=== PATIENT | male | born 1930 | race Caucasian/White ===

== ENCOUNTER 2017-03-10 11:27 | Inpatient (IN) | payer MEDICARE ==
[2017-03-10] MEDS ORDERED: SODIUM CHLORIDE 0.9% 1,000 ML IV STA (11:58)
--- NOTE | 2017-03-10 12:01 | ED ---
General Adult HPI - General Chief complaint: Extremity Injury, Lower Stated complaint: PVD Time Seen by Provider: 03/10/17 11:34 Source: patient, family, RN notes reviewed Mode of arrival: EMS Limitations: no limitations - History of Present Illness Initial comments: Patient is a pleasant 86-year-old male presenting to the emergency department with concerns for leg wounds. Patient has chronic leg problems and leg wounds. Patient has previously been seen in the wound center for this. Pain has been worse over the past few days. Patient has limited ability take care of self. No fevers. Family states wounds and redness has worsened over the past couple of days. Discomfort is however this time following Glen at home. - Related Data Home Medications Medication Instructions Recorded Confirmed HYDROcodone/APAP 7.5-325MG [Glen 1 tab PO Q6HR PRN 01/05/15 03/10/17 7.5-325] Simvastatin [Zocor] 40 mg PO HS 01/05/15 03/10/17 Aspirin EC [Ecotrin Low Dose] 81 mg PO DAILY 02/07/15 03/10/17 Losartan [Cozaar] 50 mg PO BID 05/21/15 03/10/17 Previous Rx's Medication Instructions Recorded Spironolactone [Aldactone] 25 mg PO DAILY #60 tab 05/28/15 Allergies Allergy/AdvReac Type Severity Reaction Status Date / Time No Known Allergies Allergy Verified 03/10/17 13:15 Review of Systems ROS Statement: Those systems with pertinent positive or pertinent negative responses have been documented in the HPI. ROS Other: All systems not noted in ROS Statement are negative. Constitutional: Denies: fever, chills Eyes: Denies: eye pain ENT: Denies: ear pain Respiratory: Denies: cough Cardiovascular: Denies: chest pain Endocrine: Denies: fatigue Gastrointestinal: Denies: abdominal pain Genitourinary: Denies: dysuria Musculoskeletal: Denies: back pain Skin: Reports: rash Neurological: Denies: headache Past Medical History Past Medical History: Coronary Artery Disease (CAD), Chest Pain / Angina, Heart Failure, Hyperlipidemia, Hypertension, Myocardial Infarction (IA) Additional Past Medical History / Comment(s): CELLULITIS, CHRONIC BACK PAIN, psoriases, 3-15 wound culture(legs came back mssa) Last Myocardial Infarction Date:: 1989 History of Any Multi-Drug Resistant Organisms: None Reported Past Surgical History: Back Surgery, Bowel Resection, Coronary Bypass/CABG, Hernia Repair, Pacemaker, Tonsillectomy Additional Past Surgical History / Comment(s): small bowel resection d/t blockage, yessy inguinal hernia repairCABG in 1989 at [facility]. Past Anesthesia/Blood Transfusion Reactions: No Reported Reaction Type of Cardiac Device: AICD Device Placement Date:: May 19, 2015 Past Psychological History: No Psychological Hx Reported Additional Psychological History / Comment(s): . Lives in the family home with his . He is a lifelong nonsmoker. 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 Smoking Status: Never smoker Past Alcohol Use History: None Reported Past Drug Use History: None Reported - Past Family History Father Family Medical History: Coronary Artery Disease (CAD) Additional Family Medical History / Comment(s): of heart attack age 86 Mother Additional Family Medical History / Comment(s): age 77 of stroke or heart attack General Exam Limitations: no limitations General appearance: alert, in no apparent distress Head exam: Present: atraumatic Eye exam: Present: normal appearance, PERRL ENT exam: Present: normal oropharynx Neck exam: Present: normal inspection Respiratory exam: Present: normal lung sounds bilaterally Cardiovascular Exam: Present: regular rate, normal rhythm, other (Difficult to obtain pedal pulses by palpation. Cap refill less than 2 seconds. No pallor or coolness.) GI/Abdominal exam: Present: soft. Absent: tenderness Extremities exam: Present: other (Bilateral lower leg erythema and multiple skin ulcers stage II to 3.) Neurological exam: Present: alert Psychiatric exam: Present: normal affect, normal mood Skin exam: Present: erythema (Bilateral lower leg with multiple skin ulcers) Medical Decision Making - Medical Decision Making Patient was updated. Case was discussed in detail with Dr. Lopez who patient does have an appointment with today. He will admit. Consult for Dr. ware. IV antibiotics will be started. - Lab Data Result diagrams: 03/10/17 12:48 Lab Results 03/10/17 03/10/17 Range/Units 12:48 12:48 WBC 12.4 H (3.8-10.6) k/uL RBC 5.19 (4.30-5.90) m/uL Hgb 14.1 (13.0-17.5) gm/dL Hct 46.1 (39.0-53.0) % MCV 88.9 (80.0-100.0) fL MCH 27.1 (25.0-35.0) pg MCHC 30.5 L (31.0-37.0) g/dL RDW 14.6 (11.5-15.5) % Plt Count 199 (150-450) k/uL Neutrophils % 76 % Lymphocytes % 14 % Monocytes % 7 % Eosinophils % 1 % Basophils % 1 % Neutrophils # 9.4 H (1.3-7.7) k/uL Lymphocytes # 1.8 (1.0-4.8) k/uL Monocytes # 0.8 (0-1.0) k/uL Eosinophils # 0.1 (0-0.7) k/uL Basophils # 0.1 (0-0.2) k/uL Hypochromasia Marked PT 12.3 H (9.0-12.0) sec INR 1.2 (<1.1) APTT 26.4 (22.0-30.0) sec Disposition Clinical Impression: Bilateral lower leg cellulitis Disposition: ADMITTED IP TO THIS [facility] Time of Disposition: 13:27
[2017-03-10 13:13] LABS: Basophils # (A) 0.1 k/uL (0-0.2); Basophils % (A) 1 %; CH 27.1; CHCM 30.5; Eosinophils # (A) 0.1 k/uL (0-0.7); Eosinophils % (A) 1 %; HCT 46.1 % (39.0-53.0); HDW 2.81; HGB 14.1 gm/dL (13.0-17.5); Hypochromasia Marked; Luc # (Auto) 0.26; Luc % (Auto) 2; Lymphocytes # (A) 1.8 k/uL (1.0-4.8); Lymphocytes % (A) 14 %; MCH 27.1 pg (25.0-35.0); MCHC 30.5 g/dL (31.0-37.0); MCV 88.9 fL (80.0-100.0); Mean Platelet Volume 7.1; Monocytes # (A) 0.8 k/uL (0-1.0); Monocytes % (A) 7 %; Neutrophils # (A) 9.4 k/uL (1.3-7.7); Neutrophils % (A) 76 %; RBC 5.19 m/uL (4.30-5.90); RDW 14.6 % (11.5-15.5); WBC 12.4 k/uL (3.8-10.6); WBC (Perox) 12.19
[2017-03-10 13:22] LABS: INR 1.2 (<1.1); Partial Thromboplastin Time 26.4 sec (22.0-30.0); Prothrombin Time 12.3 sec (9.0-12.0)
[2017-03-10 13:24] LABS: ALT 30 U/L (21-72); AST 38 U/L (17-59); Alkaline Phosphatase 113 U/L (38-126); Anion Gap 8 mmol/L; Blood Urea Nitrogen 32 mg/dL (9-20); Calcium 9.6 mg/dL (8.4-10.2); Carbon Dioxide 25 mmol/L (22-30); Chloride 105 mmol/L (98-107); Glucose 98 mg/dL (74-99); Non-African American GFR(MDRD) >60 (>60 ml/min/1.73 sqM); Sodium 138 mmol/L (137-145); Total Bilirubin 1.4 mg/dL (0.2-1.3); Total Protein 7.2 g/dL (6.3-8.2)
[2017-03-10] MEDS ORDERED: ACETAMINOPHEN TAB 325 MG TAB PO PRN (13:27)
[2017-03-10] MEDS ORDERED: HYDROcodone/APAP 5-325MG 1 EACH TAB PO PRN (13:27)
[2017-03-10] MEDS ORDERED: NALOXONE 0.4 MG/ML 1 ML VIAL IV PRN (13:27)
[2017-03-10] MEDS ORDERED: AMPICILLIN-SULBACTAM 3 GM in SODIUM CHLORIDE 0.9% 100 ML IVPB STA (13:31)
[2017-03-10 13:38] LABS: Potassium 5.2 mmol/L (3.5-5.1)
[2017-03-10] MEDS: MORPHINE SULFATE 4 MG/ML SYRINGE IV PRN ×2 (13:50→20:31)
--- NOTE | 2017-03-10 14:10 | XR ---
EXAMINATION TYPE: XR tibia fibula bilateral DATE OF EXAM: 03/10/2017 1:51 PM COMPARISON: NONE HISTORY: Swelling TECHNIQUE: Two views are submitted bilaterally. FINDINGS: The osseous structures are intact. The joint spaces are preserved. Diffuse osteopenia noted. There are vascular calcifications. Arthropathy of the ankle and knee joints. Calcification the anterior sof t tissues of anterior to the right femur may be vascular related to synovial calcifications. IMPRESSION: 1. No acute osseous abnormality. Diffuse osteopenia and post arthritic changes. No diagnostic evidenc e of osteomyelitis.
[2017-03-10] MEDS ORDERED: AMPICILLIN-SULBACTAM 1.5 GM in SODIUM CHLORIDE 0.9% 50 ML IVPB SCH (18:00)
[2017-03-10] MEDS: COLLAGENASE 250 UNIT/GM OINTMENT 30 GM TUBE TOPICAL SCH (20:24)
[2017-03-10] MEDS: LOSARTAN 50 MG TAB PO SCH (20:30)
[2017-03-10] MEDS: ceFAZolin 2 GM in SODIUM CHLORIDE 0.9% 100 ML IVPB SCH (20:30)
[2017-03-10] MEDS: ATORVASTATIN 40 MG TAB PO SCH (20:30)
[2017-03-10] MEDS: SODIUM CHLORIDE 0.9% 1,000 ML IV SCH (20:32)
[2017-03-10] MEDS: NYSTATIN 100,000 UNIT/GM POWD 15 GM TOPICAL SCH (20:39)
[2017-03-10] MEDS: HYDROcodone/APAP 5-325MG 1 EACH TAB PO PRN (23:43)
[2017-03-10] MEDS ORDERED: IPRATROPIUM 0.5 MG/2.5 ML NEBU INHALATION PRN (23:48)
[2017-03-10] MEDS ORDERED: ALBUTEROL NEBULIZED 2.5 MG/3 ML INHALATION PRN (23:49)
[2017-03-10] MEDS ORDERED: FUROSEMIDE 10 MG/ML 4 ML VIAL IV STA (23:50)
[2017-03-10] MEDS ORDERED: ALBUTEROL NEB (CONC) 2.5 MG/0.5 ML INHALATION PRN (23:56)
[2017-03-11] MEDS ORDERED: IPRATROPIUM-ALBUTEROL 3 ML NEB INHALATION PRN (00:16)
--- NOTE | 2017-03-11 00:47 | XR ---
EXAM: XR Chest, 1 View CLINICAL HISTORY: Reason: shortness of breathe TECHNIQUE: Frontal view of the chest. COMPARISON: Chest radiographs 07/29/2016 FINDINGS: Lungs: [id number] cardiac enlargement. Thoracic aorta is tortuous and elongated. There is mild pulmonary vascular congestion. Increased interstitial opacities throughout both lungs with more confluence infiltrative opacities in both lung bases. Pleural space: Evidence of small bilateral pleural effusions. Right diaphragmatic calcified pleural plaques. No evidence of pneumothorax. Heart: The moderate cardiac enlargement. Mediastinum: Unremarkable. Bones/joints: Post surgical changes of previous median sternotomy. Cardiac pacer/defibrillator device has leads extending to region of right ventricle. Degenerative changes involve the right shoulder. IMPRESSION: Previous median sternotomy and cardiac surgery. Cardiac pacer/defibrillator device. Mild to moderate cardiomegaly with findings suggesting congestive failure and mild pulmonary edema with small bilateral pleural effusions. Underlying basilar pneumonia cannot be excluded and clinical correlation is recommended.
[2017-03-11] MEDS: ceFAZolin 2 GM in SODIUM CHLORIDE 0.9% 100 ML IVPB SCH ×2 (02:04→08:22)
[2017-03-11 02:50] LABS: Amorphous Sediment,Urine Rare /hpf; Appearance,Urine Clear (Clear); Bilirubin,Urine Negative (Negative); Glucose,Urine (UA) Negative (Negative); Ketones,Urine Negative (Negative); Leukocyte Esterase,Urine Negative (Negative); Mucus,Urine Rare /hpf; Nitrite,Urine Negative (Negative); Particle Count 1392; Protein,Urine Negative (Negative); RBC,Urine >182 /hpf (0-5); Squamous Epithelial Cell,Urine <1 /hpf (0-4); UA Billing (MACRO vs. MICRO) MICRO; Urobilinogen,Urine <2.0 mg/dL (<2.0); WBC,Urine 1 /hpf (0-5)
[2017-03-11] MEDS: IPRATROPIUM-ALBUTEROL 3 ML NEB INHALATION SCH ×4 (07:47→20:50)
--- NOTE | 2017-03-11 07:49 | CONS ---
DATE OF CONSULTATION: 03/10/2017 Reason for consultation is lower extremity wound and cellulitis. HISTORY OF PRESENT ILLNESS: The patient is an 86-year-old male with a past medical history significant for coronary artery disease and cellulitis. Patient presenting to the ER now with occurrence of swelling redness and warmth to his lower extremities. Patient did mention that over the last 2 weeks, his legs were more swollen, he had have some blister that has opened up leading to some superficial ulceration. The legs are getting more red and painful. Pain described to be throbbing, 5 to 6/10 in radiation and no significant drainage from the wound. The patient denies any high-grade fever; however, did have some chills. With these symptoms, the patient has been evaluated by the ER physician, has been diagnosed with cellulitis and admitted to the hospital. I was asked to see the patient for further recommendation regarding antibiotic therapy. REVIEW OF SYSTEMS: CONSTITUTIONAL: Positive for weakness and chills. EYES: No complaint. ENT: No complaint. RESPIRATORY: No complaint. CARDIOVASCULAR: No complaint. GENITOURINARY: No complaint. GASTROINTESTINAL: No complaint. MUSCULOSKELETAL: No complaint. INTEGUMENT: As per HPI. PSYCHOLOGICAL: No complaint. ENDOCRINE: No complaint. NEUROLOGIC: No complaint. PAST MEDICAL HISTORY: Coronary artery disease and heart failure, hypertension, hyperlipidemia, and lower extremity venostasis ulcer and cellulitis, chronic back pain. PAST SURGICAL HISTORY: Back surgery, bowel resection, coronary artery bypass grafting, hernia repair, pacemaker placement, tonsillectomy, AICD placement. SOCIAL HISTORY: No history of smoking, drinking, or drug use. FAMILY HISTORY: Father has coronary artery disease, of heart disease at the age of 86, mother from stroke at the age of 77. ALLERGIES: No known drug allergies. Medications currently include the patient is on Tylenol, Vina, aspirin, Lipitor, Cozaar, morphine sulfate, Narcan, nystatin, did receive dose of Unasyn in the ER. On examination, blood pressure is 129/67 with a pulse of 87, temperature 96.9, he is 94% on room air. General description is an elderly male, lying in bed in no distress. No tachypnea or accessory muscle for respiration use. HEENT examination shows no pallor or scleral icterus. Oral mucous membrane dry. NECK: Trachea central, no thyromegaly. LUNGS: Unlabored breathing. Clear to auscultation anteriorly. HEART: S1, S2. Regular rate and rhythm. ABDOMEN: Soft, no tenderness. Lower extremity with some superficial laceration and chronic venostasis with erythema surrounding it and evidence of athlete's foot. No foul-smelling drainage. NEUROLOGICAL: The patient is awake, alert, oriented x3. LABS: Hemoglobin is 14.1, white count is 12.4. BUN of 32 with a creatinine of 0.79. Electrolytes have been normal. DIAGNOSTIC IMPRESSION AND PLAN: Patient with bilateral lower extremity superficial ulceration likely venostasis ulcer with secondary cellulitis in a patient with evidence of athlete's foot likely a streptococcal cellulitis. PLAN: 1. Discontinue the Unasyn. 2. Start the patient on cefazolin 2 gm q.8. 3. Will apply Santyl to the wound after following with a moist dressing and then an Hai wrap from just above the toes to below the knee. 4. Nystatin cream in between the toes. 5. Will follow up on the clinical condition and cultures to further adjust the medication if needed. Thank you for this consultation. Will follow this patient along with you. POLO
[2017-03-11] MEDS ORDERED: ALBUTEROL NEBULIZED 2.5 MG/3 ML INHALATION SCH (08:00)
[2017-03-11] MEDS ORDERED: IPRATROPIUM 0.5 MG/2.5 ML NEBU INHALATION SCH (08:00)
[2017-03-11] MEDS ORDERED: ALBUTEROL NEB (CONC) 2.5 MG/0.5 ML INHALATION SCH (08:00)
[2017-03-11] MEDS: SPIRONOLACTONE 25 MG TAB PO SCH (08:21)
[2017-03-11] MEDS: ASPIRIN 81 MG CHEW PO SCH (08:21)
[2017-03-11] MEDS: LOSARTAN 50 MG TAB PO SCH ×2 (08:21→20:39)
[2017-03-11] MEDS: NYSTATIN 100,000 UNIT/GM POWD 15 GM TOPICAL SCH ×2 (08:23→20:40)
[2017-03-11] MEDS: HYDROcodone/APAP 5-325MG 1 EACH TAB PO PRN ×3 (08:23→16:30)
--- NOTE | 2017-03-11 08:32 | HP ---
DATE OF ADMISSION: CHIEF COMPLAINT: Pain in legs. HISTORY OF PRESENT ILLNESS: This is another admission for this 86-year-old gentleman who has chronic infected ulcerations of the lower legs and feet. This appears to be due to arterial insufficiency. He and his family states that he sees a physician for the ulcers, but that he has never undergone an arterial vascular evaluation. Pain has gotten severe that he cannot walk. He does have superficial ulcers of the lower legs, ankles and feet. REVIEW OF SYSTEMS: He has had no CVAs, neurologic problems, shortness of breath, cough, hemoptysis, etc. but does have a history of heart disease. He had a cardiac arrest in the past and underwent a 5-vessel coronary artery bypass in 1984. REVIEW OF SYSTEMS: He has had no other complaints. He had no history of pulmonary disease. He has never smoked. He has not recently had any angina, orthopnea, PND, palpitations, etc. He has had no significant abdominal pain, food intolerance, nausea, vomiting, hematemesis, melena, hematochezia, jaundice, etc. His renal function is normal according to the family history. He is not diabetic. Family history and personal and social histories reveal that he is on aspirin, ( ), Zocor, Cozaar and Vicodin 7.5. Other surgeries include 3 procedures on his back, release of the small bowel obstruction, 2 hernia, and placement of a pacemaker/defibrillator. He has been told that he has rheumatoid arthritis. PHYSICAL EXAMINATION: Blood pressure 151/78 with a pulse of 80, respirations of 25, and he is afebrile. GENERAL: He appeared to be well developed, well nourished and in no acute distress. Skin color is normal. Skin is warm and dry. He might have been slightly pale. Neck veins not distended. The carotids are normal. Chest is clear. Cardiac exam demonstrated what sounded like sinus rhythm, but no murmurs or extra sounds. ABDOMEN: Soft, nontender without visceromegaly or masses. Extremities demonstrated erythema from the knees down with multiple infected ulcers of varying sizes on the shins, sides of the lower legs, over the malleoli and on the top. Feet were cool and pulses cannot be palpated. There is moderate edema. Neurologically, he is intact. IMPRESSION: 1. Peripheral vascular occlusive disease. 2. Ischemic ulcers of the lower extremities. 3. History of coronary artery disease with coronary artery bypass graft. 4. History of cardiac arrhythmia. PLAN: 1. Bed rest. 2. IV fluids. 3. IV antibiotics. 4. Vascular Surgery consult.
--- NOTE | 2017-03-11 09:44 | P.PN ---
Subjective 86-year-old male being seen and examined. Patient continues to report having pain in the bilateral lower extremities. Hai wrap son to the bilateral lower extremities there is an increase improvement with decrease edema to the lower extremities. Patients being followed by Dr.saeed Dr. Martinez recommendations noted appreciated and reviewed Objective - Vital Signs Vital signs: Vital Signs Temp 98.3 F 03/11/17 07:00 Pulse 70 03/11/17 08:00 Resp 20 03/11/17 08:00 BP 145/70 03/11/17 07:00 Pulse Ox 94 L 03/11/17 07:00 Intake & Output 03/10/17 03/11/17 03/11/17 18:59 06:59 18:59 Intake Total 180 Output Total 2405 1000 Balance -2225 -1000 Weight 60.5 kg 60.5 kg Intake: IV 180 Sodium Chloride 0.9% 1, 80 000 ml @ 20 mls/hr IV . Q24H SANDIE Rx#:[id number] ceFAZolin 2 gm In Sodium 100 Chloride 0.9% 100 ml @ 100 mls/hr IVPB Q8HR SANDIE Rx#:[id number] Output: Urine 2125 1000 Uretheral (Adler) 1000 Post Void Residual 280 Other: Voiding Method Bedside Commode Urinal Urinal # Voids 75 75 - Exam GENERAL APPEARANCE: The patient is alert, oriented, in no acute distress. VITAL SIGNS: Reviewed HEENT: Head is normocephalic and atraumatic. Pupils are equal and reactive. The nares are patent. Oropharynx is clear without lesions. NECK: Supple without lymphadenopathy. Traches midline. HEART: S1, S2. Regular rate and rhythm. Denying pain LUNGS: No crackles or wheezes are heard. ABDOMEN: Soft, nontender, nondistended with good bowel sounds. No peritoneal signs. No palpable organomegaly or masses. EXTREMITIES: Normal skin color and turgor. Radial pedal pulses are 2/4 bilaterally. Hai wrap son to the bilateral lower extremities decreasing edema to the lower extremities NEUROLOGICAL: No focal deficits. Strength and sensation are grossly intact. - Labs CBC & Chem 7: 03/10/17 12:48 03/10/17 12:48 Labs: Abnormal Lab Results - Last 24 Hours (Table) 03/11/17 Range/Units 02:09 Urine Blood Moderate H (Negative) Urine RBC >182 H (0-5) /hpf Amorphous Sediment Rare H (None) /hpf Urine Mucus Rare H (None) /hpf Microbiology - Last 24 Hours (Table) 03/10/17 13:46 Gram Stain - Preliminary Leg - Right Wound Culture - Preliminary Assessment and Plan Plan: Impression Present on admission bilateral lower extremity cellulitis below the knee Known coronary artery disease with prior coronary artery bypass grafting Present on admission superficial ulceration with a blister formation to the bilateral lower extremities Present on admission chronic venous stasis with erythema area with evidence of athletic foot disease Present on admission peripheral vascular occlusive disease Plan Pain control Resume home meds as appropriate Continue recommendations by Dr. Tai infectious disease antibiotics as directed Continue recommendations by Dr. Martinez vascular Further recommendations pending DVT and GI prophylaxis The above dictated assessment and findings were discussed with dr tess Dan and the plan of care have been dictated as directed. Cassandra Moon nurse practitioner acting as a scribe for dr pulido
[2017-03-11 09:54] LABS: Basophils # (A) 0.1 k/uL (0-0.2); Basophils % (A) 0 %; CHCM 30.7; Eosinophils # (A) 0.1 k/uL (0-0.7); Eosinophils % (A) 1 %; HCT 42.4 % (39.0-53.0); HDW 2.89; HGB 13.1 gm/dL (13.0-17.5); Hypochromasia Moderate; Luc # (Auto) 0.18; Luc % (Auto) 1; Lymphocytes # (A) 1.1 k/uL (1.0-4.8); Lymphocytes % (A) 8 %; MCH 27.2 pg (25.0-35.0); MCHC 30.8 g/dL (31.0-37.0); MCV 88.3 fL (80.0-100.0); Mean Platelet Volume 6.9; Monocytes # (A) 0.7 k/uL (0-1.0); Monocytes % (A) 5 %; Neutrophils # (A) 11.8 k/uL (1.3-7.7); Neutrophils % (A) 85 %; RDW 14.4 % (11.5-15.5); WBC (Perox) 14.13
[2017-03-11] MEDS: COLLAGENASE 250 UNIT/GM OINTMENT 30 GM TUBE TOPICAL SCH (10:00)
[2017-03-11 10:04] LABS: Chloride 104 mmol/L (98-107); Glucose 176 mg/dL (74-99); Potassium 4.4 mmol/L (3.5-5.1); Total Protein 6.5 g/dL (6.3-8.2)
[2017-03-11 10:05] LABS: ALT 27 U/L (21-72); AST 28 U/L (17-59); Alkaline Phosphatase 95 U/L (38-126); Anion Gap 10 mmol/L; Blood Urea Nitrogen 25 mg/dL (9-20); Calcium 8.9 mg/dL (8.4-10.2); Carbon Dioxide 26 mmol/L (22-30); Magnesium 1.7 mg/dL (1.6-2.3); Non-African American GFR(MDRD) >60 (>60 ml/min/1.73 sqM); Sodium 140 mmol/L (137-145); Total Bilirubin 1.4 mg/dL (0.2-1.3)
[2017-03-11] MEDS: MORPHINE SULFATE 4 MG/ML SYRINGE IV PRN (10:52)
[2017-03-11] MEDS ORDERED: IV VANCOMYCIN PER PHARMACY 1 EACH MISC MISCELLANE PRN (13:00)
--- NOTE | 2017-03-11 13:14 | P.CON ---
Consult Note - . Consult date: 03/11/17 Assessment/Plan:: DR. WILSON [facility]; LISA GARCIA IS COVERING UNTIL 03/14/2017 AT 0800 impression 1. 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 pulmonary fibrosis 3. CHF/ ischemic cardiomyopathy 4. atrial fibrillation plan; 1. mild compression dressings with aquacell silver and adaptik on open wounds 2. offload both heels and elevate both legs 3. continue current medical regimen/antibiotics 4. Dr. Wilson will be available on 03/14/2017 for further questions/orders HPI; 86 y/o man, poor historian, long-standing patient of Dr. Wilson with known mixed arterial and venous ulcers of both legs. Patient underwent saphenectomy left leg years ago for CABG procedure. Now with erythema and bullae formation both legs that in places are clean and granulating ulcers. Patient has been treated in the wound care center in the past for these ulcers with aquacell silver dressings PMHx, PSHx, Habits, Meds; reviewed PE: HEENT; no bruits, mild JVD, trachea midline, no thyromegaly or lymphadenopathy Lungs; clear bilaterally Heart; RRR, normal S1 and S2; well-healed median sternotomy incision ABD; soft, non-tender, well-healed lower midline incision EXTR; femoral pulses are palpable bilaterally; popliteal and pedal pulses are not, capillary refill of 3 seconds bilaterally; evidence of venous insufficiency CEAP class 5 bilaterally; well-healed left saphenectomy Ulcers both legs as follows; all are granulating, no necrotic tissue right dorsum foot 3x2cm right lower leg anteriorly; 5.5x4 cm and 3.5x2cm left leg anteriorly; 4.5x1cm and 2.5x2cm erythema bilaterally with ascending lymphangitis left leg impression/plan as noted above
[2017-03-11] MEDS: CIPROFLOXACIN HCL 500 MG TAB PO SCH ×2 (13:30→20:39)
[2017-03-11] MEDS ORDERED: VANCOMYCIN 1,750 MG in SODIUM CHLORIDE 0.9% 250 ML IVPB ONE (14:00)
--- NOTE | 2017-03-11 14:11 | PN ---
CHIEF COMPLAINT: Cellulitis in the legs. HISTORY OF PRESENT ILLNESS: This gentleman is complaining of a lot of discomfort in the legs. They have been wrapped with Hai wraps. His pain is actually a little bit worse. PHYSICAL EXAM: He remains slightly pale. Chest is clear. Cardiac exam is normal. ABDOMEN: Soft and nontender. Extremities are wrapped with Hai wraps. There is swelling and little bit of cyanosis in the toes. IMPRESSION: 1. Ischemic ulcers of the lower extremities. 2. Cellulitis of the lower extremities. PLAN: Continue with bed rest, IV antibiotics and await for further recommendations from vascular surgery and infectious disease.
[2017-03-11] MEDS: ATORVASTATIN 40 MG TAB PO SCH (20:39)
[2017-03-12] MEDS: HYDROcodone/APAP 5-325MG 1 EACH TAB PO PRN ×4 (00:04→23:13)
[2017-03-12] MEDS: VANCOMYCIN 1,000 MG in SODIUM CHLORIDE 0.9% 250 ML IVPB SCH ×3 (00:05→23:16)
[2017-03-12] MEDS: SODIUM CHLORIDE 0.9% 1,000 ML IV SCH ×2 (00:09→13:35)
--- NOTE | 2017-03-12 07:25 | PN ---
DATE OF SERVICE: 03/11/2017 Reason for follow-up is bilateral lower extremity venostasis ulcers and cellulitis. INTERVAL HISTORY: The patient is afebrile. Has been breathing comfortably. Complaining of pain in her leg area. Denies any chest pain or shortness of breath. No cough. No abdominal pain or any diarrhea. On examination, blood pressure 125/56 with pulse of 68, temperature 97.4. He is 94% in room air. Major description is middle aged male up in the bed in no distress. RESPIRATORY SYSTEM: Unlabored breathing. Clear to auscultation anteriorly. HEART: S1, S2. Regular rate and rhythm. ABDOMEN: Soft. No tenderness. LEGS: Currently wrapped up. No obvious drainage on the dressing. LABS: Hemoglobin is 13.1, white count 14 with a BUN of 25, creatinine 0.81. Wound culture showing gram-negative and possible MRSA. DIAGNOSTIC IMPRESSION AND PLAN: Patient with bilateral lower extremity venostasis ulcer with secondary cellulitis. Culture now showing gram-negative and possible methicillin-resistant Staphylococcus aureus. Antibiotic will be adjusted to Vancomycin and p.o. Cipro. Continue local wound care to the legs. Continue supportive care. POLO
[2017-03-12] MEDS: IPRATROPIUM-ALBUTEROL 3 ML NEB INHALATION SCH ×4 (07:42→20:57)
[2017-03-12] MEDS: ASPIRIN 81 MG CHEW PO SCH (08:36)
[2017-03-12] MEDS: SPIRONOLACTONE 25 MG TAB PO SCH (08:36)
[2017-03-12] MEDS: LOSARTAN 50 MG TAB PO SCH ×2 (08:36→21:35)
[2017-03-12] MEDS: CIPROFLOXACIN HCL 500 MG TAB PO SCH ×2 (08:36→21:35)
--- NOTE | 2017-03-12 13:10 | PN ---
CHIEF COMPLAINT: Cellulitis and multiple ulcers of the lower extremities. HISTORY OF PRESENT ILLNESS: The gentleman is doing okay, but he is still complaining of a lot of pain in the lower legs. They are currently wrapped with Hai wraps and being followed by Vascular Surgery. PHYSICAL EXAM: Toes are a little bit cyanotic, but there is capillary fill. Chest is clear. Cardiac exam is normal. ABDOMEN: Soft, nontender. IMPRESSION: 1. Cellulitis of the lower extremities with multiple ulcers. 2. Peripheral vascular occlusive disease. PLAN: Continue current treatment and follow with Vascular Surgery regarding any further possible interventions.
[2017-03-12] MEDS: NYSTATIN 100,000 UNIT/GM POWD 15 GM TOPICAL SCH ×2 (13:14→21:35)
[2017-03-12] MEDS: COLLAGENASE 250 UNIT/GM OINTMENT 30 GM TUBE TOPICAL SCH (13:14)
[2017-03-12] MEDS: MORPHINE SULFATE 4 MG/ML SYRINGE IV PRN (15:49)
[2017-03-12] MEDS: ATORVASTATIN 40 MG TAB PO SCH (21:35)
[2017-03-13] MEDS: HYDROcodone/APAP 5-325MG 1 EACH TAB PO PRN ×3 (03:21→21:49)
[2017-03-13] MEDS: MORPHINE SULFATE 4 MG/ML SYRINGE IV PRN ×2 (07:43→12:37)
[2017-03-13] MEDS: COLLAGENASE 250 UNIT/GM OINTMENT 30 GM TUBE TOPICAL SCH (07:43)
[2017-03-13] MEDS: NYSTATIN 100,000 UNIT/GM POWD 15 GM TOPICAL SCH ×2 (07:45→21:50)
--- NOTE | 2017-03-13 07:58 | PN ---
DATE OF SERVICE: 03/12/2017 Reason for follow-up: Bilateral lower extremity venous stasis ulcer and cellulitis. INTERVAL HISTORY: The patient did have a low grade fever this evening. The patient other denies significant chest pain or shortness of breath, no cough, abdominal pain or any worsening pain in the leg area. On examination, blood pressure 128/72 with a pulse of 64, temperature 97.5. He is 95% on 2 liters nasal cannula. GENERAL DESCRIPTION: Elderly male lying in bed in no distress. RESPIRATORY SYSTEM: Unlabored breathing. Clear to auscultation anteriorly. HEART: S1, S2. Regular rate and rhythm. Abdomen: Soft, no tenderness. Bilateral leg wound cellulitis. No obvious drainage on the dressing. LABS: Hemoglobin is 13.1, white count of 14 as of yesterday. the wound culture finalized with an E. coli with Enterobacter and MRSA. Blood culture negative. DIAGNOSTIC IMPRESSION AND PLAN: Patient with bilateral lower extremity venostasis ulcer with secondary cellulitis. Wound culture with MRSA Enterobacter specie currently covered on vancomycin, pharmacy to dose along with Cipro. Will continue local wound care with Santyl and martin wrap to the wound to evaluate the wounds tomorrow. Continue supportive care. POLO
[2017-03-13] MEDS: IPRATROPIUM-ALBUTEROL 3 ML NEB INHALATION SCH ×4 (08:11→20:44)
[2017-03-13] MEDS: ASPIRIN 81 MG CHEW PO SCH (08:23)
[2017-03-13] MEDS: LOSARTAN 50 MG TAB PO SCH ×2 (08:23→21:49)
[2017-03-13] MEDS: SPIRONOLACTONE 25 MG TAB PO SCH (08:23)
[2017-03-13] MEDS: CIPROFLOXACIN HCL 500 MG TAB PO SCH ×2 (08:25→21:49)
[2017-03-13] MEDS ORDERED: VANCOMYCIN TROUGH DUE 1 EACH MISC MISCELLANE ONE (11:00)
[2017-03-13 11:55] LABS: Anion Gap 8 mmol/L; Blood Urea Nitrogen 24 mg/dL (9-20); Calcium 8.7 mg/dL (8.4-10.2); Carbon Dioxide 23 mmol/L (22-30); Chloride 107 mmol/L (98-107); Glucose 137 mg/dL (74-99); Non-African American GFR(MDRD) >60 (>60 ml/min/1.73 sqM); Potassium 4.8 mmol/L (3.5-5.1); Sodium 138 mmol/L (137-145)
[2017-03-13] MEDS: VANCOMYCIN 1,000 MG in SODIUM CHLORIDE 0.9% 250 ML IVPB SCH (13:04)
[2017-03-13] MEDS: SODIUM CHLORIDE 0.9% 1,000 ML IV SCH (13:17)
--- NOTE | 2017-03-13 20:06 | PN ---
DATE OF SERVICE: 03/13/2017 CHIEF COMPLAINT: Cellulitis and stasis ulcers of the lower extremities. HISTORY OF PRESENT ILLNESS: This gentleman is doing fairly well, but he still in quite a bit of pain. He has had no other problems. PHYSICAL EXAMINATION: CHEST: Clear. The cardiac exam is normal. The abdomen soft and nontender and the legs are wrapped. IMPRESSION: Bilateral cellulitis of the lower extremities with stasis ulcers. PLAN: Continue with ( ) and intravenous antibiotics.
[2017-03-13] MEDS: ATORVASTATIN 40 MG TAB PO SCH (21:49)
[2017-03-14] MEDS: MORPHINE SULFATE 4 MG/ML SYRINGE IV PRN (01:13)
[2017-03-14] MEDS: IPRATROPIUM-ALBUTEROL 3 ML NEB INHALATION SCH ×4 (07:30→20:02)
--- NOTE | 2017-03-14 07:44 | PN ---
DATE OF SERVICE: 03/13/2017 Reason for followup is bilateral lower extremity wound and cellulitis. INTERVAL HISTORY: The patient is afebrile. Has been breathing comfortably. Denies any significant chest pain or cough. No abdominal pain. Denies diarrhea or pain in legs. On examination, blood pressure is 119/58 with a pulse of 80, temperature 98. He is 98% on 2 L nasal cannula. General description is an elderly male, up in the chair in no distress. RESPIRATORY SYSTEM: Unlabored breathing. Clear to auscultation anteriorly. HEART: S1, S2. Regular rate and rhythm. ABDOMEN: Soft. No tenderness. Bilateral foot wounds are currently dressed, no obvious drainage. LABS: Wound culture with MRSA and Enterobacter. DIAGNOSTIC IMPRESSION AND PLAN: Patient with bilateral lower extremity venostasis ulcer with secondary cellulitis. Continue local wound care with the Santyl. Followed by moist dressing and Hai wrap to decrease the swelling. continue antibiotic in the form of vancomycin and Cipro with the plan to finish therapy with oral antibiotics. Continue supportive care. MTDD
[2017-03-14] MEDS: ASPIRIN 81 MG CHEW PO SCH (08:14)
[2017-03-14] MEDS: SPIRONOLACTONE 25 MG TAB PO SCH (08:14)
[2017-03-14] MEDS: CIPROFLOXACIN HCL 500 MG TAB PO SCH ×2 (08:14→21:09)
[2017-03-14] MEDS: LOSARTAN 50 MG TAB PO SCH ×2 (08:14→21:09)
[2017-03-14] MEDS: NYSTATIN 100,000 UNIT/GM POWD 15 GM TOPICAL SCH ×2 (08:16→21:14)
[2017-03-14] MEDS: COLLAGENASE 250 UNIT/GM OINTMENT 30 GM TUBE TOPICAL SCH (08:16)
[2017-03-14] MEDS: VANCOMYCIN 1,000 MG in SODIUM CHLORIDE 0.9% 250 ML IVPB SCH ×4 (11:48→23:36)
[2017-03-14] MEDS: SODIUM CHLORIDE 0.9% 1,000 ML IV SCH (13:56)
[2017-03-14] MEDS: HYDROcodone/APAP 5-325MG 1 EACH TAB PO PRN ×3 (14:04→21:12)
[2017-03-14] MEDS: ATORVASTATIN 40 MG TAB PO SCH (21:09)
--- NOTE | 2017-03-14 21:25 | PN ---
DATE OF SERVICE: 03/14/2017 REASON FOR FOLLOWUP: Bilateral lower extremity venostasis ulcers and cellulitis. INTERVAL HISTORY: The patient is afebrile. He has been breathing comfortably. Denies significant pain to the leg wound area. No nausea, no vomiting. Denies any chest pain. No shortness of breath or cough. On examination, blood pressure is 159/75 with a pulse of 80, temperature 96.2. He is 92% on 3 L nasal cannula. General description is an elderly male up in the bed in no distress. RESPIRATORY SYSTEM: Unlabored breathing. Clear to auscultation anteriorly. HEART: S1, S2. Regular rate and rhythm. ABDOMEN: Soft. No tenderness. LEG WOUNDS: Overall slough has decreased. Redness has improved. LABS: No new labs have been obtained today. Creatinine was 0.70 as of yesterday. Wound cultures with enterobacter and MRSA. DIAGNOSTIC IMPRESSION AND PLAN: Patient with bilateral lower extremity venostasis ulcers with secondary cellulitis. Patient did show overall improvement. Plan to switch antibiotic therapy to Bactrim DS one twice a day for about 10 days. Local wound care with Vitoryl. Followup in the office next week. Continue supportive care.
[2017-03-15] MEDS: HYDROcodone/APAP 5-325MG 1 EACH TAB PO PRN ×3 (09:06→21:09)
[2017-03-15] MEDS: NYSTATIN 100,000 UNIT/GM POWD 15 GM TOPICAL SCH ×2 (09:08→21:11)
[2017-03-15] MEDS: LOSARTAN 50 MG TAB PO SCH ×2 (09:08→21:07)
[2017-03-15] MEDS: ASPIRIN 81 MG CHEW PO SCH (09:08)
[2017-03-15] MEDS: CIPROFLOXACIN HCL 500 MG TAB PO SCH ×2 (09:08→21:07)
[2017-03-15] MEDS: SPIRONOLACTONE 25 MG TAB PO SCH (09:08)
[2017-03-15] MEDS: IPRATROPIUM-ALBUTEROL 3 ML NEB INHALATION SCH ×4 (09:17→20:06)
[2017-03-15 09:48] LABS: Anion Gap 9 mmol/L; Blood Urea Nitrogen 24 mg/dL (9-20); Calcium 8.9 mg/dL (8.4-10.2); Carbon Dioxide 25 mmol/L (22-30); Chloride 105 mmol/L (98-107); Glucose 123 mg/dL (74-99); Non-African American GFR(MDRD) >60 (>60 ml/min/1.73 sqM); Potassium 4.6 mmol/L (3.5-5.1); Sodium 139 mmol/L (137-145)
[2017-03-15] MEDS: COLLAGENASE 250 UNIT/GM OINTMENT 30 GM TUBE TOPICAL SCH (11:23)
--- NOTE | 2017-03-15 12:17 | PN ---
DATE OF SERVICE: 03/15/2017 Reason for followup is bilateral lower extremity venostasis ulcer and cellulitis. INTERVAL HISTORY: The patient is afebrile. He is currently breathing comfortably. Denies significant chest pain or shortness of breath or cough. No abdominal pain or any diarrhea. On examination, blood pressure 152/72 with a pulse of 68, temperature 98.1. He is 94% on room air. General description is an elderly male up in the bed in no distress. RESPIRATORY SYSTEM: Unlabored breathing. Clear to auscultation anteriorly. HEART: S1, S2. Regular rate and rhythm. ABDOMEN: Soft, no tenderness. Legs are currently dressed, no obvious drainage on the dressing. LABS: BUN of 24, creatinine 0.74. DIAGNOSTIC IMPRESSION AND PLAN: Patient with bilateral lower extremity venostasis ulcer with secondary cellulitis. Culture positive for Enterobacter and methicillin-resistant Staphylococcus aureus. Plan to finish therapy with oral Bactrim DS one twice a day for about a week. Local wound care with Santyl to the wound with outpatient followup. POLO
[2017-03-15] MEDS: VANCOMYCIN 1,000 MG in SODIUM CHLORIDE 0.9% 250 ML IVPB SCH (13:25)
[2017-03-15] MEDS: SODIUM CHLORIDE 0.9% 1,000 ML IV SCH (13:26)
[2017-03-15 14:41] VITALS: BMI 21.5
--- NOTE | 2017-03-15 17:59 | PN ---
CHIEF COMPLAINT: Infected ulcers of the lower extremities. HISTORY OF PRESENT ILLNESS: This gentleman is doing a little bit better and pain is improving. Apparently Vascular Surgery has no further plans except for local wound care with Hai wraps and elevation. Apparently he does not have a good living situation at home, and he may be going to an extended-care facility. PHYSICAL EXAMINATION: He is alert and oriented. CHEST: Clear. CARDIAC: Normal. Legs are elevated with Hai wraps in place. IMPRESSION: 1. Infected ulcers of the lower extremities. 2. Urinary retention. PLAN: 1. Remove Adler catheter. 2. Discharge to extended-care facility when one is available.
[2017-03-15] MEDS: ATORVASTATIN 40 MG TAB PO SCH (21:07)
[2017-03-15] MEDS: SULFAMETHOX-TMP 800-160MG 1 EACH TAB PO SCH (21:07)
--- NOTE | 2017-03-15 22:46 | PN ---
DATE OF SERVICE: 03/15/2017 CHIEF COMPLAINT: Ischemic ulcers and cellulitis of the lower extremities. HISTORY OF PRESENT ILLNESS: This gentleman is doing fairly well. Pain is under good control. Apparently he does not have a good living situation to go back to, and we are looking for skilled nursing placement. PHYSICAL EXAMINATION: Chest is clear. Cardiac exam is normal. ABDOMEN: Soft and nontender. Extremities are unchanged. IMPRESSION: Ischemic ulcers of the lower extremities with cellulitis. PLAN: Work on skilled nursing placement.
[2017-03-16 07:55] VITALS: BP 139/69; PULSE 66; RESP 20; TEMP 97
[2017-03-16] MEDS: IPRATROPIUM-ALBUTEROL 3 ML NEB INHALATION SCH (08:04)
[2017-03-16] MEDS: SPIRONOLACTONE 25 MG TAB PO SCH (08:12)
[2017-03-16] MEDS: LOSARTAN 50 MG TAB PO SCH (08:12)
[2017-03-16] MEDS: SULFAMETHOX-TMP 800-160MG 1 EACH TAB PO SCH (08:12)
[2017-03-16] MEDS: CIPROFLOXACIN HCL 500 MG TAB PO SCH (08:13)
[2017-03-16] MEDS: ASPIRIN 81 MG CHEW PO SCH (08:13)
[2017-03-16] MEDS: COLLAGENASE 250 UNIT/GM OINTMENT 30 GM TUBE TOPICAL SCH (08:13)
[2017-03-16] MEDS: NYSTATIN 100,000 UNIT/GM POWD 15 GM TOPICAL SCH (08:14)
[2017-03-16] MEDS: HYDROcodone/APAP 5-325MG 1 EACH TAB PO PRN (08:18)
[2017-03-16 08:41] LABS: Anion Gap 6 mmol/L; Blood Urea Nitrogen 28 mg/dL (9-20); Calcium 8.9 mg/dL (8.4-10.2); Carbon Dioxide 24 mmol/L (22-30); Chloride 107 mmol/L (98-107); Glucose 121 mg/dL (74-99); Non-African American GFR(MDRD) >60 (>60 ml/min/1.73 sqM); Potassium 4.6 mmol/L (3.5-5.1); Sodium 137 mmol/L (137-145)
--- NOTE | 2017-03-16 08:48 | P.DS ---
Providers Date of admission: 03/10/17 13:27 Expected date of discharge: 03/16/17 Attending physician: Get Lopez Consults: 03/10/17 17:40 Consult Physician Routine Consulting Provider: Isaac Martinez Consult Reason/Comments: Wounds B/L lower extremities. Do you want consulting provider notified?: Yes Primary care physician: Get Lopez Hospital Course: An 86-year-old male presented on the day of admission to the emergency room with family after patient reportedly was experiencing increase edema to the bilateral lower extremities inability to participate in ADLs. Intravascular consultation was requested. Patient was seen by Dr. Martinez. 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 Patient has a history of having coronary artery by pass grafting procedures and underwent saphenectomy left leg years ago for the coronary artery bypass procedure. Now the patient's legs on admission were very edematous with erythema area and bullae remission involving both legs. There was also granulating ulcers. Patient had been treated in the past with the wound care center for these ulcers with Aquacel silver dressing. Vascular indicated continue with the wound care and that there were no further recommendations continue with Hai wraps and IV Lasix was initiated. Continue with offloading both heels and keep legs elevated at all times. Mild compression dressing with Aquacel silver to the open wounds. Over the course of the hospitalization patient was followed by physical and occupational therapy. Patient was felt to be appropriate candidate to be transferred to subacute rehab. Patient was stabilized on the and transferred to [facility] Ulcers on both legs were showing all granulating no necrotic tissue. The left leg anterior 4.5 x 2.5 ulcer with the right lower extremity measuring 5 x 5 Impression discharge diagnoses Present on admission bilateral lower extremity edema suspect due to mixed arterial and venous ulcers involving lower extremities with cellulitis Known coronary artery disease prior coronary artery bypass grafting Physical debility limited mobility Present on admission class V healing ulcers no necrotic tissue right dorsum foot 3 x 2 cm likely due peripheral vascular disease Class V healing likely due to peripheral vascular disease ulcer right lower extremity anterior 5.5 x 3.5 Present on admission class V left leg anterior 4 0.5 x 2.5 likely due to peripheral vascular disease Peripheral vascular occlusive disease Hyperlipidemia Hypertension Chronic pain narcotic dependency The above dictated assessment and findings were discussed with dr lopez Impression and the plan of care have been dictated as directed. Cassandra Moon nurse practitioner acting as a scribe for dr lopez Plan - Discharge Summary New Discharge Prescriptions: HYDROcodone/APAP 5-325MG [[place] 5-325] 1 each PO Q4H PRN #30 tab PRN Reason: Moderate Pain Sulfamethox-Tmp 800-160Mg [Bactrim DS 800-160 mg] 1 tab PO Q12HR #14 tab Discharge Medication List HYDROcodone/APAP 7.5-325MG [[place] 7.5-325] 1 tab PO Q6HR PRN 01/05/15 [History] Aspirin EC [Ecotrin Low Dose] 81 mg PO DAILY 02/07/15 [History] Losartan [Cozaar] 50 mg PO BID 05/21/15 [History] Spironolactone [Aldactone] 25 mg PO DAILY #60 tab 05/28/15 [Rx] Sulfamethox-Tmp 800-160Mg [Bactrim DS 800-160 mg] 1 tab PO Q12HR #14 tab [Rx] Acetaminophen Tab [Tylenol] 650 mg PO Q6HR PRN #0 tab 03/16/17 [Rx] Aspirin 81 mg PO DAILY chew 03/16/17 [Rx] Atorvastatin [Lipitor] 40 mg PO HS tab 03/16/17 [Rx] Collagenase [Santyl] 1 applic TOPICAL DAILY applic 03/16/17 [Rx] HYDROcodone/APAP 5-325MG [[place] 5-325] 1 each PO Q4H PRN #30 tab 03/16/17 [Rx] Ipratropium-Albuterol Nebulize [Duoneb 0.5 mg-3 mg/3 ml Soln] 3 ml INHALATION RT -QID ampul.neb 03/16/17 [Rx] Nystatin 100,000 Unit/gm Powd [Mycostatin Powder] 1 applic TOPICAL BID applic 03/16/17 [Rx] Spironolactone [Aldactone] 25 mg PO DAILY tab 03/16/17 [Rx] Sulfamethox-Tmp 800-160Mg [Bactrim DS 800-160 mg] 1 each PO BID tab 03/16/17 [ Rx] Follow up Appointment(s)/Referral(s): Get Lopez MD [Primary Care Provider] - 1-2 days Salo Tai MD [STAFF PHYSICIAN] - 03/22/17 12:00 pm Activity/Diet/Wound Care/Special Instructions: Increase activity as tolerated MRSA (contact) isolation Full Code Wound care orders: Aquacell Ag to open areas on bilateral legs, followed by nonstick adaptic, Kerlix, hai wrap to secure. Patient is to be set up to go to the wound care center at the [facility] weekly for wound care Discharge Disposition: TRANSFER TO SNF/ECF
--- NOTE | 2017-03-17 15:08 | PN ---
DATE OF SERVICE: 03/16/2017 CHIEF COMPLAINT: Ischemic ulcers and cellulitis of the lower extremities. HISTORY OF PRESENT ILLNESS: This gentleman has probably benefitted about as much as he will and arrangements are being made for him to go to a [place] [facility] facility and that may be today. This will be arranged by the nurse practitioner.
== END 2017-03-16 11:15 | DRG 603 ==
LOC: EC 11:27 → 5MS5E 13:27
PROVIDERS: ADMIT Family Medicine; ATTEND Family Medicine
DX: L03.116 Cellulitis of left lower limb (principal); I82.503 Chronic embolism and thrombosis of unspecified deep veins of lower extremity, bilateral; F11.20 Opioid dependence, uncomplicated; I83.208 Varicose veins of unspecified lower extremity with both ulcer of other part of lower extremity and inflammation; L97.919 Non-pressure chronic ulcer of unspecified part of right lower leg with unspecified severity; L97.929 Non-pressure chronic ulcer of unspecified part of left lower leg with unspecified severity; L97.819 Non-pressure chronic ulcer of other part of right lower leg with unspecified severity; L97.829 Non-pressure chronic ulcer of other part of left lower leg with unspecified severity; L03.115 Cellulitis of right lower limb; I11.0 Hypertensive heart disease with heart failure; I48.91 Unspecified atrial fibrillation; J84.10 Pulmonary fibrosis, unspecified; I50.9 Heart failure, unspecified; I77.89 Other specified disorders of arteries and arterioles; I25.5 Ischemic cardiomyopathy; B35.3 Tinea pedis; I25.2 Old myocardial infarction; I25.10 Atherosclerotic heart disease of native coronary artery without angina pectoris; E78.5 Hyperlipidemia, unspecified; G89.29 Other chronic pain; R33.9 Retention of urine, unspecified; Z95.1 Presence of aortocoronary bypass graft; Z90.49 Acquired absence of other specified parts of digestive tract; Z95.810 Presence of automatic (implantable) cardiac defibrillator; Z79.82 Long term (current) use of aspirin; Z82.49 Family history of ischemic heart disease and other diseases of the circulatory system; Z79.899 Other long term (current) drug therapy
CPT/HCPCS: 36415; 71010; 80048; 80053; 80202; 81001; 83605; 83735; 85025; 85610; 85730; 87040; 87070; 87077; 87086; 87186; 87205; 94640; 94760; 96361; 96374; 99285

== ENCOUNTER 2017-04-15 00:11 | Inpatient (IN) | payer MEDICARE ==
[2017-04-15] MEDS ORDERED: IBUPROFEN IV 600 MG in SODIUM CHLORIDE 0.9% 250 ML IV STA (00:13)
[2017-04-15] MEDS ORDERED: ACETAMINOPHEN TAB 500 MG TAB PO STA (00:13)
--- NOTE | 2017-04-15 00:16 | ED ---
General Adult HPI - General Stated complaint: Leg Pain Time Seen by Provider: 04/15/17 00:11 Source: RN notes reviewed - History of Present Illness Initial comments: This is an 86-year-old male who has some chronic wounds on his legs. Patient is complaining of bilateral leg pain in the family at this point called EMS. When EMS arrived patient was complaining of bilateral leg pain. Patient states he occasionally does have a cough and coughs up some sputum. Patient denies any difficulty breathing or shortness of breath. Patient denies any chest pain. Patient denies any abdominal pain. Patient denies any headache patient denies lightheadedness patient denies numbness weakness. Patient denies any nausea or vomiting. Patient denies any diarrhea. Patient states his main complaint is his chronic leg pain. There is no new lesions patient does not know of any redness or swelling to the legs. - Related Data Home Medications Medication Instructions Recorded Confirmed Losartan [Cozaar] 50 mg PO BID 05/21/15 04/11/17 Previous Rx's Medication Instructions Recorded Spironolactone [Aldactone] 25 mg PO DAILY #60 tab 05/28/15 Acetaminophen Tab [Tylenol] 650 mg PO Q6HR PRN #0 tab 03/16/17 Aspirin 81 mg PO DAILY chew 03/16/17 Atorvastatin [Lipitor] 40 mg PO HS tab 03/16/17 Collagenase [Santyl] 1 applic TOPICAL DAILY applic 03/16/17 HYDROcodone/APAP 5-325MG [[place] 1 each PO Q4H PRN #30 tab 03/16/17 5-325] Ipratropium-Albuterol Nebulize 3 ml INHALATION RT-QID ampul.neb 03/16/17 [Duoneb 0.5 mg-3 mg/3 ml Soln] Nystatin 100,000 Unit/gm Powd 1 applic TOPICAL BID applic 03/16/17 [Mycostatin Powder] Allergies Allergy/AdvReac Type Severity Reaction Status Date / Time No Known Allergies Allergy Verified 04/11/17 14:59 Review of Systems ROS Statement: Those systems with pertinent positive or pertinent negative responses have been documented in the HPI. ROS Other: All systems not noted in ROS Statement are negative. Past Medical History Past Medical History: Atrial Fibrillation, Coronary Artery Disease (CAD), Chest Pain / Angina, Heart Failure, Hyperlipidemia, Hypertension, Myocardial Infarction (LA), Osteoarthritis (OA), Pneumonia, Rheumatoid Arthritis (RA), Skin Disorder, Vascular Disorder Additional Past Medical History / Comment(s): Chronic leg wounds-pt states they were healed up for about a year but began giving him trouble again about 7-10 days ago- has been seen in wound center by Dr. Martinez, chronic back pain, numbness down both buttocks into thighs, ischemic cardiomyopathy. Last Myocardial Infarction Date:: 1989 History of Any Multi-Drug Resistant Organisms: MRSA Date of last positivie culture/infection: 03/10/17 MDRO Source:: right leg Past Surgical History: AICD, Back Surgery, Bowel Resection, Coronary Bypass/CABG , Heart Catheterization, Hernia Repair, Pacemaker, Tonsillectomy Additional Past Surgical History / Comment(s): small bowel resection d/t blockage, yessy inguinal hernia repair, 5 vessel CABG in 1989 at [facility], back surgery x3. Past Anesthesia/Blood Transfusion Reactions: No Reported Reaction Type of Cardiac Device: AICD Device Placement Date:: May 19, 2015 Past Psychological History: No Psychological Hx Reported Additional Psychological History / Comment(s): . Normally, lives in the family home with his . His is currently at [facility] for rehab after hip surgery. He has been using a wheeled walker. He has not been driving lately. His family takes his to [employer]. He is a lifelong nonsmoker. 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 He has no experience. He has no international travel. There are no pet exposures in the home. He has a total of 12 children, and they apparently have good health. Smoking Status: Never smoker Past Alcohol Use History: None Reported Past Drug Use History: None Reported - Past Family History Father Family Medical History: Coronary Artery Disease (CAD) Additional Family Medical History / Comment(s): of heart attack age 86 Mother Additional Family Medical History / Comment(s): age 77 of stroke or heart attack General Exam - General Exam Comments Initial Comments: GENERAL: Patient is well-developed and well-nourished. Patient is nontoxic and well- hydrated and is in mild distress. ENT: Neck is soft and supple. No significant lymphadenopathy is noted. Oropharynx is clear. Moist mucous membranes. Neck has full range of motion without eliciting any pain. EYES: The sclera were anicteric and conjunctiva were pink and moist. Extraocular movements were intact and pupils were equal round and reactive to light. Eyelids were unremarkable. PULMONARY: Patient has crackles in the left base. CARDIOVASCULAR: There is a regular rate and rhythm without any murmurs gallops or rubs. ABDOMEN: Soft and nontender with normal bowel sounds. No palpable organomegaly was noted. There is no palpable pulsatile mass. SKIN: Skin is clear with no lesions or rashes and otherwise unremarkable. NEUROLOGIC: Patient is alert and oriented 2. Cranial nerves II through XII are grossly intact. Motor and sensory are also intact. Normal speech, volume and content. Symmetrical smile. MUSCULOSKELETAL: There is a small one half centimeter in diameter lesion on the left bishop there is no signs of infection on either leg. Legs are very sensitive to touch. LYMPHATICS: No significant lymphadenopathy is noted PSYCHIATRIC: Normal psychiatric evaluation. Course Vital Signs 04/15/17 04/15/17 00:12 02:28 Temperature 99.0 F Pulse Rate 74 61 Respiratory 20 20 Rate Blood Pressure 137/69 146/87 O2 Sat by Pulse 93 L 93 L Oximetry Medical Decision Making - Medical Decision Making EKG shows a ventricular paced rhythm at a rate of 73 bpm with occasional PVCs QRS is under 94 QT interval is 536 QTC is 590. Patient's chest x-ray shows mild pulmonary edema with infiltrates in the left lung base - Lab Data Result diagrams: 04/15/17 00:40 04/15/17 00:40 Lab Results 04/15/17 04/15/17 04/15/17 Range/Units 00:40 00:40 00:40 WBC 16.3 H (3.8-10.6) k/uL RBC 4.85 (4.30-5.90) m/uL Hgb 13.1 (13.0-17.5) gm/dL Hct 41.0 (39.0-53.0) % MCV 84.4 (80.0-100.0) fL MCH 27.0 (25.0-35.0) pg MCHC 32.0 (31.0-37.0) g/dL RDW 16.4 H (11.5-15.5) % Plt Count 163 (150-450) k/uL Neutrophils % 87 % Lymphocytes % 8 % Monocytes % 3 % Eosinophils % 0 % Basophils % 0 % Neutrophils # 14.3 H (1.3-7.7) k/uL Lymphocytes # 1.3 (1.0-4.8) k/uL Monocytes # 0.5 (0-1.0) k/uL Eosinophils # 0.0 (0-0.7) k/uL Basophils # 0.0 (0-0.2) k/uL Hypochromasia Slight Anisocytosis Slight PT (9.0-12.0) sec INR (<1.1) APTT (22.0-30.0) sec Sodium 140 (137-145) mmol/L Potassium 4.6 (3.5-5.1) mmol/L Chloride 106 (98-107) mmol/L Carbon Dioxide 24 (22-30) mmol/L Anion Gap 10 mmol/L BUN 31 H (9-20) mg/dL Creatinine 0.80 (0.66-1.25) mg/dL Est GFR (MDRD) Af Amer >60 (>60 ml/min/1.73 sqM) Est GFR (MDRD) Non-Af >60 (>60 ml/min/1.73 sqM) Glucose 133 H (74-99) mg/dL Plasma Lactic Acid Daniel 1.3 (0.7-2.0) mmol/L Calcium 9.5 (8.4-10.2) mg/dL Total Bilirubin 1.5 H (0.2-1.3) mg/dL AST 37 (17-59) U/L ALT 46 (21-72) U/L Alkaline Phosphatase 137 H (38-126) U/L NT-Pro-B Natriuret Pep pg/mL Total Protein 6.5 (6.3-8.2) g/dL Albumin 3.6 (3.5-5.0) g/dL Urine Color Urine Appearance (Clear) Urine pH (5.0-8.0) Ur Specific [place] (1.001-1.035) Urine Protein (Negative) Urine Glucose (UA) (Negative) Urine Ketones (Negative) Urine Blood (Negative) Urine Nitrite (Negative) Urine Bilirubin (Negative) Urine Urobilinogen (<2.0) mg/dL Ur Leukocyte Esterase (Negative) Amorphous Sediment (None) /hpf 04/15/17 04/15/17 04/15/17 Range/Units 00:40 00:57 03:38 WBC (3.8-10.6) k/uL RBC (4.30-5.90) m/uL Hgb (13.0-17.5) gm/dL Hct (39.0-53.0) % MCV (80.0-100.0) fL MCH (25.0-35.0) pg MCHC (31.0-37.0) g/dL RDW (11.5-15.5) % Plt Count (150-450) k/uL Neutrophils % % Lymphocytes % % Monocytes % % Eosinophils % % Basophils % % Neutrophils # (1.3-7.7) k/uL Lymphocytes # (1.0-4.8) k/uL Monocytes # (0-1.0) k/uL Eosinophils # (0-0.7) k/uL Basophils # (0-0.2) k/uL Hypochromasia Anisocytosis PT 11.9 (9.0-12.0) sec INR 1.2 (<1.1) APTT 25.0 (22.0-30.0) sec Sodium (137-145) mmol/L Potassium (3.5-5.1) mmol/L Chloride (98-107) mmol/L Carbon Dioxide (22-30) mmol/L Anion Gap mmol/L BUN (9-20) mg/dL Creatinine (0.66-1.25) mg/dL Est GFR (MDRD) Af Amer (>60 ml/min/1.73 sqM) Est GFR (MDRD) Non-Af (>60 ml/min/1.73 sqM) Glucose (74-99) mg/dL Plasma Lactic Acid Daniel (0.7-2.0) mmol/L Calcium (8.4-10.2) mg/dL Total Bilirubin (0.2-1.3) mg/dL AST (17-59) U/L ALT (21-72) U/L Alkaline Phosphatase (38-126) U/L NT-Pro-B Natriuret Pep 6000 pg/mL Total Protein (6.3-8.2) g/dL Albumin (3.5-5.0) g/dL Urine Color Yellow Urine Appearance Clear (Clear) Urine pH 5.5 (5.0-8.0) Ur Specific [place] 1.017 (1.001-1.035) Urine Protein 1+ H (Negative) Urine Glucose (UA) Negative (Negative) Urine Ketones Negative (Negative) Urine Blood Negative (Negative) Urine Nitrite Negative (Negative) Urine Bilirubin Negative (Negative) Urine Urobilinogen 3.0 (<2.0) mg/dL Ur Leukocyte Esterase Negative (Negative) Amorphous Sediment Rare H (None) /hpf Disposition Clinical Impression: Pulmonary edema, Pneumonia Disposition: ADMITTED IP TO THIS HOSP Referrals: Hunter Aquino MD [Primary Care Provider] - 1-2 days Time of Disposition: 04:26
[2017-04-15] MEDS: SODIUM CHLORIDE 0.9% 500 ML IV SCH ×2 (00:51→01:41)
[2017-04-15 01:06] LABS: Anisocytosis Slight; Basophils % (A) 0 %; CH 26.6; CHCM 31.6; Eosinophils % (A) 0 %; HDW 2.64; HGB 13.1 gm/dL (13.0-17.5); Hypochromasia Slight; Luc # (Auto) 0.27; Luc % (Auto) 2; Lymphocytes # (A) 1.3 k/uL (1.0-4.8); Lymphocytes % (A) 8 %; MCV 84.4 fL (80.0-100.0); Mean Platelet Volume 7.2; Monocytes # (A) 0.5 k/uL (0-1.0); Monocytes % (A) 3 %; Neutrophils # (A) 14.3 k/uL (1.3-7.7); Neutrophils % (A) 87 %; RBC 4.85 m/uL (4.30-5.90); RDW 16.4 % (11.5-15.5); WBC 16.3 k/uL (3.8-10.6); WBC (Perox) 16.81
[2017-04-15 01:16] LABS: INR 1.2 (<1.1); Prothrombin Time 11.9 sec (9.0-12.0)
[2017-04-15 01:17] LABS: ALT 46 U/L (21-72); AST 37 U/L (17-59); Alkaline Phosphatase 137 U/L (38-126); Anion Gap 10 mmol/L; Blood Urea Nitrogen 31 mg/dL (9-20); Calcium 9.5 mg/dL (8.4-10.2); Carbon Dioxide 24 mmol/L (22-30); Chloride 106 mmol/L (98-107); Glucose 133 mg/dL (74-99); Non-African American GFR(MDRD) >60 (>60 ml/min/1.73 sqM); Potassium 4.6 mmol/L (3.5-5.1); Sodium 140 mmol/L (137-145); Total Bilirubin 1.5 mg/dL (0.2-1.3); Total Protein 6.5 g/dL (6.3-8.2)
--- NOTE | 2017-04-15 02:44 | XR ---
EXAM: XR Chest, 2 Views CLINICAL HISTORY: Hx. of afib. Heart failure, CAD. Htn. Pt. has weakness and fever. Pacemaker TECHNIQUE: Frontal and lateral views of the chest. COMPARISON: Chest x-ray 03/11/17 FINDINGS: Lungs: Bibasilar lung atelectasis/airspace disease. Mild vascular interstitial prominence. Pleural space: Trace bilateral pleural effusions. No pneumothorax. Calcified pleural plaque. Heart: Cardiomegaly. Mediastinum: Unremarkable. Bones/joints: Median sternotomy. Tubes, lines and devices: Pacemaker. IMPRESSION: 1. Stable cardiomegaly. Median sternotomy. 2. Mild vascular and interstitial prominence with tiny pleural effusions. Findings likely CHF, cannot exclude superimposed infection.
[2017-04-15 04:12] LABS: Amorphous Sediment,Urine Rare /hpf; Appearance,Urine Clear (Clear); Bilirubin,Urine Negative (Negative); Glucose,Urine (UA) Negative (Negative); Ketones,Urine Negative (Negative); Leukocyte Esterase,Urine Negative (Negative); Nitrite,Urine Negative (Negative); PH, Urine 5.5 (5.0-8.0); Particle Count 2322; Protein,Urine 1+ (Negative); Specific Gravity,Urine 1.017 (1.001-1.035); UA Billing (MACRO vs. MICRO) MICRO
[2017-04-15] MEDS ORDERED: FUROSEMIDE 10 MG/ML 4 ML VIAL IV STA (04:25)
[2017-04-15] MEDS ORDERED: LEVOFLOXACIN 750MG-D5W PMX 750 MG in DEXTROSE/WATER 1 150ML.BAG IVPB STA (04:25)
[2017-04-15] MEDS ORDERED: PNEUMONIA PROTOCOL UTILIZED 1 EACH MISC PO PRN (04:26)
[2017-04-15] MEDS ORDERED: HYDROcodone/APAP 5-325MG 1 EACH TAB PO STA (05:51)
[2017-04-15] MEDS: IPRATROPIUM-ALBUTEROL 3 ML NEB INHALATION SCH ×4 (07:47→18:46)
[2017-04-15] MEDS ORDERED: FUROSEMIDE 10 MG/ML 2 ML VIAL IV SCH (09:00)
[2017-04-15 10:06] VITALS: BMI 20.7
[2017-04-15] MEDS ORDERED: ACETAMINOPHEN TAB 325 MG TAB PO PRN (13:38)
--- NOTE | 2017-04-15 14:51 | P.HPIM ---
History of Present Illness H&P Date: 04/15/17 Chief Complaint: Shortness of breath bilateral lower leg pain 86-year-old male who was admitted on the day of admission to the emergency room via the EMS system in which the family activated when patient was reportedly experiencing intractable severe bilateral lower extremity pain. Patient has poor past medical recall is a poor historian. Very hard of hearing Apparently the patient was just discharged from an ECF facility [facility] on March 16. At that time the patient was experiencing bilateral lower extremity edema which was suspected due to arteriovenous insufficiency involving the lower extremities with cellulitis. No family at the bedside. Patient states that the pain after being discharged from the ECF facility was unbearable could not tolerate having the legs touched. Patient has a class V healing ulcer no necrotic tissue noted on the right dorsum foot and a class V healing ulcer due to peripheral vascular disease involving the right lower extremity anterior. These were present on the last admission March 16. Patient states her legs are so tender and painful he cannot tolerate them. Additionally patient states that he has been feeling short of breath. But the legs have not been swollen. Patient does have a history of peripheral vascular disease peripheral vascular occlusive disease reviewing the computerized medical record patient has been seen in the past by Dr. Martinez has been diagnosed with venous insufficiency with venous ulcers. Patient had been coming to the wound clinic for ulcer in the left lower extremity in the right lower extremity. Patient was last seen in the wound center on April [address] Martinez Nursing reports patient did have an episode of questionable hemoptysis cough. A small amount of bloody secretions did note the BNP is elevated to 6000 patient states he's been feeling short of breath Review of Systems Unable to adequately obtain patient has no real recall Past Medical History Past Medical History: Atrial Fibrillation, Coronary Artery Disease (CAD), Chest Pain / Angina, Heart Failure, Hyperlipidemia, Hypertension, Myocardial Infarction ([place]), Osteoarthritis (OA), Pneumonia, Rheumatoid Arthritis (RA), Skin Disorder, Vascular Disorder Additional Past Medical History / Comment(s): Chronic leg wounds-pt states they were healed up for about a year but began giving him trouble again about 7-10 days ago- has been seen in wound center by Dr. Martinez, chronic back pain, numbness down both buttocks into thighs, ischemic cardiomyopathy. Last Myocardial Infarction Date:: 1989 History of Any Multi-Drug Resistant Organisms: MRSA Date of last positivie culture/infection: 03/10/17 MDRO Source:: right leg Past Surgical History: AICD, Back Surgery, Bowel Resection, Coronary Bypass/CABG , Heart Catheterization, Hernia Repair, Pacemaker, Tonsillectomy Additional Past Surgical History / Comment(s): small bowel resection d/t blockage, yessy inguinal hernia repair, 5 vessel CABG in 1989 at [facility], back surgery x3. Past Anesthesia/Blood Transfusion Reactions: No Reported Reaction Type of Cardiac Device: AICD Device Placement Date:: May 19, 2015 Past Psychological History: No Psychological Hx Reported Additional Psychological History / Comment(s): . Normally, lives in the family home with his . His is currently at [facility] for rehab after hip surgery. He has been using a wheeled walker. He has not been driving lately. His family takes his to [employer]. He is a lifelong nonsmoker. 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 He has no experience. He has no international travel. There are no pet exposures in the home. He has a total of 12 children, and they apparently have good health. Smoking Status: Never smoker Past Alcohol Use History: None Reported Past Drug Use History: None Reported - Past Family History Father Family Medical History: Coronary Artery Disease (CAD) Additional Family Medical History / Comment(s): of heart attack age 86 Mother Additional Family Medical History / Comment(s): age 77 of stroke or heart attack Medications and Allergies Home Medications Medication Instructions Recorded Confirmed Type Losartan [Cozaar] 50 mg PO BID 05/21/15 04/15/17 History Allergies Allergy/AdvReac Type Severity Reaction Status Date / Time No Known Allergies Allergy Verified 04/11/17 14:59 Physical Exam Vitals: Vital Signs Temp Pulse Pulse Resp BP BP Pulse Ox 04/15/17 07:55 53 L 04/15/17 07:48 53 L 98 04/15/17 07:42 97.4 F L 53 L 17 139/75 98 04/15/17 06:27 97 F L 47 L 16 124/77 99 04/15/17 04:44 97.0 F L 61 20 137/65 98 04/15/17 02:28 61 20 146/87 93 L 04/15/17 00:12 99.0 F 74 20 137/69 93 L Intake and Output 04/14/17 04/15/17 04/15/17 22:59 06:59 14:59 Intake Total 1100 Balance 1100 Intake: Amount of Fluid Infused ( 1100 ml) Other: Weight 67.132 kg 65.5 kg Patient Weight 04/16/17 06:59 Weight 65.5 kg GENERAL APPEARANCE: 86-year-old male very hard of hearing patient is alert, oriented to self and place, in no acute distress. States cannot stand the pain in the bilateral lower legs VITAL SIGNS: Reviewed HEENT: Head is normocephalic and atraumatic. Pupils are equal and reactive. The nares are patent. Oropharynx is clear without lesions. NECK: Supple without lymphadenopathy. Traches midline. HEART: S1, S2. Irregular LUNGS: Dry crackles at the bases no wheezes are heard. ABDOMEN: Soft, nontender, nondistended with good bowel sounds. No peritoneal signs. No palpable organomegaly or masses. EXTREMITIES: Ulcer left lower extremity and the right lower extremity present. The left lower extremity ulcer is 6.5 the right lower extremity ulcer. Healed Radial pedal pulses are 2/4 bilaterally. Bilateral lower extremities cool to the touch patient states it's painful no edema noted not able to palpate a pulse NEUROLOGICAL: No focal deficits. Strength and sensation are grossly intact. Results CBC & Chem 7: 04/15/17 00:40 04/15/17 00:40 Labs: Abnormal Lab Results - Last 24 Hours (Table) 04/15/17 04/15/17 04/15/17 Range/Units 00:40 00:40 03:38 WBC 16.3 H (3.8-10.6) k/uL RDW 16.4 H (11.5-15.5) % Neutrophils # 14.3 H (1.3-7.7) k/uL BUN 31 H (9-20) mg/dL Glucose 133 H (74-99) mg/dL Total Bilirubin 1.5 H (0.2-1.3) mg/dL Alkaline Phosphatase 137 H (38-126) U/L Urine Protein 1+ H (Negative) Amorphous Sediment Rare H (None) /hpf Microbiology - Last 24 Hours (Table) 04/15/17 03:38 Urine Culture - Preliminary Urine,Catheterized Thrombosis Risk Factor Assmnt - Choose All That Apply Any of the Below Risk Factors Present?: No Other Risk Factors: Yes Each Risk Factor Represents 3 Points: Age 75 years or older Other congenital or acquired thrombophilia - If yes, enter type in comment: No Thrombosis Risk Factor Assessment Total Risk Factor Score: 3 Thrombosis Risk Factor Assessment Level: Moderate Risk Assessment and Plan Plan: Impression Present on admission bilateral venous ulcers lower extremity being followed by the wound care center Intractable bilateral lower extremity pain Present on admission shortness of breath suspect due to an acute exacerbation of systolic congestive heart failure elevated BNP decompensated Chronic debility due to comorbidities A recent admission to an F facility for rehab Paroxysmal atrial fibrillation Known coronary artery disease with a history of coronary artery bypass grafting 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 Present on admission left pretibial area ulcer 8 x 2 open no drainage Present on admission right lower pretibial area ulcer 3 x 1 open drainage Hypertension Hyperlipidemia Severe peripheral vascular occlusive disease present on admission leukocytosis suspect reactive Chest x-ray suggest tiny pleural effusions cannot exclude superimposed infection pneumonia not ruled out History of a permanent pacemaker Plan Resume home meds as appropriate Resume diet DVT and GI prophylaxis Consult cardiology Follow up on the echocardiogram pending Pulmonary consultation nursing reports patient had an episode of questionable hemoptysis Consult Dr. Martinez for wound care followed at the wound care center Pain control Further recommendations pending will follow The above dictated assessment and findings were discussed with dr tess Dan and the plan of care have been dictated as directed. Cassandra Moon nurse practitioner acting as a scribe for dr pulido
[2017-04-15] MEDS ORDERED: IPRATROPIUM-ALBUTEROL 3 ML NEB INHALATION SCH (16:00)
--- NOTE | 2017-04-15 16:21 | US ---
EXAMINATION TYPE: US venous doppler duplex LE BI DATE OF EXAM: 04/15/2017 4:05 PM COMPARISON: 02/07/2015 bilateral lower extremity venous ultrasound February 07, 2015 CLINICAL HISTORY: Painful bilateral lower extremities rule out DVT. SIDE PERFORMED: Bilateral TECHNIQUE: The lower extremity deep venous system is examined utilizing real time linear array sonog yoana with graded compression, doppler sonography and color-flow sonography. VESSELS IMAGED: External Iliac Vein (EIV) Common Femoral Vein Deep Femoral Vein Greater Saphenous Vein * Femoral Vein Popliteal Vein Small Saphenous Vein * Proximal Calf Veins (* superficial vessels) Right Leg: Negative for DVT Left Leg: Negative for DVT Grayscale, color doppler, spectral doppler imaging performed of the deep veins of the lower extremiti es. There is normal flow, compressibility, vascular waveforms bilaterally. IMPRESSION: No ultrasound evidence for acute DVT in either lower extremity.
--- NOTE | 2017-04-15 17:01 | HP ---
DATE OF ADMISSION: 04/15/2017 CHIEF COMPLAINT: Shortness of breath, congestive heart failure, pulmonary edema, pneumonitis and hemoptysis. HISTORY OF PRESENT ILLNESS: This is another recent admission for this gentleman who was in the hospital recently and treated for secondarily infected venous stasis ulcers lower extremities. The ulcers were chronic. He was sent home to a assisted ([facility]) and was recently sent home. Clearly he and his could not manage things at home. In addition to that, they are not congenial. Apparently, started having more and more difficulty with breathing and was brought to the hospital and admitted to another physician. REVIEW OF SYSTEMS: The patient is complaining of shortness of breath, but no chest pain, abdominal pain, chills, fever, etc. Past medical history, family history and personal histories and social history otherwise unobtainable and considered unchanged. He does have congestive heart failure. It is not known if he has been taking his medications. PHYSICAL EXAMINATION: VITAL SIGNS: Blood pressure is 142/68 with a pulse of 95, respirations of 45 and he is afebrile. GENERAL: Appeared to be short of breath. He was chronically ill in appearance. HEENT: Head, ears, eyes, nose, mouth, and throat were normal. NECK: Neck veins were slightly distended. CHEST: Chest demonstrated decreased breath sounds with rales throughout. Cardiac exam demonstrated what sounded like sinus tachycardia. ABDOMEN: Soft, nontender, without any masses. EXTREMITIES: Demonstrated stasis ulcers. There was no necrosis. Neurologically he is intact. IMPRESSION: 1. Acute congestive heart failure. 2. Pneumonitis. 3. Venous stasis disease lower extremities with ulcers. PLAN: 1. Bed rest. 2. IV fluids. 3. Treat congestive heart failure. 4. Discharge planning.
[2017-04-15] MEDS: HYDROcodone/APAP 5-325MG 1 EACH TAB PO PRN ×2 (17:04→20:10)
[2017-04-15] MEDS: HEPARIN SODIUM,PORCINE 5,000 UNIT/ML 1 ML VIAL SQ SCH (17:07)
[2017-04-15] MEDS: PANTOPRAZOLE 40 MG/10 ML VIAL IVP SCH (17:08)
--- NOTE | 2017-04-15 17:13 | CONS ---
DATE OF CONSULTATION: This is an 86-year-old gentleman who is known from the wound clinic who has been admitted to the hospital with history of pneumonia, congestive heart failure. Patient has been coming to the wound clinic. He has a wound on the left lower extremity which has been treated with local wound care. PAST MEDICAL HISTORY: The patient had a CABG done in the past. On examination, his neck is supple. No bruit appreciated. CHEST: A few crackles at lung bases. ABDOMEN: Soft, nontender. VASCULAR EXAMINATION: Brachial and femoral pulses are palpable. Posterior tibial and dorsalis not palpable. Patient has wound on the left lower extremity. The base of the wound is clean. No discharge or redness noted. Patient has some brown induration of both lower extremities. PLAN: We will use [facility] for the wound on a daily basis and patient will be followed up in the wound clinic.
[2017-04-15] MEDS: FAMOTIDINE 20 MG TAB PO SCH (22:11)
[2017-04-15] MEDS: FUROSEMIDE 10 MG/ML 2 ML VIAL IV SCH (22:12)
[2017-04-15] MEDS: NYSTATIN 100,000 UNIT/GM POWD 15 GM TOPICAL SCH (22:12)
[2017-04-15] MEDS: ATORVASTATIN 40 MG TAB PO SCH (22:56)
[2017-04-15] MEDS: LOSARTAN 50 MG TAB PO SCH (22:56)
[2017-04-16] MEDS: HEPARIN SODIUM,PORCINE 5,000 UNIT/ML 1 ML VIAL SQ SCH ×3 (01:22→15:39)
[2017-04-16] MEDS: HYDROcodone/APAP 5-325MG 1 EACH TAB PO PRN ×4 (02:23→20:38)
--- NOTE | 2017-04-16 07:27 | XR ---
EXAMINATION TYPE: XR chest 2V DATE OF EXAM: 04/16/2017 COMPARISON: Chest x-ray from yesterday and older x-rays. CT chest March 03, 2016. HISTORY: Pneumonia progress study. TECHNIQUE: Frontal and lateral views of the chest are obtained. FINDINGS: Sternal wires and mediastinal clips are redemonstrated. There is persistent cardiomegaly wi th single lead pacemaker/AICD and atherosclerotic thoracic aorta. Calcified pleural plaques bilateral ly are suspected. There is chronic parenchymal change with persistent patchy right basilar opacity. N o large pleural effusion or pneumothorax is seen bilaterally. High riding right humeral head suggests chronic rotator cuff tear. IMPRESSION: Cardiomegaly and chronic interstitial fibrosis with acute bibasilar infiltrate and/or a telectasis felt present. Calcified pleural plaques noted.
--- NOTE | 2017-04-16 07:31 | ECHOF ---
Referral Reason:Edema bilateral lower extremities MEASUREMENTS -------- HEIGHT: 177.8 cm WEIGHT: 65.3 kg BP: 139/75 IVSd: 0.9 cm (0.6 - 1.1) LVIDd: 4.8 cm (3.9 - 5.3) LVPWd: 1.0 cm (0.6 - 1.1) IVSs: 1.3 cm LVIDs: 4.4 cm LVPWs: 1.1 cm Ao Diam: 3.0 cm (2.0 - 3.7) AV Cusp: 1.6 cm (1.5 - 2.6) LA Diam: 3.5 cm (2.7 - 3.8) MV EXCURSION: 19.436 mm (> 18.000) MV EF SLOPE: 170 mm/s (70 - 150) EPSS: 2.9 cm MV E Javan: 0.80 m/s MV DecT: 342 ms MV A Javan: 0.26 m/s MV E/A Ratio: 3.08 AR PHT: 195 ms RAP: 5.00 mmHg RVSP: 31.22 mmHg FINDINGS -------- Pacerwire seen in RV and RA. AICD This was a technically good study. Left ventricular wall thickness is normal. There is moderate global hypokinesis of LV . Overall left ventricular systolic function is severely impaired with, an EF < 20%. MECHANICAL DYSSYNERGY NOTED The right ventricle is normal in size and function. The left atrium is normal in size. The right atrium is normal in size. Aortic valve is trileaflet and is mildly thickened. The mitral valve leaflets are mildly thickened. Mild mitral regurgitation is present. Mild tricuspid regurgitation present. The right ventricular systolic pressure, as measured by Doppler, is 31.22mmHg. Pulmonic valve appears structurally normal. The aortic root size is normal. The pericardium is normal. CONCLUSIONS -------- 1. Pacerwire seen in RV and RA. 2. The mitral valve leaflets are mildly thickened. 3. Mild mitral regurgitation is present. 4. Mild tricuspid regurgitation present. 5. The right ventricular systolic pressure, as measured by Doppler, is 31.22mmHg. 6. Pulmonic valve appears structurally normal. 7. The aortic root size is normal. 8. The pericardium is normal. 9. AICD 10. This was a technically good study. 11. Left ventricular wall thickness is normal. 12. There is moderate global hypokinesis of LV . 13. The right ventricle is normal in size and function. 14. The left atrium is normal in size. 15. The right atrium is normal in size. 16. Aortic valve is trileaflet and is mildly thickened. [employer] TECHNICIAN: Daysi Savage RDCS
[2017-04-16] MEDS: LEVOFLOXACIN 750MG-D5W PMX 750 MG in DEXTROSE/WATER 1 150ML.BAG IVPB SCH ×2 (07:46→07:58)
[2017-04-16] MEDS: LOSARTAN 50 MG TAB PO SCH (07:54)
[2017-04-16] MEDS: SPIRONOLACTONE 25 MG TAB PO SCH (07:54)
[2017-04-16] MEDS: FAMOTIDINE 20 MG TAB PO SCH ×2 (07:54→21:52)
[2017-04-16] MEDS: ASPIRIN 81 MG CHEW PO SCH (07:54)
[2017-04-16] MEDS: PANTOPRAZOLE 40 MG/10 ML VIAL IVP SCH (07:55)
[2017-04-16] MEDS: FUROSEMIDE 10 MG/ML 2 ML VIAL IV SCH (07:55)
[2017-04-16] MEDS: COLLAGENASE 250 UNIT/GM OINTMENT 30 GM TUBE TOPICAL SCH (08:19)
[2017-04-16 09:25] LABS: Anisocytosis Slight; Basophils # (A) 0.1 k/uL (0-0.2); Basophils % (A) 1 %; CH 26.2; CHCM 30.6; Eosinophils # (A) 0.1 k/uL (0-0.7); Eosinophils % (A) 1 %; HDW 2.62; HGB 13.6 gm/dL (13.0-17.5); Hypochromasia Moderate; Luc # (Auto) 0.34; Luc % (Auto) 3; Lymphocytes # (A) 1.6 k/uL (1.0-4.8); Lymphocytes % (A) 14 %; MCH 27.1 pg (25.0-35.0); MCHC 31.6 g/dL (31.0-37.0); MCV 85.8 fL (80.0-100.0); Mean Platelet Volume 7.2; Monocytes # (A) 0.6 k/uL (0-1.0); Monocytes % (A) 5 %; Neutrophils # (A) 9.1 k/uL (1.3-7.7); Neutrophils % (A) 77 %; RBC 5.01 m/uL (4.30-5.90); RDW 16.4 % (11.5-15.5); WBC 11.8 k/uL (3.8-10.6); WBC (Perox) 11.21
[2017-04-16] MEDS: IPRATROPIUM-ALBUTEROL 3 ML NEB INHALATION SCH ×4 (09:27→19:16)
[2017-04-16 09:28] LABS: ALT 31 U/L (21-72); AST 32 U/L (17-59); Alkaline Phosphatase 120 U/L (38-126); Anion Gap 9 mmol/L; Blood Urea Nitrogen 32 mg/dL (9-20); Calcium 9.4 mg/dL (8.4-10.2); Carbon Dioxide 25 mmol/L (22-30); Chloride 106 mmol/L (98-107); Glucose 97 mg/dL (74-99); Non-African American GFR(MDRD) >60 (>60 ml/min/1.73 sqM); Potassium 4.2 mmol/L (3.5-5.1); Sodium 140 mmol/L (137-145); Total Bilirubin 1.6 mg/dL (0.2-1.3)
[2017-04-16] MEDS: NYSTATIN 100,000 UNIT/GM POWD 15 GM TOPICAL SCH ×2 (10:34→21:52)
--- NOTE | 2017-04-16 14:05 | P.CNPUL ---
History of Present Illness Consult date: 04/16/17 Reason for consult: dyspnea History of present illness: 86-year-old male patientWho was hospitalized because of pain in lower extremities. The patient has had chronic pain secondary to chronic vascular insufficiency. The patient has an arterial vascular venous insufficiency with open wounds and the patient is being followed up at the wound center. The patient typically sees Dr. Padilla. I was asked even with the patient's pulmonary status. A CAT scan of the chest was obtained which upon my review showed evidence of pleural calcification bilaterally suggestive of previous asbestos exposure. There is also evidence of interstitial lung disease with fibrotic changes lung bases bilaterally. The patient had some increased cough and chest congestion. Is known to have cardiomyopathy and ejection fraction of less than 20%. No significant cough or sputum production. No orthopnea. No fever chills or night sweats. He coughed some minimal mucus with blood tinged material. There was no cough and no blood clots or any other larger chunks to suggest any massive hemoptysis. No history of any DVT in lower extremities bilaterally. The patient himself denies any previous history of asbestos exposure. 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 Review of Systems All systems: negative Constitutional: Denies chills, Denies fever Eyes: denies blurred vision, denies pain Ears, nose, mouth and throat: Denies headache, Denies sore throat Cardiovascular: Denies chest pain, Denies shortness of breath Respiratory: Denies cough Gastrointestinal: Denies abdominal pain, Denies diarrhea, Denies nausea, Denies vomiting Musculoskeletal: Denies myalgias Integumentary: Denies pruritus, Denies rash Neurological: Denies numbness, Denies weakness Psychiatric: Denies anxiety, Denies depression Endocrine: Denies fatigue, Denies weight change Past Medical History Past Medical History: Atrial Fibrillation, Coronary Artery Disease (CAD), Chest Pain / Angina, Heart Failure, Hyperlipidemia, Hypertension, Myocardial Infarction ([place]), Osteoarthritis (OA), Pneumonia, Rheumatoid Arthritis (RA), Skin Disorder, Vascular Disorder Additional Past Medical History / Comment(s): Chronic leg wounds-pt states they were healed up for about a year but began giving him trouble again about 7-10 days ago- has been seen in wound center by Dr. Martinez, chronic back pain, numbness down both buttocks into thighs, ischemic cardiomyopathy with an ejection fraction of less than 20%, chronic atrial fibrillation, coronary artery disease, hypertension, hyperlipidemia, osteoarthritis, rheumatoid arthritis, peripheral vascular disease, chronic venous insufficiency involving lower extremities Last Myocardial Infarction Date:: 1989 History of Any Multi-Drug Resistant Organisms: MRSA Date of last positivie culture/infection: 03/10/17 MDRO Source:: right leg Past Surgical History: AICD, Back Surgery, Bowel Resection, Coronary Bypass/CABG , Heart Catheterization, Hernia Repair, Pacemaker, Tonsillectomy Additional Past Surgical History / Comment(s): small bowel resection for history of small bowel obstruction, yessy inguinal hernia repair, 5 vessel CABG in 1989 at [facility], back surgery x3, AICD placement, back surgery, previous history of bowel resection, tonsillectomy, hernia repair Past Anesthesia/Blood Transfusion Reactions: No Reported Reaction Type of Cardiac Device: AICD Device Placement Date:: May 19, 2015 Past Psychological History: No Psychological Hx Reported Additional Psychological History / Comment(s): . Normally, lives in the family home with his . His is currently at [facility] for rehab after hip surgery. He has been using a wheeled walker. He has not been driving lately. His family takes his to [employer]. He is a lifelong nonsmoker. 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 He has no experience. He has no international travel. There are no pet exposures in the home. He has a total of 12 children, and they apparently have good health. Smoking Status: Never smoker Past Alcohol Use History: None Reported Past Drug Use History: None Reported - Past Family History Father Family Medical History: Coronary Artery Disease (CAD) Additional Family Medical History / Comment(s): of heart attack age 86 Mother Additional Family Medical History / Comment(s): age 77 of stroke or heart attack Medications and Allergies Home Medications Medication Instructions Recorded Confirmed Type Losartan [Cozaar] 50 mg PO BID 05/21/15 04/15/17 History Allergies Allergy/AdvReac Type Severity Reaction Status Date / Time No Known Allergies Allergy Verified 04/11/17 14:59 Physical Exam Vitals: Vital Signs Temp Pulse Pulse Resp BP Pulse Ox 04/16/17 12:47 67 04/16/17 12:37 64 04/16/17 09:40 62 04/16/17 09:28 64 04/16/17 07:00 96.9 F L 66 16 150/81 94 L 04/15/17 23:00 97.1 F L 61 18 140/70 96 04/15/17 18:55 66 04/15/17 18:50 96.8 F L 86 20 116/58 04/15/17 18:49 60 04/15/17 15:27 96.8 F L 53 L 16 138/59 94 L Intake and Output 04/15/17 04/16/17 04/16/17 22:59 06:59 14:59 Intake Total 480 Output Total 400 Balance 480 -400 Intake: Oral 480 Output: Urine 400 Other: Voiding Method Toilet Urinal # Voids 2 5 Weight 64.5 kg 66 kg Head exam was generally normal. There was no scleral icterus or corneal arcus. Mucous membranes were moist.Neck was supple and without jugular venous distension, thyromegaly, or carotid bruits. Carotids were easily palpable bilaterally. There was no adenopathy. The patient has bilateral JVDs no goiter or neck masses. Lungs sounds are diminished in lung bases along with some coarse crackles. Heart sounds are irregular, possible sinus stool, no significant murmurs appreciated. Sternum stable clean and intact.Abdominal exam revealed normal bowel sounds. The abdomen was soft, non-tender, and without masses, organomegaly, or appreciable enlargement of the abdominal aorta.Examination of the extremities was not performed as the patient has appropriate dressing applied by the vascular surgeon. Results - Laboratory Findings CBC and BMP: 04/16/17 08:31 04/16/17 08:31 PT/INR, D-dimer PT 11.9 sec (9.0-12.0) 04/15/17 00:40 INR 1.2 (<1.1) 04/15/17 00:40 Abnormal lab findings: Abnormal Labs 04/15/17 04/15/17 04/15/17 00:40 00:40 03:38 WBC 16.3 H RDW 16.4 H Neutrophils # 14.3 H BUN 31 H Glucose 133 H Total Bilirubin 1.5 H Alkaline Phosphatase 137 H Urine Protein 1+ H Amorphous Sediment Rare H 04/16/17 04/16/17 08:31 08:31 WBC 11.8 H RDW 16.4 H Neutrophils # 9.1 H BUN 32 H Glucose Total Bilirubin 1.6 H Alkaline Phosphatase Urine Protein Amorphous Sediment - Diagnostic Findings Chest x-ray: image reviewed Assessment and Plan Plan: Assessment 1 Chronic dyspnea, multifactorial. The patient has an underlying pleural calcification and fibrosis and lung bases bilaterally which raises suspicion for previous asbestos exposure/asbestosis. Clinically however the patient denies any exposure to asbestos or any other occupation that would put him at a pneumoconiosis hazards. The findings however I suggested. In addition, shortness of breath attributed to his underlying cardiomyopathy and CHF 2 arterial vascular insufficiency with chronic ulceration lower oximetry is bilaterally 3 coronary artery disease with decreased bypass surgery 4 limited hemoptysis/blood-tinged mucus production which warranted no further investigation. Could be related to CHF with a component of mild bronchitis. Doubt pneumonia at this point 5 chronic atrial fibrillation 6 rheumatoid arthritis 7 hypertension 8 hyperlipidemia 9 osteoarthritis Plan CAT scan of the chest was reviewed and discussed with the patient. Optimize CHF with diuretics. Completed the course of antibiotics. No need for bronchoscopy. Suspect asbestosis. Vascular surgery to address lower extremity wounds. We'll follow.
[2017-04-16] MEDS: FUROSEMIDE 20 MG TAB PO SCH (15:39)
[2017-04-16] MEDS: CARVEDILOL 3.125 MG TAB PO SCH (17:23)
--- NOTE | 2017-04-16 18:44 | CONS ---
DATE OF CONSULTATION: 04/16/2017 This is an 86-year-old gentleman with ischemic cardiomyopathy, ejection fraction of less than 25%, who has an ICD and sees Dr. Titus in the outpatient setting. He also has a history of atrial fibrillation, which is his background rhythm. He has been having poorly healing wound on his leg and he came into the hospital with complaints of generalized weakness, lack of energy, discomfort in his legs. He denied any syncope, near syncope, palpitations or chest discomfort; however, he did have some shortness of breath. After arrival, he was found to have mild congestive heart failure on the chest x-ray and I was asked to see him with regard to his CAD and congestive heart failure. He is comfortable at the time of my evaluation. His ulcers on the leg are stable. He does not have any significant pain at this time. He had some shortness of breath earlier but he seems comfortable now. PAST MEDICAL HISTORY: 1. CAD with previous bypass surgery in the . 2. Chronic atrial fibrillation. 3. Ischemic cardiomyopathy with ICD. 4. Hypertension. 5. Hyperlipidemia. 6. Peripheral arterial disease, under the care of Dr. Martinez. ALLERGIES: No known drug allergies. MEDICATIONS AT HOME: 1. [place]. 2. Losartan 50 mg b.i.d. 3. Atorvastatin 10 mg daily. 4. Aspirin 81 mg daily. 5. Aldactone 25 mg daily. On examination, blood pressure is 140/80, pulse rate is about 60 per minute and regular. HEENT: Unremarkable. Fundus was not examined by me. NECK: Supple. There is JVD of 1 cm. No carotid bruit. HEART: S1, S2 with irregular rhythm. Short systolic murmur. LUNGS: Diminished air entry. ABDOMEN: Soft. LOWER EXTREMITIES: Wrapped in bandages. Pulses are diminished. CENTRAL NERVOUS SYSTEM: Grossly no focal deficits, but there is generalized weakness. EKG revealed underlying atrial fibrillation with some ventricular paced beats. LABORATORY DATA: Suggests a BNP of about 6000, which is elevated, but for this patient may be a chronic finding. Troponin levels are normal. Renal function is fairly well preserved. IMPRESSION: 1. Stable chronic systolic heart failure with some exacerbation. 2. Bilateral lower extremity ischemia with poorly healing wounds, under the care of vascular surgery. 3. Ischemic cardiomyopathy with prior NM. 4. Status post intraventricular cardioverter defibrillator. 5. History of prior aortocoronary bypass surgery. RECOMMENDATIONS: I am recommending that we switch him from IV to oral Lasix and switch the losartan to 100 mg in the morning, add Coreg 3.125 mg b.i.d. The patient appears to be stable from a cardiac standpoint. We will continue to see him as needed. Prognosis remains poor. Patient apparently is a significant fall risk and therefore is not on Coumadin. I was able to get this information after much discussion. Thank you very much for the consult.
[2017-04-16] MEDS: ATORVASTATIN 40 MG TAB PO SCH (21:52)
[2017-04-17] MEDS: HEPARIN SODIUM,PORCINE 5,000 UNIT/ML 1 ML VIAL SQ SCH ×4 (00:55→23:11)
[2017-04-17] MEDS: HYDROcodone/APAP 5-325MG 1 EACH TAB PO PRN ×4 (02:24→20:07)
[2017-04-17] MEDS: IPRATROPIUM-ALBUTEROL 3 ML NEB INHALATION SCH ×4 (07:43→20:11)
[2017-04-17] MEDS: ASPIRIN 81 MG CHEW PO SCH (08:38)
[2017-04-17] MEDS: LOSARTAN 50 MG TAB PO SCH (08:38)
[2017-04-17] MEDS: SPIRONOLACTONE 25 MG TAB PO SCH (08:38)
[2017-04-17] MEDS: PANTOPRAZOLE 40 MG/10 ML VIAL IVP SCH (08:39)
[2017-04-17] MEDS: FAMOTIDINE 20 MG TAB PO SCH ×2 (08:39→20:08)
[2017-04-17] MEDS: FUROSEMIDE 40 MG TAB PO SCH (08:39)
[2017-04-17] MEDS: CARVEDILOL 3.125 MG TAB PO SCH ×2 (08:42→16:48)
[2017-04-17 09:08] LABS: Anisocytosis Slight; Basophils # (A) 0.1 k/uL (0-0.2); Basophils % (A) 1 %; CH 26.3; CHCM 30.8; Eosinophils # (A) 0.1 k/uL (0-0.7); Eosinophils % (A) 1 %; HCT 42.4 % (39.0-53.0); HDW 2.61; HGB 13.3 gm/dL (13.0-17.5); Hypochromasia Moderate; Luc # (Auto) 0.28; Luc % (Auto) 3; Lymphocytes # (A) 1.5 k/uL (1.0-4.8); Lymphocytes % (A) 16 %; MCH 26.8 pg (25.0-35.0); MCHC 31.3 g/dL (31.0-37.0); MCV 85.7 fL (80.0-100.0); Mean Platelet Volume 7.3; Monocytes # (A) 0.5 k/uL (0-1.0); Monocytes % (A) 6 %; Neutrophils # (A) 6.7 k/uL (1.3-7.7); Neutrophils % (A) 73 %; RBC 4.95 m/uL (4.30-5.90); RDW 16.4 % (11.5-15.5); WBC 9.1 k/uL (3.8-10.6); WBC (Perox) 9.64
[2017-04-17 09:17] LABS: ALT 35 U/L (21-72); AST 28 U/L (17-59); Alkaline Phosphatase 102 U/L (38-126); Anion Gap 11 mmol/L; Blood Urea Nitrogen 27 mg/dL (9-20); Calcium 9.3 mg/dL (8.4-10.2); Carbon Dioxide 23 mmol/L (22-30); Chloride 106 mmol/L (98-107); Glucose 91 mg/dL (74-99); Non-African American GFR(MDRD) >60 (>60 ml/min/1.73 sqM); Potassium 4.4 mmol/L (3.5-5.1); Sodium 140 mmol/L (137-145); Total Bilirubin 1.4 mg/dL (0.2-1.3); Total Protein 6.6 g/dL (6.3-8.2)
[2017-04-17] MEDS: COLLAGENASE 250 UNIT/GM OINTMENT 30 GM TUBE TOPICAL SCH (09:57)
[2017-04-17] MEDS: NYSTATIN 100,000 UNIT/GM POWD 15 GM TOPICAL SCH ×2 (09:57→20:44)
--- NOTE | 2017-04-17 13:11 | P.PN ---
Subjective 86-year-old male patientWho was hospitalized because of pain in lower extremities. The patient has had chronic pain secondary to chronic vascular insufficiency. The patient has an arterial vascular venous insufficiency with open wounds and the patient is being followed up at the wound center. The patient typically sees Dr. Padilla. I was asked even with the patient's pulmonary status. A CAT scan of the chest was obtained which upon my review showed evidence of pleural calcification bilaterally suggestive of previous asbestos exposure. There is also evidence of interstitial lung disease with fibrotic changes lung bases bilaterally. The patient had some increased cough and chest congestion. Is known to have cardiomyopathy and ejection fraction of less than 20%. No significant cough or sputum production. No orthopnea. No fever chills or night sweats. He coughed some minimal mucus with blood tinged material. There was no cough and no blood clots or any other larger chunks to suggest any massive hemoptysis. No history of any DVT in lower extremities bilaterally. The patient himself denies any previous history of asbestos exposure. 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 On 04/17/2017 the patient doing well. Still coughing some yellowish sputum. No respiratory distress. Lower extremities remains sore. No change in mental status. Resting comfortably in bed. Objective - Vital Signs Vital signs: Vital Signs Temp 96.3 F L 04/17/17 07:00 Pulse 66 04/17/17 07:52 Resp 16 04/17/17 07:00 BP 142/83 04/17/17 07:00 Pulse Ox 92 L 04/17/17 07:00 Intake & Output 04/16/17 04/17/17 04/17/17 18:59 06:59 18:59 Intake Total 60 Output Total 800 150 Balance -800 -90 Weight 80.5 kg Intake: Oral 60 Output: Urine 800 150 Other: Voiding Method Toilet Toilet Urinal Urinal # Voids 2 # Bowel Movements 2 - Exam Head exam was generally normal. There was no scleral icterus or corneal arcus. Mucous membranes were moist.Neck was supple and without jugular venous distension, thyromegaly, or carotid bruits. Carotids were easily palpable bilaterally. There was no adenopathy. The patient has bilateral JVDs no goiter or neck masses. Lungs sounds are diminished in lung bases along with some coarse crackles. Heart sounds are irregular, possible sinus stool, no significant murmurs appreciated. Sternum stable clean and intact.Abdominal exam revealed normal bowel sounds. The abdomen was soft, non-tender, and without masses, organomegaly, or appreciable enlargement of the abdominal aorta.Examination of the extremities was not performed as the patient has appropriate dressing applied by the vascular surgeon. - Labs CBC & Chem 7: 04/17/17 07:58 04/17/17 07:58 Labs: Abnormal Lab Results - Last 24 Hours (Table) 04/17/17 04/17/17 Range/Units 07:58 07:58 RDW 16.4 H (11.5-15.5) % Plt Count 138 L (150-450) k/uL BUN 27 H (9-20) mg/dL Total Bilirubin 1.4 H (0.2-1.3) mg/dL Albumin 3.4 L (3.5-5.0) g/dL Microbiology - Last 24 Hours (Table) 04/15/17 00:40 Blood Culture - Preliminary Blood No Growth after 48 hours 04/15/17 03:38 Urine Culture - Final Urine,Catheterized Assessment and Plan Plan: Assessment 1 Chronic dyspnea, multifactorial. The patient has an underlying pleural calcification and fibrosis and lung bases bilaterally which raises suspicion for previous asbestos exposure/asbestosis. Clinically however the patient denies any exposure to asbestos or any other occupation that would put him at a pneumoconiosis hazards. The findings however I suggested. In addition, shortness of breath attributed to his underlying cardiomyopathy and CHF 2 arterial vascular insufficiency with chronic ulceration lower extremities bilaterally 3 coronary artery disease with decreased bypass surgery 4 limited hemoptysis/blood-tinged mucus production which warranted no further investigation. Could be related to CHF with a component of mild bronchitis. Doubt pneumonia at this point 5 chronic atrial fibrillation 6 rheumatoid arthritis 7 hypertension 8 hyperlipidemia 9 osteoarthritis Plan The patient is on oral Lasix. The patient on Levaquin. Obtain a sputum Gram stain and culture. Modify antibiotics accordingly. No need for bronchoscopy. CAT scan of the chest reviewed.
--- NOTE | 2017-04-17 13:29 | PN ---
DATE OF SERVICE: CHIEF COMPLAINT: Shortness of breath, cough, congestive heart failure. HISTORY OF PRESENT ILLNESS: This gentleman is doing well. He is awake, alert, and oriented. He is not particularly short of breath. He denies chest pain or fever. PHYSICAL EXAMINATION: Vital signs are normal. Chest is clear. There are very few rales. No rhonchi. CARDIAC: Demonstrates tachycardia. ABDOMEN: Soft, nontender. EXTREMITIES: Wrapped. IMPRESSION: 1. Congestive heart failure. 2. Pneumonitis. 3. Stasis dermatitis and cellulitis of the legs. PLAN: Continue current program. [place] initiate to set up reasonable discharge plan. He cannot be managed at home.
[2017-04-17] MEDS: FUROSEMIDE 20 MG TAB PO SCH (16:49)
--- NOTE | 2017-04-17 17:54 | PN ---
DATE OF SERVICE: 04/17/2017 CHIEF COMPLAINT: Shortness of breath, heart failure and pneumonia. HISTORY OF PRESENT ILLNESS: This gentleman is doing well. He is wake alert. He has no complaints. His legs are uncomfortable and painful. He was asked about whether he will be willing to go back to the senior care, but he says that he will not. PHYSICAL EXAMINATION: Chest is completely clear. CARDIAC: Normal. Abdomen soft and nontender. Dressings are wrapped. IMPRESSION: 1. Congestive heart failure. 2. Pneumonitis. 3. Chronic obstructive pulmonary disease. 4. Venostasis disease and ulcers of the legs. PLAN: If he will not go into an extended care facility, then probably he will be able to be discharged tomorrow.
[2017-04-17] MEDS: ATORVASTATIN 40 MG TAB PO SCH (20:08)
[2017-04-18 02:23] VITALS: RESP 18
[2017-04-18] MEDS: HYDROcodone/APAP 5-325MG 1 EACH TAB PO PRN ×2 (03:06→08:40)
[2017-04-18] MEDS: LEVOFLOXACIN 750MG-D5W PMX 750 MG in DEXTROSE/WATER 1 150ML.BAG IVPB SCH (05:43)
[2017-04-18 08:03] VITALS: BP 139/68; TEMP 97.2
[2017-04-18] MEDS: LOSARTAN 50 MG TAB PO SCH (08:41)
[2017-04-18] MEDS: FUROSEMIDE 40 MG TAB PO SCH (08:41)
[2017-04-18] MEDS: HEPARIN SODIUM,PORCINE 5,000 UNIT/ML 1 ML VIAL SQ SCH (08:41)
[2017-04-18] MEDS: NYSTATIN 100,000 UNIT/GM POWD 15 GM TOPICAL SCH (08:41)
[2017-04-18] MEDS: FAMOTIDINE 20 MG TAB PO SCH (08:41)
[2017-04-18] MEDS: PANTOPRAZOLE 40 MG/10 ML VIAL IVP SCH (08:41)
[2017-04-18] MEDS: SPIRONOLACTONE 25 MG TAB PO SCH (08:41)
[2017-04-18] MEDS: CARVEDILOL 3.125 MG TAB PO SCH (08:41)
[2017-04-18] MEDS: ASPIRIN 81 MG CHEW PO SCH (08:41)
[2017-04-18] MEDS: IPRATROPIUM-ALBUTEROL 3 ML NEB INHALATION SCH ×2 (08:58→11:53)
[2017-04-18 09:09] LABS: Anion Gap 9 mmol/L; Blood Urea Nitrogen 25 mg/dL (9-20); Carbon Dioxide 26 mmol/L (22-30); Chloride 102 mmol/L (98-107); Glucose 94 mg/dL (74-99); Potassium 4.2 mmol/L (3.5-5.1); Sodium 137 mmol/L (137-145)
[2017-04-18 09:10] LABS: ALT 32 U/L (21-72); AST 26 U/L (17-59); Alkaline Phosphatase 114 U/L (38-126); Calcium 9.3 mg/dL (8.4-10.2); Non-African American GFR(MDRD) >60 (>60 ml/min/1.73 sqM); Total Bilirubin 1.4 mg/dL (0.2-1.3); Total Protein 6.8 g/dL (6.3-8.2)
--- NOTE | 2017-04-18 11:11 | P.DS ---
Providers Date of admission: 04/15/17 04:27 Expected date of discharge: 04/18/17 Attending physician: Get Lopez Consults: 04/15/17 13:42 Consult Physician Urgent Consulting Provider: Isaac Martinez Consult Reason/Comments: Bilateral nonhealing wounds increase edema known to service Do you want consulting provider notified?: Yes 04/15/17 14:11 Consult Physician Urgent Consulting Provider: Wilton Abdalla Consult Reason/Comments: Questionable hemoptysis per nursing report Do you want consulting provider notified?: Yes 04/15/17 14:36 Consult Physician Urgent Consulting Provider: Paul Milligan Consult Reason/Comments: Elevated BNP shortness of breath Do you want consulting provider notified?: Yes Primary care physician: Get Lopez Hospital Course: 86-year-old male who was admitted on the day of admission to the emergency room via the EMS system in which the family activated when patient was reportedly experiencing intractable severe bilateral lower extremity pain. Patient has poor past medical recall is a poor historian. Very hard of hearing Apparently the patient was just discharged from an ECF facility [facility] on March 16. At that time the patient was experiencing bilateral lower extremity edema which was suspected due to arteriovenous insufficiency involving the lower extremities with cellulitis. No family at the bedside. Patient states that the pain after being discharged from the ECF facility was unbearable could not tolerate having the legs touched. Patient has a class V healing ulcer no necrotic tissue noted on the right dorsum foot and a class V healing ulcer due to peripheral vascular disease involving the right lower extremity anterior. These were present on the last admission March 16. Patient states her legs are so tender and painful he cannot tolerate them. Additionally patient states that he has been feeling short of breath. But the legs have not been swollen. Patient does have a history of peripheral vascular disease peripheral vascular occlusive disease reviewing the computerized medical record patient has been seen in the past by Dr. Martinez has been diagnosed with venous insufficiency with venous ulcers. Patient had been coming to the wound clinic for ulcer in the left lower extremity in the right lower extremity. Patient was last seen in the wound center on April [address] Martinez Nursing reports patient did have an episode of questionable hemoptysis cough. A small amount of bloody secretions did note the BNP is elevated to 6000 patient states he's been feeling short of breath Patient was seen by Dr. Chappell and pulmonary service. Patient had a CAT scan of the chest it did show evidence of pleural calcification bilaterally suggestive of previous asbestos exposure. There was also evidence of interstitial lung disease with fibrotic changes lung bases bilaterally. No significant cough noted no sputum production. Patient had no clots to suggest any hemoptysis. There was no history of DVT in the lower extremities. Patient denied any previous history of asbestos exposure. 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 Martinez who follows the patient in the outpatient setting. He recommended medihoney for the wound on a daily basis and the patient can follow-up in the wound care center in regards to patient's wound on the left lower extremity. A cardiology consultation was requested. Patient does have a history of ischemic cardiomyopathy with an ejection fraction less than 25% who has an ICD in. In the outpatient setting the patient is seen by vivek Diego. Cardiology did start IV Lasix diuresed effectively with a noted improvement in patient's symptoms. Patient was felt to be medically stable from all consulting physicians and that the patient could be discharged. travel agency manager did see patient pursue the discharge plan patient was adamant about not returning to an ECF facility plan home with home care \ Impression Present on admission bilateral venous ulcers lower extremity being followed by the wound care center with dr martinez Intractable bilateral lower extremity pain Present on admission shortness of breath suspect due to an acute exacerbation of systolic congestive heart failure elevated BNP decompensated Chronic debility due to comorbidities A recent admission to an ECF facility for rehab Paroxysmal atrial fibrillation not a candidate for anticoagulation increased risks outweigh benefit in a patient with a history of frequent falls Known coronary artery disease with a history of coronary artery bypass grafting 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 Patient denies any exposure to asbestos Limited hemoptysis blood-tinged mucus production warrants no further investigation likely related to a component of mild bronchitis doubt pneumonia The above dictated assessment and findings were discussed with dr lopez . Impression and the plan of care have been dictated as directed. Cassandra Moon nurse practitioner acting as a scribe for dr lopez Plan - Discharge Summary New Discharge Prescriptions: New Carvedilol [Coreg] 3.125 mg PO BID-W/MEALS #60 tab Losartan Potassium [Cozaar] 100 mg PO DAILY #30 tab Furosemide [Lasix] 20 mg PO 1600 #30 tab Furosemide [Lasix] 40 mg PO DAILY #30 tab Levofloxacin [Levaquin] 500 mg PO DAILY #5 tab Continue Spironolactone [Aldactone] 25 mg PO DAILY #60 tab Acetaminophen Tab [Tylenol] 650 mg PO Q6HR PRN #0 tab PRN Reason: Mild Pain Or Fever > 100.5 Aspirin 81 mg PO DAILY chew Atorvastatin [Lipitor] 40 mg PO HS tab Ipratropium-Albuterol Nebulize [Duoneb 0.5 mg-3 mg/3 ml Soln] 3 ml INHALATION RT-QID ampul.neb Nystatin 100,000 Unit/gm Powd [Mycostatin Powder] 1 applic TOPICAL BID applic Collagenase [Santyl] 1 applic TOPICAL DAILY applic HYDROcodone/APAP 5-325MG [[place] 5-325] 1 each PO Q4H PRN #30 tab PRN Reason: Moderate Pain Discontinued Losartan [Cozaar] 50 mg PO BID Discharge Medication List Spironolactone [Aldactone] 25 mg PO DAILY #60 tab 05/28/15 [Rx] Acetaminophen Tab [Tylenol] 650 mg PO Q6HR PRN #0 tab 03/16/17 [Rx] Aspirin 81 mg PO DAILY chew 03/16/17 [Rx] Atorvastatin [Lipitor] 40 mg PO HS tab 03/16/17 [Rx] Collagenase [Santyl] 1 applic TOPICAL DAILY applic 03/16/17 [Rx] HYDROcodone/APAP 5-325MG [[place] 5-325] 1 each PO Q4H PRN #30 tab 03/16/17 [Rx] Ipratropium-Albuterol Nebulize [Duoneb 0.5 mg-3 mg/3 ml Soln] 3 ml INHALATION RT -QID ampul.neb 03/16/17 [Rx] Nystatin 100,000 Unit/gm Powd [Mycostatin Powder] 1 applic TOPICAL BID applic 05/10/17 [Rx] Carvedilol [Coreg] 3.125 mg PO BID-W/MEALS #60 tab 04/18/17 [Rx] Furosemide [Lasix] 20 mg PO 1600 #30 tab 04/18/17 [Rx] Furosemide [Lasix] 40 mg PO DAILY #30 tab 04/18/17 [Rx] Levofloxacin [Levaquin] 500 mg PO DAILY #5 tab 04/18/17 [Rx] Losartan Potassium [Cozaar] 100 mg PO DAILY #30 tab 04/18/17 [Rx] Follow up Appointment(s)/Referral(s): Get Lopez MD [Primary Care Provider] - 04/26/17 11:40 am [facility], [NON-STAFF] - 1 Week Shad Titus MD [STAFF PHYSICIAN] - 05/03/17 1:30 pm Isaac Martinez MD [STAFF PHYSICIAN] - 04/27/17 2:00 pm Patient Instructions/Handouts: Heart Failure (DC) Activity/Diet/Wound Care/Special Instructions: Follow up at [facility] wound care center April 25 at 1:30pm Discharge Disposition: HOME WITH HOME HEALTH SERVICES
[2017-04-18 12:15] VITALS: PULSE 84
--- NOTE | 2017-04-18 13:26 | P.PN ---
Subjective Principal diagnosis: Chronic shortness of breath secondary to pulmonary fibrosis , chronic atrial fibrillation, and chronic congestive heart failure. 86-year-old male patientWho was hospitalized because of pain in lower extremities. The patient has had chronic pain secondary to chronic vascular insufficiency. The patient has an arterial vascular venous insufficiency with open wounds and the patient is being followed up at the wound center. The patient typically sees Dr. Padilla. I was asked even with the patient's pulmonary status. A CAT scan of the chest was obtained which upon my review showed evidence of pleural calcification bilaterally suggestive of previous asbestos exposure. There is also evidence of interstitial lung disease with fibrotic changes lung bases bilaterally. The patient had some increased cough and chest congestion. Is known to have cardiomyopathy and ejection fraction of less than 20%. No significant cough or sputum production. No orthopnea. No fever chills or night sweats. He coughed some minimal mucus with blood tinged material. There was no cough and no blood clots or any other larger chunks to suggest any massive hemoptysis. No history of any DVT in lower extremities bilaterally. The patient himself denies any previous history of asbestos exposure. 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 On 04/17/2017 the patient doing well. Still coughing some yellowish sputum. No respiratory distress. Lower extremities remains sore. No change in mental status. Resting comfortably in bed. On 04/18/2017, patient is doing well, less shortness of breath noted, continues to have intermittent productive cough with slightly yellow sputum. Patient is being considered for discharge planning today. Objective - Vital Signs Vital signs: Vital Signs Temp 97.2 F L 04/18/17 07:00 Pulse 84 04/18/17 12:14 Resp 18 04/18/17 08:00 BP 139/68 04/18/17 07:00 Pulse Ox 95 04/18/17 09:05 Intake & Output 04/17/17 04/18/17 04/18/17 18:59 06:59 18:59 Intake Total 300 Output Total 525 Balance -225 Weight 64.1 kg 59 kg Intake: Oral 300 Output: Urine 525 Other: Voiding Method Toilet Urinal # Voids 3 - Exam Physical Exam: Revealed an 86-year-old in no distress. HEENT:[Neck is supple.] [No neck masses.] [No thyromegaly.] [No JVD.] Chest: Diminished breath sounds and some coarse crackles at the bases] Cardiac Exam: [Irregular irregular rhythm Normal S1 and S2, no S3 gallop, no murmur.] Abdomen: [Soft, nontender, no megaly, no rebound, no guarding, normal bowel sounds.] Extremities: [No clubbing, no edema, no cyanosis.] Neurological Exam: [No focal neurologic deficit.] - Labs CBC & Chem 7: 04/17/17 07:58 04/18/17 08:20 Labs: Abnormal Lab Results - Last 24 Hours (Table) 04/18/17 Range/Units 08:20 BUN 25 H (9-20) mg/dL Total Bilirubin 1.4 H (0.2-1.3) mg/dL Microbiology - Last 24 Hours (Table) 04/15/17 00:40 Blood Culture - Preliminary Blood No Growth after 72 hours Assessment and Plan Plan: 1 Chronic dyspnea, multifactorial. The patient has an underlying pleural calcification and fibrosis and lung bases bilaterally which raises suspicion for previous asbestos exposure/asbestosis. Clinically however the patient denies any exposure to asbestos or any other occupation that would put him at a pneumoconiosis hazards. The findings however I suggested. In addition, shortness of breath attributed to his underlying cardiomyopathy and CHF 2 arterial vascular insufficiency with chronic ulceration lower extremities bilaterally 3 coronary artery disease with decreased bypass surgery 4 limited hemoptysis/blood-tinged mucus production which warranted no further investigation. Could be related to CHF with a component of mild bronchitis. Doubt pneumonia at this point 5 chronic atrial fibrillation 6 rheumatoid arthritis 7 hypertension 8 hyperlipidemia 9 osteoarthritis Recommendation: Agree with discharge planning today, follow-up with Dr. Abdalla on outpatient basis. Time with Patient: Less than 30
--- NOTE | 2017-04-19 14:09 | PN ---
DATE OF SERVICE: 04/18/2017 CHIEF COMPLAINT: Congestive heart failure, shortness of breath, pneumonia. HISTORY OF PRESENT ILLNESS: This gentleman is doing well. He is awake and alert. He refused to go to a shelter. His temperature has been down. Chest is clear and it is felt that he can go. He will be returning home with visiting nurses and this will be arranged by the nurse practitioner. PHYSICAL EXAM: His chest is clear and cardiac exam is normal. The abdomen is soft, nontender. There is no edema in the lower extremities and ulcers are nearly completely healed. IMPRESSION: 1. Congestive heart failure. 2. Pneumonitis. 3. Venostasis disease and stasis ulcers with cellulitis. PLAN: Home today and this will be arranged by the nurse practitioner.
== END 2017-04-18 14:03 | disposition home health service (06) | DRG 299 ==
LOC: EC 00:11 → 3SUR 04:27 → 4MS4W 18:21
PROVIDERS: ADMIT Family Medicine; ATTEND Family Medicine
DX: I70.248 Atherosclerosis of native arteries of left leg with ulceration of other part of lower leg (principal); I50.23 Acute on chronic systolic (congestive) heart failure; L03.115 Cellulitis of right lower limb; I48.0 Paroxysmal atrial fibrillation; J44.9 Chronic obstructive pulmonary disease, unspecified; L03.116 Cellulitis of left lower limb; I11.0 Hypertensive heart disease with heart failure; L97.829 Non-pressure chronic ulcer of other part of left lower leg with unspecified severity; L97.819 Non-pressure chronic ulcer of other part of right lower leg with unspecified severity; I25.5 Ischemic cardiomyopathy; I25.10 Atherosclerotic heart disease of native coronary artery without angina pectoris; E78.5 Hyperlipidemia, unspecified; H91.90 Unspecified hearing loss, unspecified ear; I25.2 Old myocardial infarction; I48.2 Chronic atrial fibrillation; I70.238 Atherosclerosis of native arteries of right leg with ulceration of other part of lower leg; I87.2 Venous insufficiency (chronic) (peripheral); J61 Pneumoconiosis due to asbestos and other mineral fibers; M06.9 Rheumatoid arthritis, unspecified; M19.90 Unspecified osteoarthritis, unspecified site; Z77.090 Contact with and (suspected) exposure to asbestos; Z79.82 Long term (current) use of aspirin; Z79.899 Other long term (current) drug therapy; Z82.3 Family history of stroke; Z82.49 Family history of ischemic heart disease and other diseases of the circulatory system; Z87.01 Personal history of pneumonia (recurrent); Z95.1 Presence of aortocoronary bypass graft; Z95.810 Presence of automatic (implantable) cardiac defibrillator
CPT/HCPCS: 36415; 71020; 80053; 81001; 83605; 83880; 84484; 85025; 85610; 85730; 87040; 87070; 87086; 87205; 93005; 93306; 93970; 94640; 94760; 96361; 96365; 96375; 99285

== ENCOUNTER 2018-02-28 14:26 | Inpatient (IN) | payer MEDICARE ==
[2018-02-28] MEDS ORDERED: SODIUM CHLORIDE 0.9% 500 ML IV SCH (14:45)
--- NOTE | 2018-02-28 14:45 | ED ---
General Adult HPI - General Chief complaint: Skin/Abscess/Foreign Body Stated complaint: Weakness, Poss Infection Time Seen by Provider: 02/28/18 14:32 Source: patient, EMS, RN notes reviewed Mode of arrival: EMS Limitations: no limitations - History of Present Illness Initial comments: Patient is a pleasant 87-year-old male presenting to the emergency department with bilateral lower leg pain. Symptoms are chronic however worse over the past few days. Patient has known peripheral vascular disease. There was question of patient was offered amputation previously. Patient states his sores are getting worse. Patient does go to the wound center however his last appointment 3 weeks ago was canceled on him. No fevers. Patient has a difficult time getting out of bed and controlling his pain. - Related Data Home Medications Medication Instructions Recorded Confirmed Furosemide [Lasix] 20 mg PO HS@1600 02/28/18 02/28/18 HYDROcodone/APAP 5-325MG [[place] 1 tab PO Q4H PRN 02/28/18 02/28/18 5-325] Simvastatin [Zocor] 40 mg PO HS 02/28/18 02/28/18 Previous Rx's Medication Instructions Recorded Aspirin 81 mg PO DAILY chew 03/16/17 Carvedilol [Coreg] 3.125 mg PO BID-W/MEALS #60 tab 04/18/17 Furosemide [Lasix] 40 mg PO DAILY #30 tab 04/18/17 Losartan Potassium [Cozaar] 100 mg PO DAILY #30 tab 04/18/17 Allergies Allergy/AdvReac Type Severity Reaction Status Date / Time No Known Allergies Allergy Verified 02/28/18 15:15 Review of Systems ROS Statement: Those systems with pertinent positive or pertinent negative responses have been documented in the HPI. ROS Other: All systems not noted in ROS Statement are negative. Constitutional: Denies: fever Eyes: Denies: eye pain ENT: Denies: ear pain Respiratory: Denies: cough Cardiovascular: Denies: chest pain Endocrine: Reports: fatigue Gastrointestinal: Denies: abdominal pain Genitourinary: Denies: dysuria Musculoskeletal: Denies: back pain Skin: Reports: rash, lesions Neurological: Reports: weakness Past Medical History Past Medical History: Atrial Fibrillation, Coronary Artery Disease (CAD), Chest Pain / Angina, Heart Failure, Hyperlipidemia, Hypertension, Myocardial Infarction (DE), Osteoarthritis (OA), Pneumonia, Rheumatoid Arthritis (RA), Skin Disorder, Vascular Disorder Additional Past Medical History / Comment(s): Chronic leg wounds-pt states they were healed up for about a year but began giving him trouble again about 7-10 days ago- has been seen in wound center by Dr. Martinez, chronic back pain, numbness down both buttocks into thighs, ischemic cardiomyopathy. Pulmonary edema -2016 Last Myocardial Infarction Date:: 1989 History of Any Multi-Drug Resistant Organisms: MRSA Date of last positivie culture/infection: 03/10/17 MDRO Source:: right leg Past Surgical History: AICD, Back Surgery, Bowel Resection, Coronary Bypass/CABG , Heart Catheterization, Hernia Repair, Pacemaker, Tonsillectomy Additional Past Surgical History / Comment(s): small bowel resection for history of small bowel obstruction, yessy inguinal hernia repair, 5 vessel CABG in 1989 at [facility], back surgery x3, AICD placement, back surgery, previous history of bowel resection, tonsillectomy, hernia repair Past Anesthesia/Blood Transfusion Reactions: No Reported Reaction Type of Cardiac Device: AICD Device Placement Date:: May 19, 2015 Past Psychological History: No Psychological Hx Reported Smoking Status: Never smoker Past Alcohol Use History: None Reported Past Drug Use History: None Reported - Past Family History Father Family Medical History: Coronary Artery Disease (CAD) Additional Family Medical History / Comment(s): of heart attack age 86 Mother Additional Family Medical History / Comment(s): age 77 of stroke or heart attack General Exam Limitations: no limitations General appearance: alert, in no apparent distress Head exam: Present: atraumatic Eye exam: Present: normal appearance ENT exam: Present: normal oropharynx Neck exam: Present: normal inspection Respiratory exam: Present: normal lung sounds bilaterally Cardiovascular Exam: Present: bradycardia Expanded Peripheral pulses: 2+: Femoral (R), Femoral (L) GI/Abdominal exam: Present: soft. Absent: tenderness Extremities exam: Present: tenderness, other (Bilateral lower legs with multiple sores with purulent drainage, up to 4 cm. Cap refill 2-3 seconds. Unable to palpate pedal pulses. Bilateral erythema. Bilateral tenderness. Area extends from the feet to just below the knee.) Neurological exam: Present: alert Expanded Motor strength exam: RUE: 5, LUE: 5, RLE: 5, LLE: 5 Psychiatric exam: Present: normal affect, normal mood Skin exam: Present: normal color Course Vital Signs 02/28/18 02/28/18 02/28/18 14:27 15:10 16:16 Temperature 98.3 F Pulse Rate 52 L 58 L 51 L Respiratory 18 18 18 Rate Blood Pressure 150/77 120/58 150/76 O2 Sat by Pulse 94 L 98 100 Oximetry - Reevaluation(s) Reevaluation #1: 02/28/18 16:52 Patient does not meet sepsis criteria EKG Findings - EKG Comments: EKG Findings:: Paced rhythm at 51. QRS 194. QT 534. QTC 492. Left axis. Wide-complex QRS. Nonspecific ST-T. Medical Decision Making - Medical Decision Making Patient is having difficulty with ADLs at home. Case was discussed in detail with Dr. Wilson, who will admit for Dr. Hallman. - Lab Data Result diagrams: 02/28/18 14:50 02/28/18 14:50 Lab Results 02/28/18 02/28/18 02/28/18 Range/Units 14:50 14:50 14:50 WBC 8.2 (3.8-10.6) k/uL RBC 5.43 (4.30-5.90) m/uL Hgb 14.5 (13.0-17.5) gm/dL Hct 45.6 (39.0-53.0) % MCV 84.1 (80.0-100.0) fL MCH 26.7 (25.0-35.0) pg MCHC 31.7 (31.0-37.0) g/dL RDW 15.3 (11.5-15.5) % Plt Count 116 L (150-450) k/uL Neutrophils % 72 % Lymphocytes % 17 % Monocytes % 8 % Eosinophils % 1 % Basophils % 0 % Neutrophils # 5.9 (1.3-7.7) k/uL Lymphocytes # 1.4 (1.0-4.8) k/uL Monocytes # 0.6 (0-1.0) k/uL Eosinophils # 0.0 (0-0.7) k/uL Basophils # 0.0 (0-0.2) k/uL PT (9.0-12.0) sec INR (<1.2) APTT (22.0-30.0) sec Sodium 141 (137-145) mmol/L Potassium 4.6 (3.5-5.1) mmol/L Chloride 104 (98-107) mmol/L Carbon Dioxide 23 (22-30) mmol/L Anion Gap 14 mmol/L BUN 25 H (9-20) mg/dL Creatinine 0.60 L (0.66-1.25) mg/dL Est GFR (CKD-EPI)AfAm >90 (>60 ml/min/1.73 sqM) Est GFR (CKD-EPI)NonAf >90 (>60 ml/min/1.73 sqM) Glucose 94 (74-99) mg/dL Plasma Lactic Acid Daniel 1.3 (0.7-2.0) mmol/L Calcium 9.5 (8.4-10.2) mg/dL Total Bilirubin 1.0 (0.2-1.3) mg/dL AST 41 (17-59) U/L ALT 36 (21-72) U/L Alkaline Phosphatase 276 H (38-126) U/L Total Protein 6.8 (6.3-8.2) g/dL Albumin 3.6 (3.5-5.0) g/dL 02/28/18 Range/Units 14:50 WBC (3.8-10.6) k/uL RBC (4.30-5.90) m/uL Hgb (13.0-17.5) gm/dL Hct (39.0-53.0) % MCV (80.0-100.0) fL MCH (25.0-35.0) pg MCHC (31.0-37.0) g/dL RDW (11.5-15.5) % Plt Count (150-450) k/uL Neutrophils % % Lymphocytes % % Monocytes % % Eosinophils % % Basophils % % Neutrophils # (1.3-7.7) k/uL Lymphocytes # (1.0-4.8) k/uL Monocytes # (0-1.0) k/uL Eosinophils # (0-0.7) k/uL Basophils # (0-0.2) k/uL PT 11.2 (9.0-12.0) sec INR 1.2 H (<1.2) APTT 28.1 (22.0-30.0) sec Sodium (137-145) mmol/L Potassium (3.5-5.1) mmol/L Chloride (98-107) mmol/L Carbon Dioxide (22-30) mmol/L Anion Gap mmol/L BUN (9-20) mg/dL Creatinine (0.66-1.25) mg/dL Est GFR (CKD-EPI)AfAm (>60 ml/min/1.73 sqM) Est GFR (CKD-EPI)NonAf (>60 ml/min/1.73 sqM) Glucose (74-99) mg/dL Plasma Lactic Acid Daniel (0.7-2.0) mmol/L Calcium (8.4-10.2) mg/dL Total Bilirubin (0.2-1.3) mg/dL AST (17-59) U/L ALT (21-72) U/L Alkaline Phosphatase (38-126) U/L Total Protein (6.3-8.2) g/dL Albumin (3.5-5.0) g/dL - Radiology Data Radiology results: image reviewed (Bilateral leg x-ray reveals no acute process) Disposition Clinical Impression: Bilateral lower leg cellulitis Disposition: ADMITTED IP TO THIS HOSP Is patient prescribed a controlled substance at d/c from ED?: No Referrals: Clarence Hallman MD [Primary Care Provider] - 1-2 days Decision Time: 16:52
[2018-02-28 15:07] LABS: Basophils % (A) 0 %; Eosinophils % (A) 1 %; HCT 45.6 % (39.0-53.0); HGB 14.5 gm/dL (13.0-17.5); Lymphocytes # (A) 1.4 k/uL (1.0-4.8); Lymphocytes % (A) 17 %; MCH 26.7 pg (25.0-35.0); MCHC 31.7 g/dL (31.0-37.0); MCV 84.1 fL (80.0-100.0); Mean Platelet Volume 7.7; Monocytes # (A) 0.6 k/uL (0-1.0); Monocytes % (A) 8 %; Neutrophils # (A) 5.9 k/uL (1.3-7.7); Neutrophils % (A) 72 %; Platelet Count 116 k/uL (150-450); RBC 5.43 m/uL (4.30-5.90); RDW 15.3 % (11.5-15.5); WBC 8.2 k/uL (3.8-10.6)
[2018-02-28 15:13] LABS: INR 1.2 (<1.2); Partial Thromboplastin Time 28.1 sec (22.0-30.0); Prothrombin Time 11.2 sec (9.0-12.0)
[2018-02-28 15:21] LABS: ALT 36 U/L (21-72); AST 41 U/L (17-59); Albumin 3.6 g/dL (3.5-5.0); Alkaline Phosphatase 276 U/L (38-126); Anion Gap 14 mmol/L; Blood Urea Nitrogen 25 mg/dL (9-20); Calcium 9.5 mg/dL (8.4-10.2); Carbon Dioxide 23 mmol/L (22-30); Chloride 104 mmol/L (98-107); Glucose 94 mg/dL (74-99); Potassium 4.6 mmol/L (3.5-5.1); Sodium 141 mmol/L (137-145); Total Protein 6.8 g/dL (6.3-8.2)
[2018-02-28] MEDS ORDERED: MORPHINE SULFATE 4 MG/0.8 ML SYRINGE (INJ) IVP STA (16:09)
--- NOTE | 2018-02-28 16:09 | XR ---
EXAMINATION TYPE: XR tibia fibula bilateral DATE OF EXAM: 02/28/2018 CLINICAL HISTORY: Open wounds bilateral lower extremity, infection per order TECHNIQUE: Two views of the bilateral legs are obtained. COMPARISON: Prior bilateral leg x-rays March 10, 2017.. FINDINGS: Osseous structures are demineralized. There is no acute fracture or dislocation seen in ei ther tibia or fibula. Chondrocalcinosis and spurring in both knee joints is redemonstrated. There is vascular calcification appreciated bilaterally. Surgical clips in the left leg are now present likely from interval venous harvesting procedure. There is no suspicious new cortical destruction or perios teal reaction in either leg. Visualized portion of ankle joints is grossly unremarkable. IMPRESSION: There is no radiographic evidence for acute osteomyelitis.
[2018-02-28] MEDS ORDERED: NALOXONE 0.4 MG/ML 1 ML VIAL IV PRN (16:53)
[2018-02-28] MEDS ORDERED: AMPICILLIN-SULBACTAM 1.5 GM in SODIUM CHLORIDE 0.9% 50 ML IVPB SCH (17:00)
[2018-02-28] MEDS: SODIUM CHLORIDE 0.9% 1,000 ML IV SCH (18:14)
[2018-02-28] MEDS ORDERED: SILVER sulfADIAZINE Cream 400 GM 1 APPLIC APPLIC TOPICAL SCH (21:11)
--- NOTE | 2018-02-28 21:47 | HP ---
HISTORY AND PHYSICAL CHIEF COMPLAINT: Pain and swelling of the both legs. HISTORY OF PRESENT ILLNESS: 87-year-old gentleman with a past medical history of multiple medical problems, including atrial fibrillation, CAD, CHF, hyperlipidemia, hypertension, history of DJD, rheumatoid arthritis being followed by Dr. Clarence Hallman in the outpatient setting, also seeing Dr. Martinez in the Vascular Clinic for bilateral venous ulcers. The venous ulcers are waxing and waning according to him, healed but right now the patient has flare up of both legs and patient admitted to the hospital for further evaluation and treatment. Patient complains of severe leg pain also. There is no history of any fever, rigors, or chills. No history of headache, loss of consciousness or seizures. PAST MEDICAL HISTORY: Atrial fibrillation, history of CHF, COPD, hypertension, myocardial infarction, pneumonia, rheumatoid arthritis. MEDICATIONS: Prior to admission include: 1. [place] 5 mg q.4h p.r.n. 2. Lasix 20 mg q.h.s. 3. Zocor 40 mg at bedtime. 4. Cozaar 100 mg. 5. Lasix 40 mg b.i.d. 6. Coreg 3.125 mg p.o. b.i.d. with meals. 7. Aspirin 81 mg daily. ALLERGIES: None. FAMILY HISTORY: History of coronary artery disease. SOCIAL HISTORY: No history of smoking. No alcohol intake. REVIEW OF SYSTEMS: ENT: Diminished hearing and vision. CARDIOVASCULAR: No angina or palpitations. Respiratory: As mentioned earlier. GI no nausea or vomiting. : No dysuria or hematuria. Central nervous system: No numbness or weakness. Allergy/Immunology: No asthma or hayfever Musculoskeletal: As mentioned earlier. Hematology/Oncology: No history of anemia. Endocrine: No history of hypothyroidism and diabetes. Constitutional: As mentioned earlier. Dermatology: Negative. Rheumatology: Negative. Psychiatric: As mentioned earlier. PHYSICAL EXAMINATION: The patient is alert, oriented times three, pulse 50. Blood pressure 130/74, respiration 20, temperature 98.1, pulse ox 98% on 2 L. HEENT: Conjunctivae normal. Oral mucosa moist. Neck is no jugular venous distention. No carotid bruit. No lymph node enlargement. Cardiovascular S1-S2 muffled. Respiratory: Breath sounds diminished suspicion the bases. A few scattered rhonchi and crackles. Expiratory wheezing also. ABDOMEN: Soft, nontender. No mass palpable. Legs bilateral leg edema, cellulitis and necrotic ulcers present. Tender. Pulses diminished bilaterally. Nervous system: Higher functions as mentioned earlier, moves all 4 limbs. No focal motor or sensory deficits. Lymphatics: No lymph nodes palpable in the neck, axillae or groin. Skin as mentioned earlier. Joints: No active deforming arthropathy. LABS: WBC 8.2, platelets 116, other labs noted. ASSESSMENT: 1. Bilateral leg ulcers, possible venous sepsis with cellulitis with failure of outpatient treatment. 2. Peripheral vascular disease. 3. Thrombocytopenia. 4. History atrial fibrillation. 5. History of coronary artery disease. 6. Rule out osteomyelitis. 7. Hypertension. 8. Hyperlipidemia. 9. Myocardial infarction. 10.Degenerative joint disease. 11.Rheumatoid arthritis. 12.History of congestive heart failure. 13.History of AICD. 14.History of back surgery. 15.History of coronary artery disease/coronary artery bypass grafting. RECOMMENDATIONS AND DISCUSSION: In this 87-year-old gentleman who presented with multiple complex medical issues, we will monitor the patient closely, continue the current medications, management and symptomatic treatment. Otherwise, we will initiate broad-spectrum IV antibiotics with Zosyn. Obtain cultures. Local wound and wound cultures. DVT prophylaxis. Resume the home medications. Monitor blood sugars closely. Recommend vascular surgery as well as infectious disease evaluation. Prognosis guarded because of multiple complex medical issues. Discussed with the patient. Symptomatic treatment also will be provided. Copy of dictation being forwarded to Dr. Hallman who is the primary physician. MMHARDEEPL / IJN: [id number] /
[2018-02-28] MEDS: MORPHINE SULFATE 4 MG/0.8 ML SYRINGE (INJ) IV PRN (22:14)
[2018-02-28] MEDS: HYDROcodone/APAP 5-325MG 1 EACH TAB PO PRN (22:15)
[2018-02-28] MEDS: CARVEDILOL 3.125 MG TAB PO SCH (22:16)
[2018-02-28] MEDS: ATORVASTATIN 20 MG TAB PO SCH (22:16)
[2018-02-28] MEDS: HEPARIN SODIUM,PORCINE 5,000 UNIT/ML 1 ML VIAL SQ SCH (22:16)
[2018-02-28] MEDS: PIPERACILLIN-TAZOBACTAM 3.375 GM in DEXTROSE/WATER 1 50ML.BAG IVPB SCH (23:51)
[2018-03-01] MEDS: MORPHINE SULFATE 4 MG/0.8 ML SYRINGE (INJ) IV PRN ×2 (02:53→09:02)
[2018-03-01] MEDS: HYDROcodone/APAP 5-325MG 1 EACH TAB PO PRN ×3 (04:14→21:15)
[2018-03-01] MEDS: PIPERACILLIN-TAZOBACTAM 3.375 GM in DEXTROSE/WATER 1 50ML.BAG IVPB SCH ×2 (07:32→16:49)
[2018-03-01] MEDS: ASPIRIN 81 MG PO SCH (07:37)
[2018-03-01] MEDS: FUROSEMIDE 40 MG TAB PO SCH (07:37)
[2018-03-01] MEDS: CARVEDILOL 3.125 MG TAB PO SCH ×2 (07:37→16:50)
[2018-03-01] MEDS: HEPARIN SODIUM,PORCINE 5,000 UNIT/ML 1 ML VIAL SQ SCH ×2 (07:37→21:14)
[2018-03-01] MEDS: LOSARTAN 50 MG TAB PO SCH (07:38)
[2018-03-01 08:22] LABS: Basophils % (A) 1 %; Eosinophils # (A) 0.1 k/uL (0-0.7); Eosinophils % (A) 1 %; HCT 48.2 % (39.0-53.0); HGB 14.4 gm/dL (13.0-17.5); Hypochromasia Marked; Lymphocytes # (A) 1.1 k/uL (1.0-4.8); Lymphocytes % (A) 15 %; MCH 25.9 pg (25.0-35.0); MCHC 29.9 g/dL (31.0-37.0); MCV 86.6 fL (80.0-100.0); Mean Platelet Volume 8.4; Monocytes # (A) 0.4 k/uL (0-1.0); Monocytes % (A) 5 %; Neutrophils # (A) 5.8 k/uL (1.3-7.7); Neutrophils % (A) 76 %; Platelet Count 110 k/uL (150-450); RBC 5.56 m/uL (4.30-5.90); RDW 15.4 % (11.5-15.5); WBC 7.5 k/uL (3.8-10.6)
[2018-03-01 08:45] LABS: Anion Gap 12 mmol/L; Blood Urea Nitrogen 22 mg/dL (9-20); Calcium 9.7 mg/dL (8.4-10.2); Carbon Dioxide 29 mmol/L (22-30); Chloride 102 mmol/L (98-107); Glucose 100 mg/dL (74-99); Sodium 143 mmol/L (137-145)
[2018-03-01 10:39] VITALS: BMI 19.5
--- NOTE | 2018-03-01 12:01 | XR ---
EXAMINATION TYPE: XR chest 1V portable DATE OF EXAM: 03/01/2018 COMPARISON: Prior chest x-ray 04/16/2017 HISTORY: Congestive heart failure TECHNIQUE: Single frontal view of the chest is obtained. FINDINGS: Findings are similar to prior exam. Lung lines are low and the patient is rotated, post me kenrick sternotomy. Heart remains enlarged. Intracardiac defibrillator lead is stable. Bibasilar increas ed density is present, interstitium is increased. No evident pneumothorax. IMPRESSION: Findings suggest congestive heart failure and are compatible with patient's history, fol low-up recommended.
--- NOTE | 2018-03-01 13:47 | NM ---
EXAMINATION TYPE: NM bone 3 phase DATE OF EXAM: 03/01/2018 COMPARISON: Bilateral legs for 24/02/2018 HISTORY: Osteomyelitis, open wounds lower legs Triple phase bone scintigraphy was performed following the injection of 24.3 mCi Tc 99m MDP. Immedia te images and 4.5 hours post injection images acquired. FINDINGS: Some mild increased blood flow noted to the right lower extremity as compared to the left, blood pool images also show mild increase to the right lower extremity radicular to the left, some focal uptake is noted at the level of the distal fibula of the right leg greater than the left. Some uptake at th e level of the lateral right femur delayed imaging may be due to degenerative change. IMPRESSION: Findings could be indicative of osteomyelitis. MRI may be confirmatory at the level of the right ankl e.
[2018-03-01] MEDS ORDERED: MORPHINE ORAL SOLN 10 MG/5 ML CUP PO PRN (13:58)
[2018-03-01] MEDS ORDERED: FUROSEMIDE 20 MG TAB PO SCH (16:00)
[2018-03-01] MEDS: SODIUM CHLORIDE 0.9% 1,000 ML IV SCH (16:51)
--- NOTE | 2018-03-01 20:06 | CONS ---
CONSULTATION This is an 87 -year-old gentleman, well known to me from the wound clinic. He was coming on a regular basis to the Wound Clinic for bilateral lower extremity ulcers. The patient had angiogram done in the past which showed infrapopliteal occlusive disease. The patient stopped coming to the Wound Clinic and I was consulted today. He has been admitted with bilateral lower extremity nonhealing ulcers. MEDICAL HISTORY: History of atrial fibrillation, coronary disease, history of congestive heart failure, history of hypertension, history of myocardial infarction in the past. EXAMINATION: Patient was seen in his room. NECK: Supple. No bruit appreciated. CHEST: Clear to auscultation. ABDOMEN: Soft. Femorals are 1+, bilateral. Patient has bilateral lower extremity nonhealing ulcers. The pulses are not palpable. PLAN: Continue with local wound care. I will review the angiogram and further recommendations will be made. In the meantime, we will continue with local wound care. Follow with you. MMHARDEEPL / IJN: [id number] /
--- NOTE | 2018-03-01 20:51 | PN ---
PROGRESS NOTE DATE OF SERVICE: 03/01/2018 This 87-year-old gentleman admitted with pain and swelling and cellulitis of both legs is being closely monitored. No chest pain. No palpitations. No fever. On exam, alert and oriented x2. Pulse 55, blood pressure 110/55, respirations 16, temperature 98.2, pulse ox 99% on 2 L. HEENT: Conjunctivae normal. Oral mucosa moist. NECK: No jugular venous distention. No carotid bruit. No lymph node enlargement. CARDIOVASCULAR SYSTEM: S1, S2 muffled. RESPIRATORY SYSTEM: Breath sounds diminished at the bases. A few rhonchi. No crackles. ABDOMEN: Soft, nontender. LEGS: Bilateral leg cellulitis. NERVOUS SYSTEM: No focal deficit. Labs are noted. CBC. Platelets are 110. ASSESSMENT: 1. Bilateral leg ulcers, possibly venous ulcers, with cellulitis with failure of outpatient treatment with possible osteomyelitis. 2. Peripheral vascular disease. 3. Thrombocytopenia. 4. History of atrial fibrillation. 5. History of coronary artery disease. 6. Rule out osteomyelitis. 7. Hypertension. 8. Hyperlipidemia. 9. Myocardial infarction. 10.Degenerative joint disease. 11.Arthritis. 12.Gait dysfunction. RECOMMENDATIONS AND DISCUSSION: I recommend to continue current medication, continue symptomatic treatment. A bone scan was done today which showed possible osteomyelitis. Will follow the patient closely with Infectious Disease as well as Vascular Surgery. Prognosis guarded. Further recommendations to follow. MMHARDEEPL / IJN: [id number] /
[2018-03-01] MEDS: ATORVASTATIN 20 MG TAB PO SCH (21:14)
[2018-03-01] MEDS ORDERED: VANCOMYCIN IV PER PHARMACY 1 EACH MISC MISCELLANE PRN (22:30)
[2018-03-01] MEDS: VANCOMYCIN 1,250 MG in SODIUM CHLORIDE 0.9% 250 ML IVPB SCH (23:33)
[2018-03-02] MEDS: HYDROcodone/APAP 5-325MG 1 EACH TAB PO PRN ×5 (04:29→21:11)
--- NOTE | 2018-03-02 06:54 | CONS ---
CONSULTATION DATE OF SERVICE: 03/01/2018 REASON FOR CONSULTATION: Bilateral extremity wounds and cellulitis. HISTORY OF PRESENT ILLNESS: The patient is an 87-year-old male with past medical history significant for bilateral lower extremity venostasis ulcer and cellulitis. Patient presenting to the ER at [facility] with chief complaints of pain in bilateral lower extremities. The patient did have multiple ulcerations on both legs and has been complaining of pain to the wound area. The patient had these ulcerations for a couple of weeks now. Pain did worsen in the last week or so, more of a throbbing in nature especially at times of dressing changes with intensity about 5 to 6/10, and no radiation. The patient had mild drainage from all those wounds. The patient denies any high-grade fever with worsening pain and swelling and redness. The patient presented to the [facility] where the patient did have x-rays of the tibia and fibula. Those x-rays reported negative for any changes suspicious for osteomyelitis. The patient did have cultures obtained. He was started on Zosyn and Infectious Disease has been consulted for further recommendation regarding antibiotic therapy. REVIEW OF SYSTEMS: CONSTITUTIONAL: Positive for weakness. No high-grade fever. EYES: No complaint. ENT: No complaint. RESPIRATORY: No complaint. CARDIOVASCULAR: No complaint. GENITOURINARY: No complaint. GASTROINTESTINAL: No complaint. MUSCULOSKELETAL: As per HPI. INTEGUMENTARY: As per HPI. PSYCHOLOGICAL: No complaint. ENDOCRINE: No complaint. NEUROLOGIC: No complaint. PAST MEDICAL HISTORY: Hypertension, hyperlipidemia, coronary artery disease, heart failure, chronic lower extremity venostasis ulcers, cellulitis and chronic back pain. PAST SURGICAL HISTORY: Back surgery, bowel resection, coronary artery bypass grafting, hernia repair, pacemaker placement, tonsillectomy and AICD placement. SOCIAL HISTORY: Denies any history of smoking, drinking, or any drug use. FAMILY HISTORY: Father with history of coronary artery disease who of heart attack at the age of 86. Mother of stroke at age of 77. ALLERGIES: No known drug allergies. MEDICATION: Medications currently include the patient is on [place], aspirin, Lipitor, Coreg, Lasix, heparin, Cozaar, Narcan, Silvadene cream and Zosyn. PHYSICAL EXAMINATION: On examination, blood pressure is 120/55, pulse of 50, temperature 97.2. He is 98% on 2 L nasal cannula. General description is an elderly male lying in bed in no distress. No tachypnea or accessory muscle of respiration use. HEENT examination shows no pallor or scleral icterus. Oral mucous membranes dry. No pharyngeal erythema or thrush. NECK: Trachea central. No thyromegaly. LUNGS: Unlabored breathing, clear to auscultation anteriorly. No wheeze or crackle. HEART: S1, S2. Regular rate and rhythm. No added sounds. ABDOMEN: Soft, no tenderness. No guarding or rigidity. EXTREMITIES: legs have superficial ulceration with no slough tissue with surrounding erythema, no foul smelling drainage. NEUROLOGICAL: Patient is awake, alert, oriented x3. Mood and affect normal. LABS: Hemoglobin is 14.4, white count of 7.5 with a BUN of 22 creatinine 0.69. Electrolytes have been normal. Liver enzymes are normal. Wound culture showing presumptive MRSA. Blood cultures have been negative. X-ray was negative for any bony changes. DIAGNOSTIC IMPRESSION AND PLAN: Patient with bilateral lower extremity venostasis ulcers with secondary cellulitis in a patient who has worsening of these wounds over the last week or so. Wounds look mostly superficial and none of the has been negative though the bone scan suspicion for osteomyelitis that will be reviewed with the radiologist. Now the culture showing a presumptive methicillin-resistant Staphylococcus aureus more so superficial cultures though and no evidence of any abscess that may need to be drained. PLAN: 1. We will discontinue Silvadene. 2. Start local wound care with Aquacel Silver followed by light compression dressing. 3. We will start the patient on vancomycin, pharmacy to dose, target of 15. 4. We will follow up on clinical condition and culture to further adjust medication if needed. Thank you for this consultation. Will follow this patient along with you. MMODL / IJN: [id number] /
[2018-03-02 07:08] LABS: Basophils % (A) 0 %; Eosinophils # (A) 0.1 k/uL (0-0.7); Eosinophils % (A) 2 %; HCT 41.1 % (39.0-53.0); HGB 12.7 gm/dL (13.0-17.5); Hypochromasia Slight; Lymphocytes # (A) 0.7 k/uL (1.0-4.8); Lymphocytes % (A) 9 %; MCH 26.7 pg (25.0-35.0); MCHC 30.9 g/dL (31.0-37.0); MCV 86.4 fL (80.0-100.0); Mean Platelet Volume 8.1; Monocytes # (A) 0.6 k/uL (0-1.0); Monocytes % (A) 7 %; Neutrophils # (A) 6.8 k/uL (1.3-7.7); Neutrophils % (A) 81 %; Platelet Count 105 k/uL (150-450); RBC 4.76 m/uL (4.30-5.90); RDW 15.1 % (11.5-15.5); WBC 8.4 k/uL (3.8-10.6)
[2018-03-02 07:24] LABS: Anion Gap 9 mmol/L; Blood Urea Nitrogen 31 mg/dL (9-20); Carbon Dioxide 28 mmol/L (22-30); Chloride 103 mmol/L (98-107); Glucose 104 mg/dL (74-99); Sodium 140 mmol/L (137-145)
[2018-03-02 07:34] LABS: Potassium 4.7 mmol/L (3.5-5.1)
[2018-03-02] MEDS: LOSARTAN 50 MG TAB PO SCH (08:33)
[2018-03-02] MEDS: ASPIRIN 81 MG PO SCH (08:33)
[2018-03-02] MEDS: CARVEDILOL 3.125 MG TAB PO SCH ×2 (08:33→17:17)
[2018-03-02] MEDS: FUROSEMIDE 40 MG TAB PO SCH (08:33)
[2018-03-02] MEDS: HEPARIN SODIUM,PORCINE 5,000 UNIT/ML 1 ML VIAL SQ SCH ×2 (08:34→21:11)
[2018-03-02] MEDS: FUROSEMIDE 10 MG/ML 4 ML VIAL IV SCH (12:04)
[2018-03-02] MEDS: DOCUSATE 100 MG CAP PO SCH (14:14)
--- NOTE | 2018-03-02 16:28 | PN ---
PROGRESS NOTE DATE OF SERVICE: 03/02/2018 This 87-year-old gentleman admitted with bilateral leg cellulitis, possible osteomyelitis also. The patient is being closely monitored. No chest pain. No palpitations. No fever. PT/OT evaluation considered. On exam, alert and oriented x3. Pulse 54, blood pressure 110/59, respiration 18, temperature 97.2, pulse ox 97% on room air. HEENT: Conjunctivae normal. NECK: No jugular venous distention. CARDIOVASCULAR SYSTEM: S1, S2 muffled. RESPIRATORY SYSTEM: Breath sounds diminished at the bases. A few scattered rhonchi. ABDOMEN: Soft. LEGS: Bilateral leg ulcers. NERVOUS SYSTEM: No focal deficit. LABS: WBC 8.2, hemoglobin 12.7. ASSESSMENT: 1. Bilateral leg ulcers, possible venous ulcers with cellulitis with failure of outpatient treatment with possible osteomyelitis. 2. Peripheral vascular disease. 3. Thrombocytopenia. 4. History of atrial fibrillation. 5. History of coronary artery disease. 6. Hypertension. 7. Hyperlipidemia. 8. History of myocardial infarction. RECOMMENDATIONS AND DISCUSSION: I recommend to continue current medication, continue symptomatic treatment, broad- spectrum IV antibiotics. Infectious Disease is following the patient closely. Review the films with Radiology to rule out the possibility of any osteomyelitis. If it is osteomyelitis, the patient will require long-term antibiotics and continued monitoring. Further recommendations to follow. MMODL / IJN: [id number] /
[2018-03-02] MEDS: SODIUM CHLORIDE 0.9% 1,000 ML IV SCH (19:47)
[2018-03-02] MEDS: ATORVASTATIN 20 MG TAB PO SCH (21:11)
[2018-03-02 21:31] VITALS: TEMP 97.6
[2018-03-02] MEDS: VANCOMYCIN 1,250 MG in SODIUM CHLORIDE 0.9% 250 ML IVPB SCH (23:06)
--- NOTE | 2018-03-02 23:16 | PN ---
PROGRESS NOTE DATE OF SERVICE: 03/02/2018 REASON FOR FOLLOWUP: Bilateral lower extremity venous stasis ulcer with cellulitis and questionable osteomyelitis. INTERVAL HISTORY: The patient is afebrile. He has been breathing comfortably. He denies having any chest pain or shortness of breath or cough. He did complain of pain towards his wound on the posterior leg area. He has no significant drainage from it. Denies having any chest pain, shortness of breath or cough. PHYSICAL EXAMINATION: Blood pressure is 120/64, pulse of 52, temperature 97.6. He is 98% on 2 L nasal cannula. General description is an elderly male up in the bed in no distress. RESPIRATORY SYSTEM: Unlabored breathing, clear to auscultation anteriorly. HEART: S1, S2. Regular rate and rhythm rate and rhythm. ABDOMEN: Soft, no tenderness. EXTREMITIES: Bilateral lower extremity wounds, venous stasis ulcer looks superficial with no significant slough tissue. Minimal surrounding erythema of the wound on the ankle area, does not look deep enough to be suspicious for underlying osteomyelitis. LABS: Hemoglobin is 12.7 with a white count of 8.4, BUN of 31, creatinine 0.84. DIAGNOSTIC IMPRESSION AND PLAN: Patient with bilateral lower extremity venous stasis ulcer with subsequent colitis. The patient x-rays and the bone scan was reviewed with Dr. Salazar. The cause for osteo has been mostly soft as we did not see any bony changes on the ankle area and the wounds are not deep. Hence, we will hold on any PICC line. We will keep the patient on vancomycin and finish therapy with possible oral antibiotic. This was discussed in detail with Dr. Martinez to which the patient is known. I will continue to monitor him closely. Continue supportive care. MMODL / IJN: [id number] /
[2018-03-03] MEDS: HYDROcodone/APAP 5-325MG 1 EACH TAB PO PRN ×3 (04:34→14:26)
[2018-03-03] MEDS: ASPIRIN 81 MG PO SCH (07:35)
[2018-03-03] MEDS: CARVEDILOL 3.125 MG TAB PO SCH (07:35)
[2018-03-03] MEDS: DOCUSATE 100 MG CAP PO SCH (07:35)
[2018-03-03] MEDS: FUROSEMIDE 10 MG/ML 4 ML VIAL IV SCH (07:35)
[2018-03-03] MEDS: HEPARIN SODIUM,PORCINE 5,000 UNIT/ML 1 ML VIAL SQ SCH (07:35)
[2018-03-03] MEDS: LOSARTAN 50 MG TAB PO SCH (07:36)
[2018-03-03 07:47] VITALS: BP 131/67
[2018-03-03 07:50] VITALS: PULSE 52; RESP 18
[2018-03-03 08:24] LABS: Anion Gap 11 mmol/L; Blood Urea Nitrogen 35 mg/dL (9-20); Calcium 9.7 mg/dL (8.4-10.2); Carbon Dioxide 31 mmol/L (22-30); Chloride 99 mmol/L (98-107); Glucose 109 mg/dL (74-99); Potassium 4.7 mmol/L (3.5-5.1); Sodium 141 mmol/L (137-145)
[2018-03-03 08:39] LABS: Basophils # (A) 0.1 k/uL (0-0.2); Basophils % (A) 1 %; Eosinophils # (A) 0.2 k/uL (0-0.7); Eosinophils % (A) 2 %; HCT 47.7 % (39.0-53.0); HGB 14.4 gm/dL (13.0-17.5); Hypochromasia Moderate; Lymphocytes # (A) 1.4 k/uL (1.0-4.8); Lymphocytes % (A) 15 %; MCH 26.2 pg (25.0-35.0); MCHC 30.2 g/dL (31.0-37.0); MCV 86.7 fL (80.0-100.0); Mean Platelet Volume 9.2; Monocytes # (A) 0.5 k/uL (0-1.0); Monocytes % (A) 6 %; Neutrophils # (A) 6.7 k/uL (1.3-7.7); Neutrophils % (A) 75 %; Platelet Count 117 k/uL (150-450); RDW 15.5 % (11.5-15.5)
--- NOTE | 2018-03-03 16:41 | PN ---
PROGRESS NOTE DATE OF SERVICE: 03/03/2018. REASON FOR FOLLOWUP: Bilateral lower extremity venostasis ulcers and cellulitis. INTERVAL HISTORY: The patient was seen on rounds this morning. The patient has been afebrile, has been breathing comfortably. Denies having any chest pain or shortness of breath or cough. Some pain in bilateral leg wound areas but no significant drainage. PHYSICAL EXAMINATION: Blood pressure 131/67, pulse of 51, temperature 97.6. He is 93% on 2 L nasal cannula. General description is an elderly male up in the bed in no distress. RESPIRATORY SYSTEM: Unlabored breathing. Clear to auscultation anteriorly. HEART: S1, S2. Regular rate and rhythm. ABDOMEN: Soft. No tenderness. Legs are currently wrapped up.. No obvious drainage on the dressing. LABS: White count 9.0 with a BUN of 35, creatinine 0.77. Wound culture with MRSA. Blood culture has been negative. DIAGNOSTIC IMPRESSION AND PLAN: Patient with bilateral lower extremity venostasis ulcers and cellulitis. Clinically doubt underlying osteomyelitis. Recommend a short course of oral doxycycline 100 mg b.i.d. for another 7 days. Local wound care to continue with Aquacel Silver dressing with close outpatient followup. Prescription sent to the pharmacy. MMODL / IJN: [id number] /
--- NOTE | 2018-03-04 07:36 | DS ---
DISCHARGE SUMMARY DATE OF SERVICE: 03/03/2018 FINAL DIAGNOSES: 1. Bilateral leg ulcers, possible venous ulcer, cellulitis with failure of outpatient treatment with Methicillin-resistant Staphylococcus aureus. 2. Osteomyelitis clinically unlikely per Infectious Disease Dr. Tai. 3. Peripheral vascular disease. 4. Thrombocytopenia. 5. History of atrial fibrillation. 6. Coronary artery disease. 7. Hypertension. 8. Hyperlipidemia. 9. History of myocardial infarction. DISCHARGE DISPOSITION: Patient is being discharged in stable condition with guarded prognosis. HISTORY OF PRESENT ILLNESS: This 87 -year-old gentleman with past medical history of multiple medical problems presented with bilateral ulcers, venous insufficiency with failure of outpatient treatment. Patient was seen in consultation with Infectious Disease and even though the bone scan suggested possible osteomyelitis, clinically Dr. Tai felt that the ulcers were superficial and recommend p.o. antibiotics. The cultures showed MRSA. DISCHARGE ADVICE AND MEDICATIONS: 1. Diet is cardiac diet. 2. Activity limited until followup. 3. Follow up with Dr. Clarence Hallman to 1-2 days. 4. Follow up with Dr. Tai as advised. MEDICATIONS: 1. Aspirin 81 mg p.o. daily. 2. Coreg 3.125 mg p.o. b.i.d. 3. Doxycycline 100 mg p.o. b.i.d. for 1 week. 4. Lasix 40 mg p.o. daily and 20 mg q.h.s. 5. [place] 5 mg q.4h p.r.n. 6. Cozaar 100 mg p.o. daily. 7. Zocor 40 mg q.h.s. Once again, the patient discharged in stable condition with guarded prognosis. MMODL / IJN: [id number] /
== END 2018-03-03 15:27 | disposition home health service (06) | DRG 603 ==
LOC: EC 14:26 → 5MS5E 16:54
PROVIDERS: ADMIT Internal Medicine; ATTEND Internal Medicine
DX: L03.115 Cellulitis of right lower limb (principal); L97.919 Non-pressure chronic ulcer of unspecified part of right lower leg with unspecified severity; L97.929 Non-pressure chronic ulcer of unspecified part of left lower leg with unspecified severity; L03.116 Cellulitis of left lower limb; D69.6 Thrombocytopenia, unspecified; E78.5 Hyperlipidemia, unspecified; I11.0 Hypertensive heart disease with heart failure; I25.10 Atherosclerotic heart disease of native coronary artery without angina pectoris; I25.5 Ischemic cardiomyopathy; I50.9 Heart failure, unspecified; I48.91 Unspecified atrial fibrillation; I70.248 Atherosclerosis of native arteries of left leg with ulceration of other part of lower leg; I70.238 Atherosclerosis of native arteries of right leg with ulceration of other part of lower leg; I87.2 Venous insufficiency (chronic) (peripheral); J44.9 Chronic obstructive pulmonary disease, unspecified; M06.9 Rheumatoid arthritis, unspecified; M19.90 Unspecified osteoarthritis, unspecified site; B95.62 Methicillin resistant Staphylococcus aureus infection as the cause of diseases classified elsewhere; I25.2 Old myocardial infarction; Z79.82 Long term (current) use of aspirin; Z82.3 Family history of stroke; Z82.49 Family history of ischemic heart disease and other diseases of the circulatory system; Z90.49 Acquired absence of other specified parts of digestive tract; Z95.1 Presence of aortocoronary bypass graft; Z95.810 Presence of automatic (implantable) cardiac defibrillator; Z79.891 Long term (current) use of opiate analgesic; Z79.899 Other long term (current) drug therapy
CPT/HCPCS: 36415; 71045; 78315; 80048; 80053; 83605; 85025; 85610; 85730; 87040; 87070; 87077; 87186; 87205; 93005; 96374; 99285

== ENCOUNTER 2018-04-02 17:06 | Inpatient (IN) | payer MEDICARE ==
[2018-04-02 18:09] LABS: Anisocytosis Slight; Basophils % (A) 0 %; Eosinophils # (A) 0.2 k/uL (0-0.7); Eosinophils % (A) 2 %; HCT 41.6 % (39.0-53.0); HGB 13.2 gm/dL (13.0-17.5); Hypochromasia Slight; Lymphocytes # (A) 1.6 k/uL (1.0-4.8); Lymphocytes % (A) 19 %; MCH 26.8 pg (25.0-35.0); MCHC 31.7 g/dL (31.0-37.0); MCV 84.5 fL (80.0-100.0); Mean Platelet Volume 8.1; Monocytes # (A) 0.4 k/uL (0-1.0); Monocytes % (A) 5 %; Neutrophils % (A) 72 %; RBC 4.92 m/uL (4.30-5.90); RDW 16.7 % (11.5-15.5); WBC 8.3 k/uL (3.8-10.6)
[2018-04-02 18:13] LABS: ALT 39 U/L (21-72); AST 47 U/L (17-59); Alkaline Phosphatase 270 U/L (38-126); Anion Gap 9 mmol/L; Blood Urea Nitrogen 29 mg/dL (9-20); Calcium 9.1 mg/dL (8.4-10.2); Carbon Dioxide 24 mmol/L (22-30); Chloride 111 mmol/L (98-107); Glucose 99 mg/dL (74-99); INR 1.2 (<1.2); Partial Thromboplastin Time 26.1 sec (22.0-30.0); Potassium 4.3 mmol/L (3.5-5.1); Prothrombin Time 11.3 sec (9.0-12.0); Sodium 144 mmol/L (137-145); Total Bilirubin 1.4 mg/dL (0.2-1.3)
--- NOTE | 2018-04-02 18:20 | XR ---
EXAMINATION TYPE: XR chest 2V DATE OF EXAM: 04/02/2018 COMPARISON: 03/01/2018 INDICATION: Weakness TECHNIQUE: Frontal and lateral views of the chest are obtained. FINDINGS: The heart size is mildly prominent. The pulmonary vasculature is normal. Bibasilar infiltrates are present. These appear worse than the comparison study.. Pacemaker overlies left chest. Sternotomy wires are in the midline. Chronic rotator cuff tears are pr esent bilaterally. IMPRESSION: 1. Cardiomegaly. 2. Bibasilar infiltrates which appear worse than the comparison study. Correlate for atelectasis or p neumonia.
--- NOTE | 2018-04-02 18:22 | XR ---
EXAMINATION TYPE: XR pelvis AP view DATE OF EXAM: 04/02/2018 COMPARISON: NONE HISTORY: Pain TECHNIQUE: AP pelvis FINDINGS: Degenerative changes are noted in the lumbar disc spaces. Femoral heads articulate with the acetabulum. Symphysis pubis and sacroiliac joints appear intact. Normal bowel gas is present. Vascul ar calcification is noted. IMPRESSION: 1. Degenerative changes. No acute osseous abnormality is evident.
[2018-04-02] MEDS ORDERED: MORPHINE SULFATE 4 MG/ML SYRINGE IVP STA (18:23)
--- NOTE | 2018-04-02 18:23 | XR ---
EXAMINATION TYPE: XR lumbar spine 2 or 3V DATE OF EXAM: 04/02/2018 COMPARISON: NONE HISTORY: Back pain TECHNIQUE: Lumbar spine is examined in 3 projections. FINDINGS: Degenerative disc changes and loss of disc height throughout the lumbar spine. Vacuum disc phenomenon is noted L5-S1 and L2-L3. Note is made of vascular calcification within the aorta Spondylosis is present. Scoliosis is present with a convexity to left centered at approximately L3. IMPRESSION: 1. Scoliosis. 2. Advanced degenerative disc changes throughout the lumbar spine
[2018-04-02 18:29] LABS: Creatine Kinase MB 1.6 ng/mL (0.0-2.4); Troponin I 0.03 ng/mL (0.000-0.034)
--- NOTE | 2018-04-02 18:31 | ED ---
General Adult HPI - General Chief complaint: Shortness of Breath Stated complaint: Weakness Time Seen by Provider: 04/02/18 17:10 Source: patient, EMS, RN notes reviewed, old records reviewed Mode of arrival: EMS Limitations: no limitations - History of Present Illness Initial comments: 87-year-old male presents from home with worsening generalized weakness and dyspnea. Patient has been in and out of nursing homes over the past several months. According to family members he has been unable to get out of bed today. He is seen by home care nursing for chronic venous stasis and ulcers in the bilateral lower extremities. According to the patient is breathing has been worse over the past 24 hours. Denies central chest pain. Denies fever but has had chills. He has not eaten in the past 24 hours. No abdominal pain. No vomiting or diarrhea. Patient has been incontinent of urine secondary to immobility - Related Data Home Medications Medication Instructions Recorded Confirmed Furosemide [Lasix] 20 mg PO HS@1600 02/28/18 02/28/18 HYDROcodone/APAP 5-325MG [[place] 1 tab PO Q4H PRN 02/28/18 02/28/18 5-325] Simvastatin [Zocor] 40 mg PO HS 02/28/18 02/28/18 Previous Rx's Medication Instructions Recorded Aspirin 81 mg PO DAILY chew 03/16/17 Carvedilol [Coreg] 3.125 mg PO BID-W/MEALS #60 tab 04/18/17 Furosemide [Lasix] 40 mg PO DAILY #30 tab 04/18/17 Losartan Potassium [Cozaar] 100 mg PO DAILY #30 tab 04/18/17 Doxycycline Monohydrate [Monodox] 100 mg PO Q12HR #14 cap 03/03/18 Allergies Allergy/AdvReac Type Severity Reaction Status Date / Time No Known Allergies Allergy Verified 02/28/18 15:15 Review of Systems ROS Statement: Those systems with pertinent positive or pertinent negative responses have been documented in the HPI. ROS Other: All systems not noted in ROS Statement are negative. Past Medical History Past Medical History: Atrial Fibrillation, Coronary Artery Disease (CAD), Chest Pain / Angina, Heart Failure, Hyperlipidemia, Hypertension, Myocardial Infarction (LA), Osteoarthritis (OA), Pneumonia, Rheumatoid Arthritis (RA), Skin Disorder, Vascular Disorder Additional Past Medical History / Comment(s): has had chronic leg wounds-seen before at [facility]. pt stated he currently has sores on both legs.past falls, uses walker/cane, chronic back pain,, ischemic cardiomyopathy. Pulmonary edema 6- 2016, [facility] Last Myocardial Infarction Date:: 1989 History of Any Multi-Drug Resistant Organisms: MRSA Date of last positivie culture/infection: 02/28/18 MDRO Source:: LEFT LEG Past Surgical History: AICD, Back Surgery, Bowel Resection, Coronary Bypass/CABG , Heart Catheterization, Hernia Repair, Tonsillectomy Additional Past Surgical History / Comment(s): small bowel resection for history of small bowel obstruction, yessy inguinal hernia repair, 5 vessel CABG in 1989 at [facility], back surgery x3, AICD placement/had generator change in 2014, back surgery, previous history of bowel resection, tonsillectomy, hernia repair Past Anesthesia/Blood Transfusion Reactions: No Reported Reaction Type of Cardiac Device: AICD Device Placement Date:: May 19, 2015 Past Psychological History: No Psychological Hx Reported Smoking Status: Never smoker - Past Family History Father Family Medical History: Coronary Artery Disease (CAD) Additional Family Medical History / Comment(s): of heart attack age 86 Mother Additional Family Medical History / Comment(s): age 77 of stroke or heart attack General Exam Limitations: no limitations General appearance: alert, in no apparent distress Eye exam: Present: normal appearance, PERRL ENT exam: Present: mucous membranes dry Neck exam: Present: normal inspection. Absent: tenderness, meningismus Respiratory exam: Present: rhonchi (Bilateral rhonchi). Absent: respiratory distress Cardiovascular Exam: Present: bradycardia, irregular rhythm GI/Abdominal exam: Present: soft. Absent: distended, tenderness, guarding Extremities exam: Present: other (Chronic venous stasis with erythema and multiple ulcers) Neurological exam: Present: alert, oriented X3. Absent: motor sensory deficit Psychiatric exam: Present: normal affect, normal mood Skin exam: Present: warm, dry Course Vital Signs 04/02/18 04/02/18 04/02/18 17:07 17:47 18:42 Temperature 98.8 F Pulse Rate 76 49 L 61 Respiratory 22 22 18 Rate Blood Pressure 115/59 118/85 146/66 O2 Sat by Pulse 92 L 96 98 Oximetry EKG Findings - EKG Comments: EKG Findings:: EKG: Bradycardic baseline with frequent paced complexes and PVC, right bundle, left anterior fascicular block. Rate of 71, ND interval 136, QRS duration 156, QTC 521. Medical Decision Making - Medical Decision Making 87-year-old male presenting with dyspnea and generalized weakness. Patient is rhonchorous bilaterally. Chest x-ray reveals bibasilar infiltrate suggestive of pneumonia. Patient has had recent hospital admission, he will be treated for healthcare associated pneumonia. Patient did have pain complaints in the pelvis and lumbar spine, these x-rays are obtained and are negative for any acute bony abnormalities. White blood cell count is normally 0.3, hemoglobin stable. Patient also has a significantly elevated BNP at 8700. He does have history of heart failure. He will be treated for heart failure exacerbation as well. - Lab Data Result diagrams: 04/02/18 17:40 04/02/18 17:40 Lab Results 04/02/18 04/02/18 04/02/18 Range/Units 17:40 17:40 17:40 WBC 8.3 (3.8-10.6) k/uL RBC 4.92 (4.30-5.90) m/uL Hgb 13.2 (13.0-17.5) gm/dL Hct 41.6 (39.0-53.0) % MCV 84.5 (80.0-100.0) fL MCH 26.8 (25.0-35.0) pg MCHC 31.7 (31.0-37.0) g/dL RDW 16.7 H (11.5-15.5) % Plt Count 91 L (150-450) k/uL Neutrophils % 72 % Lymphocytes % 19 % Monocytes % 5 % Eosinophils % 2 % Basophils % 0 % Neutrophils # 6.0 (1.3-7.7) k/uL Lymphocytes # 1.6 (1.0-4.8) k/uL Monocytes # 0.4 (0-1.0) k/uL Eosinophils # 0.2 (0-0.7) k/uL Basophils # 0.0 (0-0.2) k/uL Manual Slide Review Performed Hypochromasia Slight Anisocytosis Slight PT (9.0-12.0) sec INR (<1.2) APTT (22.0-30.0) sec Sodium 144 (137-145) mmol/L Potassium 4.3 (3.5-5.1) mmol/L Chloride 111 H (98-107) mmol/L Carbon Dioxide 24 (22-30) mmol/L Anion Gap 9 mmol/L BUN 29 H (9-20) mg/dL Creatinine 0.70 (0.66-1.25) mg/dL Est GFR (CKD-EPI)AfAm >90 (>60 ml/min/1.73 sqM) Est GFR (CKD-EPI)NonAf 86 (>60 ml/min/1.73 sqM) Glucose 99 (74-99) mg/dL Plasma Lactic Acid Daniel (0.7-2.0) mmol/L Calcium 9.1 (8.4-10.2) mg/dL Magnesium 2.0 (1.6-2.3) mg/dL Total Bilirubin 1.4 H (0.2-1.3) mg/dL AST 47 (17-59) U/L ALT 39 (21-72) U/L Alkaline Phosphatase 270 H (38-126) U/L Total Creatine Kinase 33 L (55-170) U/L CK-MB (CK-2) 1.6 (0.0-2.4) ng/mL CK-MB (CK-2) Rel Index 4.8 Troponin I 0.030 (0.000-0.034) ng/mL NT-Pro-B Natriuret Pep pg/mL Total Protein 6.0 L (6.3-8.2) g/dL Albumin 3.0 L (3.5-5.0) g/dL 04/02/18 04/02/18 04/02/18 Range/Units 17:40 17:40 17:40 WBC (3.8-10.6) k/uL RBC (4.30-5.90) m/uL Hgb (13.0-17.5) gm/dL Hct (39.0-53.0) % MCV (80.0-100.0) fL MCH (25.0-35.0) pg MCHC (31.0-37.0) g/dL RDW (11.5-15.5) % Plt Count (150-450) k/uL Neutrophils % % Lymphocytes % % Monocytes % % Eosinophils % % Basophils % % Neutrophils # (1.3-7.7) k/uL Lymphocytes # (1.0-4.8) k/uL Monocytes # (0-1.0) k/uL Eosinophils # (0-0.7) k/uL Basophils # (0-0.2) k/uL Manual Slide Review Hypochromasia Anisocytosis PT 11.3 (9.0-12.0) sec INR 1.2 H (<1.2) APTT 26.1 (22.0-30.0) sec Sodium (137-145) mmol/L Potassium (3.5-5.1) mmol/L Chloride (98-107) mmol/L Carbon Dioxide (22-30) mmol/L Anion Gap mmol/L BUN (9-20) mg/dL Creatinine (0.66-1.25) mg/dL Est GFR (CKD-EPI)AfAm (>60 ml/min/1.73 sqM) Est GFR (CKD-EPI)NonAf (>60 ml/min/1.73 sqM) Glucose (74-99) mg/dL Plasma Lactic Acid Daniel 1.1 (0.7-2.0) mmol/L Calcium (8.4-10.2) mg/dL Magnesium (1.6-2.3) mg/dL Total Bilirubin (0.2-1.3) mg/dL AST (17-59) U/L ALT (21-72) U/L Alkaline Phosphatase (38-126) U/L Total Creatine Kinase (55-170) U/L CK-MB (CK-2) (0.0-2.4) ng/mL CK-MB (CK-2) Rel Index Troponin I (0.000-0.034) ng/mL NT-Pro-B Natriuret Pep 8780 pg/mL Total Protein (6.3-8.2) g/dL Albumin (3.5-5.0) g/dL Disposition Clinical Impression: Congestive heart failure, Healthcare-associated pneumonia, Failure to thrive Disposition: ADMITTED IP TO THIS [facility] Condition: Stable Is patient prescribed a controlled substance at d/c from ED?: No Referrals: Clarence Hallman MD [Primary Care Provider] - 1-2 days Decision to Admit Reason: Admit from EC Decision Date: 04/02/18 Decision Time: 19:19
[2018-04-02 19:13] LABS: Platelet Count 91 k/uL (150-450)
[2018-04-02] MEDS ORDERED: CEFEPIME 2 GM in SODIUM CHLORIDE 0.9% 50 ML IVPB STA (19:14)
[2018-04-02] MEDS ORDERED: FUROSEMIDE 10 MG/ML 4 ML VIAL IV STA (19:15)
[2018-04-02] MEDS ORDERED: VANCOMYCIN IV PER PHARMACY 1 EACH MISC MISCELLANE PRN (19:15)
[2018-04-02] MEDS ORDERED: MORPHINE SULFATE 4 MG/ML SYRINGE IV PRN (19:19)
[2018-04-02] MEDS ORDERED: ACETAMINOPHEN TAB 325 MG TAB PO PRN (19:19)
[2018-04-02] MEDS ORDERED: VANCOMYCIN 1,250 MG in SODIUM CHLORIDE 0.9% 250 ML IVPB STA (19:19)
[2018-04-02] MEDS ORDERED: NALOXONE 0.4 MG/ML 1 ML VIAL IV PRN (19:19)
--- NOTE | 2018-04-02 21:29 | HP ---
HISTORY AND PHYSICAL I am covering for Dr. Clarence Hallman. 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 Clarence Hallman in the outpatient setting was complaining of significant bilateral leg weakness. The patient the patient was also seen by ID, Dr. Tai. Because of increasing weakness and difficulty, the patient came to [facility] and was admitted for further evaluation and treatment. There is no history of fever, rigors or chills. No history of headache, loss of consciousness, seizures. PAST MEDICAL HISTORY: Atrial fibrillation, CAD, CHF, hypertension, hyperlipidemia, history of myocardial infarction, rheumatoid arthritis. MEDICATIONS: Prior to admission include home medications are: 1. Zocor 40 mg at bedtime. 2. Cozaar 100 mg. 3. [place] 5 mg q.4h p.r.n. 4. Lasix 40 mg daily and 20 mg q.h.s. 5. Doxycycline 100 mg p.o. b.i.d. 6. Coreg 3.125 mg p.o. b.i.d. 7. Aspirin 81 mg p.o. daily. ALLERGIES: None. FAMILY HISTORY: History of CAD in the family. SOCIAL HISTORY: No history of smoking. No history of alcohol intake. REVIEW OF SYSTEMS: ENT: Diminished hearing and vision. CARDIOVASCULAR: No angina or palpitations. Respiration: No cough. No hemoptysis. GI no nausea or vomiting. no dysuria or hematuria. Nervous System: No numbness or weakness. ALLERGY/IMMUNOLOGY: No asthma or hayfever. Musculoskeletal: As mentioned earlier. Hematology/Oncology: No history of anemia. Endocrine: No history of diabetes or hypothyroidism. Constitutional: As mentioned earlier. Dermatology: Negative. Rheumatology: Negative. Psychiatry: As mentioned earlier. PHYSICAL EXAMINATION: GENERAL: Alert and oriented times three. Pulse is 76. Blood pressure 115/59, respiration 22, temperature 98.8, pulse ox 98% on room air. HEENT: Conjunctivae normal. Oral mucosa moist. NECK is no jugular venous distention. No carotid bruit. No lymph node enlargement. CARDIOVASCULAR: S1-S2 muffled. Ejection systolic murmur. RESPIRATORY: Breath sounds diminished in the bases. Scattered rhonchi. ABDOMEN: Soft, nontender. No mass palpable. LEGS: Bilateral leg edema and bilateral leg cellulitis also present. NERVOUS SYSTEM: Higher functions as mentioned earlier, mild diffuse weakness and wasting also present. LYMPHATICS: No lymph nodes palpable in the neck, axillae or groin. SKIN: No ulcer, rash or bleeding. LAB STUDIES: At this time shows CBC within normal limits. INR 1.2 and alkaline phosphatase is 270. Albumin is 3. ASSESSMENT: 1. Generalized weakness and tiredness, multifactorial. 2. Bilateral leg ulcers, possible venous stenosis with cellulitis and failure of outpatient treatment. 3. History of Methicillin-resistant Staphylococcus aureus from the ulcers. 4. History of previous osteomyelitis, unlikely from previous of peripheral vascular disease. 5. Emaciation with mild to moderate protein calorie malnutrition BMI of 19.2. 6. Atrial fibrillation. 7. History of coronary artery disease. 8. History of congestive heart failure. 9. Hypertension. 10.Hyperlipidemia. 11.History of myocardial infarction. 12.History of degenerative joint disease. 13.History rheumatoid arthritis. 14.History of chronic leg wounds. 15.History of AICD. 16.History of coronary artery disease, coronary artery bypass grafting. RECOMMENDATIONS AND DISCUSSION: In this 87-year-old gentleman who presented with multiple complex medical issues , we will monitor the patient closely. Continue the current medications, continue symptomatic treatment. PT/OT evaluation. Resume the home medications. Possible ECF rehab. I would also recommend evaluation by Dr. Tai Infectious Disease. Guarded prognosis because of multiple complex medical issues. A copy of dictation being forwarded to Dr. Hallman's who is the primary care physician. MMHARDEEPL / IJN: [id number] / POLO
[2018-04-02] MEDS: FUROSEMIDE 10 MG/ML 4 ML VIAL IV SCH (21:47)
[2018-04-02] MEDS: ATORVASTATIN 20 MG TAB PO SCH (21:47)
[2018-04-02 22:24] LABS: Appearance,Urine Clear (Clear); Bilirubin,Urine Negative (Negative); Blood,Urine Negative (Negative); Color,Urine Yellow; Glucose,Urine (UA) Negative (Negative); Ketones,Urine Negative (Negative); Leukocyte Esterase,Urine Negative (Negative); Nitrite,Urine Negative (Negative); Protein,Urine Negative (Negative); Specific Gravity,Urine 1.008 (1.001-1.035)
--- NOTE | 2018-04-03 00:44 | XR ---
EXAMINATION TYPE: XR chest 1V portable DATE OF EXAM: 04/03/2018 COMPARISON: 04/02/2018 HISTORY: Short of breath TECHNIQUE: Single frontal view of the chest is obtained. FINDINGS: Heart is enlarged. There is probably vascular congestion. Thoracic aorta is atheromatous. There is blunting of costophrenic angles. There is left axillary pacemaker with the lead tip over the right ventricle. There are sternal wires. IMPRESSION: Congestive heart failure with pleural effusions. Fluid and congestion are increased comp ared to yesterday. Lower lobe pneumonia is possible.
[2018-04-03] MEDS: CARVEDILOL 3.125 MG TAB PO SCH ×2 (06:38→19:41)
[2018-04-03] MEDS: ASPIRIN 81 MG PO SCH (08:34)
[2018-04-03] MEDS: LOSARTAN 50 MG TAB PO SCH (08:34)
[2018-04-03] MEDS: FUROSEMIDE 10 MG/ML 4 ML VIAL IV SCH ×3 (08:34→23:09)
[2018-04-03] MEDS: VANCOMYCIN 1,000 MG in SODIUM CHLORIDE 0.9% 250 ML IVPB SCH ×2 (11:51→20:05)
--- NOTE | 2018-04-03 12:20 | P.CNPUL ---
History of Present Illness Consult date: 04/03/18 Requesting physician: Della Dee Reason for consult: dyspnea Chief complaint: Generalized weakness, shortness of breath History of present illness: This is an 87-year-old frail, cachectic gentleman who follows with Dr. Hallman as his primary care physician. He has a history of atrial fibrillation, coronary artery disease with previous coronary artery bypass surgery in 1989, ischemic cardiomyopathy status post AICD with most recent generator change 2014, chronic leg ulcers with previous MRSA infections and osteomyelitis and peripheral vascular disease, hypertension, hyperlipidemia, rheumatoid arthritis, bowel resection. He also has a history of pleural calcifications bilaterally suggestive of previous asbestos exposure, pulmonary fibrosis. Lifelong nonsmoker. He presented here to the emergency room yesterday his family members found him with progressive weakness unable to get out of bed and worsening shortness of breath. Chest x-ray reveals evidence of congestive heart failure with bilateral pleural effusions. ProBNP level 8780. No leukocytosis. Afebrile. No tachycardia. No tachypnea. Maintaining O2 saturations in the 90s on 4 L/m per nasal cannula. Review of Systems Eyes: bilateral decreased vision Ears: bilateral: decreased hearing Ears, nose, mouth and throat: Denies headache, Denies sore throat Cardiovascular: Reports decreased exercise tolerance, Reports dyspnea on exertion, Reports edema, Reports irregular heart beat, Reports leg edema, Reports shortness of breath Respiratory: Reports dyspnea Genitourinary: Reports as per HPI Musculoskeletal: Reports as per HPI Musculoskeletal: bilateral: ankle swelling Integumentary: Reports color changes Neurological: Reports balance difficulties Psychiatric: Reports anxiety Endocrine: Denies fatigue, Denies weight change Hematologic/Lymphatic: Reports as per HPI Allergic/Immunologic: Reports as per HPI Past Medical History Past Medical History: Atrial Fibrillation, Coronary Artery Disease (CAD), Chest Pain / Angina, Heart Failure, Hyperlipidemia, Hypertension, Myocardial Infarction ([place]), Osteoarthritis (OA), Pneumonia, Rheumatoid Arthritis (RA), Skin Disorder, Vascular Disorder Additional Past Medical History / Comment(s): has had chronic leg wounds-seen before at [facility]. pt stated he currently has sores on both legs.past falls, uses walker/cane, chronic back pain,, ischemic cardiomyopathy. Pulmonary edema - 2016, [place] Last Myocardial Infarction Date:: 1989 History of Any Multi-Drug Resistant Organisms: MRSA Date of last positivie culture/infection: 02/28/18 MDRO Source:: LEFT LEG Past Surgical History: AICD, Back Surgery, Bowel Resection, Coronary Bypass/CABG , Heart Catheterization, Hernia Repair, Tonsillectomy Additional Past Surgical History / Comment(s): small bowel resection for history of small bowel obstruction, yessy inguinal hernia repair, 5 vessel CABG in 1989 at [facility], back surgery x3, AICD placement/had generator change in 2014, back surgery, previous history of bowel resection, tonsillectomy, hernia repair Past Anesthesia/Blood Transfusion Reactions: No Reported Reaction Type of Cardiac Device: AICD Device Placement Date:: May 19, 2015 Past Psychological History: No Psychological Hx Reported Additional Psychological History / Comment(s): . lives in the family home with his . He has been using a wheeled walker or cane He has visiting physician. He is a lifelong nonsmoker. 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 He has no experience. He has no international travel. There are no pet exposures in the home. He has a total of 12 children, and they apparently have good health. Smoking Status: Never smoker Past Alcohol Use History: None Reported Past Drug Use History: None Reported - Past Family History Father Family Medical History: Coronary Artery Disease (CAD) Additional Family Medical History / Comment(s): of heart attack age 86 Mother Additional Family Medical History / Comment(s): age 77 of stroke or heart attack Medications and Allergies Home Medications Medication Instructions Recorded Confirmed Type Aspirin 81 mg PO DAILY chew 03/16/17 04/02/18 Rx Carvedilol [Coreg] 3.125 mg PO BID-W/MEALS #60 tab 04/18/17 04/02/18 Rx Furosemide [Lasix] 40 mg PO DAILY #30 tab 04/18/17 04/02/18 Rx Losartan Potassium [Cozaar] 100 mg PO DAILY #30 tab 04/18/17 04/02/18 Rx Furosemide [Lasix] 20 mg PO HS@1600 02/28/18 04/02/18 History HYDROcodone/APAP 5-325MG [[place] 1 tab PO Q4H PRN 02/28/18 04/02/18 History 5-325] Simvastatin [Zocor] 40 mg PO HS 02/28/18 04/02/18 History Doxycycline Monohydrate [Monodox] 100 mg PO Q12HR #14 cap 03/03/18 Rx Allergies Allergy/AdvReac Type Severity Reaction Status Date / Time No Known Allergies Allergy Verified 02/28/18 15:15 Physical Exam Vitals: Vital Signs Temp Pulse Pulse Resp BP BP Pulse Ox 04/03/18 08:47 92 L 04/03/18 08:00 97.0 F L 62 20 100/52 95 04/03/18 04:00 97.6 F 59 L 20 115/53 91 L 04/02/18 23:00 98.0 F 69 20 136/73 90 L 04/02/18 20:30 97.4 F L 50 L 20 158/75 94 L 04/02/18 19:56 97.6 F 04/02/18 19:43 52 L 18 144/66 98 04/02/18 18:42 61 18 146/66 98 04/02/18 18:00 19 04/02/18 17:47 49 L 22 118/85 96 04/02/18 17:07 98.8 F 76 22 115/59 92 L Intake and Output 04/02/18 04/03/18 04/03/18 22:59 06:59 14:59 Intake Total 300 240 Output Total 1100 1900 Balance -800 -1900 240 Intake: Oral 300 240 Output: Urine 1100 1900 Other: Voiding Method Urinal Urinal # Bowel Movements 0 0 Weight 66.5 kg 66.5 kg GENERAL EXAM: Frail, cachectic. Alert, comfortable in no apparent distress. HEAD: Normocephalic. EYES: Normal reaction of pupils, equal size. NOSE: Clear with pink turbinates. THROAT: No erythema or exudates. NECK: No masses, no JVD. CHEST: No chest wall deformity. LUNGS: Equal air entry with no crackles, wheeze, rhonchi or dullness. CVS: S1 and S2 normal with no audible murmur, regular rhythm. ABDOMEN: No hepatosplenomegaly, normal bowel sounds, no guarding or rigidity. SPINE: Kyphoscoliosis SKIN: Cellulitis lower extremities CENTRAL NERVOUS SYSTEM: No focal deficits, tone is normal in all 4 extremities. EXTREMITIES: There are changes of chronic venous stasis. Results - Laboratory Findings CBC and BMP: 04/02/18 17:40 04/02/18 17:40 PT/INR, D-dimer PT 11.3 sec (9.0-12.0) 04/02/18 17:40 INR 1.2 (<1.2) H 04/02/18 17:40 Abnormal lab findings: Abnormal Labs 04/02/18 04/02/18 04/02/18 17:40 17:40 17:40 RDW 16.7 H Plt Count 91 L INR Chloride 111 H BUN 29 H Total Bilirubin 1.4 H Alkaline Phosphatase 270 H Total Creatine Kinase 33 L Total Protein 6.0 L Albumin 3.0 L 04/02/18 17:40 RDW Plt Count INR 1.2 H Chloride BUN Total Bilirubin Alkaline Phosphatase Total Creatine Kinase Total Protein Albumin Assessment and Plan Assessment: Impression: #1 Acute on chronic hypoxic respiratory failure secondary to an acute exacerbation of systolic congestive heart failure with a severely impaired left ventricular systolic function less than 20%. #2 Chronic atrial fibrillation. #3 Coronary artery disease with previous coronary artery bypass grafting. #4 Progressive weakness. #5 Cellulitis of the bilateral lower extremities with a history of severe peripheral vascular disease and previous MRSA infection. #6 Hypertension. #7 Hyperlipidemia. #8 Rheumatoid arthritis. #9 Pleural thickening, suspect previous asbestos exposure with pulmonary fibrosis. #10 Poor overall functional performance based on the above-mentioned multiple comorbidities. Plan: The patient was seen and evaluated by Dr. Moore. His chest x-ray and labs were reviewed. He has been diuresed and remains in a negative balance. Infectious disease is on the case. He is currently on vancomycin. We will continue to titrate down the FiO2 to maintain O2 saturations greater than 90%. We'll continue to follow and make further recommendations based on his clinical status. I, the cosigning physician, performed a history & physical examination of the patient. Lungs sounds with crackles in the bilateral posterior bases. Maintaining good O2 saturations in the 90s on 4 L/m per nasal cannula. I discussed the assessment and plan of care with my nurse practitioner, Valencia Mcbride. I attest to the above note as dictated by her. Time with Patient: Greater than 30
[2018-04-03 14:50] VITALS: BMI 21.0
[2018-04-03] MEDS ORDERED: HEPARIN SODIUM,PORCINE 5,000 UNIT/ML 1 ML VIAL IV ONE (16:48)
[2018-04-03] MEDS ORDERED: HEPARIN SODIUM,PORCINE 5,000 UNIT/ML 1 ML VIAL IV PRN (16:48)
[2018-04-03] MEDS ORDERED: HEPARIN SODIUM,PORCINE/D5W PMX 25,000 UNIT in DEXTROSE/WATER 1 500ML.BAG IV SCH (17:30)
[2018-04-03 17:36] LABS: Anisocytosis Slight; Basophils # (A) 0.1 k/uL (0-0.2); Basophils % (A) 1 %; Eosinophils % (A) 0 %; HCT 45.6 % (39.0-53.0); HGB 13.5 gm/dL (13.0-17.5); Hypochromasia Marked; Lymphocytes # (A) 1.6 k/uL (1.0-4.8); Lymphocytes % (A) 13 %; MCH 26.1 pg (25.0-35.0); MCHC 29.6 g/dL (31.0-37.0); MCV 88.2 fL (80.0-100.0); Mean Platelet Volume 8.7; Monocytes # (A) 0.6 k/uL (0-1.0); Monocytes % (A) 5 %; Neutrophils # (A) 9.7 k/uL (1.3-7.7); Neutrophils % (A) 80 %; RBC 5.17 m/uL (4.30-5.90); RDW 16.7 % (11.5-15.5); WBC 12.2 k/uL (3.8-10.6)
[2018-04-03 17:48] LABS: Platelet Count 53 k/uL (150-450)
[2018-04-03 17:52] LABS: INR 1.2 (<1.2); Partial Thromboplastin Time 22.1 sec (22.0-30.0); Prothrombin Time 11.5 sec (9.0-12.0)
[2018-04-03] MEDS: CEFEPIME 2 GM in SODIUM CHLORIDE 0.9% 50 ML IVPB SCH ×2 (18:27→23:09)
[2018-04-03] MEDS: ATORVASTATIN 20 MG TAB PO SCH (20:04)
[2018-04-03 20:45] LABS: Anisocytosis Slight; HCT 42.1 % (39.0-53.0); HGB 12.8 gm/dL (13.0-17.5); Hypochromasia Slight; MCH 26.2 pg (25.0-35.0); MCHC 30.5 g/dL (31.0-37.0); RBC 4.89 m/uL (4.30-5.90); RDW 16.9 % (11.5-15.5); WBC 10.4 k/uL (3.8-10.6)
--- NOTE | 2018-04-03 20:45 | PN ---
PROGRESS NOTE DATE OF SERVICE: 04/03/2028 I am covering for Dr. Clarence Hallman. This 87-year-old gentleman was admitted with generalized weakness and tiredness, multifactorial, also bilateral leg ulcers. The patient is being closely monitored at this time. The patient is unable to ambulate. Dr. Moore has seen the patient today. PT/OT is also evaluating the patient. The patient also had CHF acute exacerbation also. PAST MEDICAL HISTORY: Reviewed. REVIEW OF SYSTEMS: Cardiovascular System: As mentioned earlier. Respiratory: As mentioned earlier. GI: No nausea or vomiting. : No dysuria. Central nervous system: No focal deficits. CURRENT MEDICATIONS ARE: Reviewed include: 1. Tylenol 650 q.6h. 2. Aspirin 81 mg. 3. Lipitor 20 mg. 4. Coreg 3.125 mg b.i.d. 5. Lasix 40 mg IV q.8h. 6. Heparin subcu b.i.d. 7. Cozaar 100 mg p.o. 8. Morphine sulfate. 9. Narcan. 10.Vancomycin. PHYSICAL EXAM: Patient is alert, oriented x3. Pulse is 48, blood pressure 107/59, respiration 18, temperature 97.8, pulse ox 94% on 4 L. HEENT: Conjunctivae normal. Oral mucosa moist. Neck: No jugular venous distention. CARDIOVASCULAR: S1, S2 muffled. RESPIRATORY: Breath sounds diminished in the bases. A few scattered rhonchi and crackles. ABDOMEN: Soft, nontender. No mass palpable. LEGS no edema and no swelling. NERVOUS SYSTEM: Higher functions as mentioned earlier. Moves all 4 limbs. Diffusely weak. LYMPHATICS: No lymph nodes palpable in the neck, axillae or groin. SKIN: No ulcer, rashes or bleeding. LAB STUDIES: Alkaline phosphatase is 270 and troponin is 1.60. ASSESSMENT: 1. Shortness of breath, congestive heart failure acute exacerbation. 2. Troponin 1.[address]-segment elevation myocardial infarction. 3. Possible right lower lobe pneumonia. 4. Generalized weakness and tiredness, multifactorial. 5. Bilateral leg ulcers, possible venous stasis ulcer with cellulitis and failure of outpatient treatment. 6. History of Methicillin-resistant Staphylococcus aureus. 7. History of previous osteomyelitis unlikely from previous reports. 8. Peripheral vascular disease. 9. Emaciation [id number] protein calorie malnutrition. BMI of 19.2. 10.Atrial fibrillation. 11.History of coronary artery disease. 12.Hypertension. 13.Hyperlipidemia. 14.History of myocardial infarction. 15.History of degenerative joint disease. 16.History of rheumatoid arthritis. 17.Chronic leg wounds. 18.History of AICD. 19.History of coronary artery disease, coronary artery bypass grafting. 20.NO CODE, NO CPR, NO VENT. RECOMMENDATIONS AND DISCUSSION: Recommend to continue current medications, management and continue monitoring and symptomatic treatment. Medication reconciliation done. Continue the diuretics. PT/OT evaluation. Otherwise, possible ECF rehab. We will closely follow with Cardiology and Pulmonology and the patient is also on broad-spectrum IV antibiotics also. Repeat labs have been ordered. Cardiology has been consulted. The overall prognosis guarded and discussed with the patient and the patient's family and further recommendations to follow. TYSON / KITA: [id number] /
[2018-04-03 20:46] LABS: Platelet Count 55 k/uL (150-450)
[2018-04-03] MEDS: HYDROcodone/APAP 10-325MG 1 EACH TAB PO PRN (21:02)
--- NOTE | 2018-04-03 21:36 | CONS ---
CONSULTATION This is an 87-year-old elderly patient who has history of ischemic cardiomyopathy, prior bypass surgery and also ICD. He came into the hospital yesterday evening with complaints of generalized weakness, dyspnea and has been in and out of nursing homes over the past several months. According to family member, he was unable to get out of bed and he felt weak and tired. I was asked to see him mainly for congestive heart failure. PAST MEDICAL HISTORY: Remarkable for ischemic heart disease with prior aortocoronary bypass surgery in 1989. He also has history of chronic atrial fibrillation, hypertension, hyperlipidemia, osteoarthritis and ICD placement for ischemic cardiomyopathy in 2015 or so. MEDICATIONS: At home include aspirin 81 mg daily, carvedilol 3.125 mg b.i.d., Lasix 40 mg daily, Cozaar 100 mg daily, simvastatin 40 mg daily, Lasix 20 mg daily, and Robert Lee for pain. No known drug allergies. Chest x-ray that was performed last night suggested congestive heart failure with bilateral pleural effusions and the possibility of lower lobe pneumonia. LABORATORY DATA: Suggests that his initial troponin is normal. BNP is elevated to 8700. His lactate is within normal limits. Renal function is normal. Please refer to the detailed cardiology consultations that are available in the chart. PHYSICAL EXAMINATION: Blood pressure is 107/80, pulse rate is about 50 per minute regular HEENT: Unremarkable. Fundus was not examined by me. NECK: Supple. There is no significant JVD that I can appreciate. HEART: Reveals S1, S2 with a short systolic murmur along left sternal border without any gallops. Heart rate seems irregular. Lungs reveal bilateral diminished air entry. ABDOMEN: Soft, distended. Lower extremities reveal diminished pulses. CENTRAL NERVOUS SYSTEM: Generalized weakness, cannot do a proper ATHLETE MANAGER examination. EKG revealed atrial fib, underlying rhythm, isolated ventricular paced beats. IMPRESSION: 1. Exacerbation of congestive heart failure. 2. Ischemic cardiomyopathy, ejection fraction of less than 25% with an ICD. 3. History of prior aortocoronary bypass surgery. RECOMMENDATIONS: I am recommending that we will continue his current medical regimen. I will place him on Lasix 40 mg IV push every 8 hours and resume his home medications including Cozaar and carvedilol and aspirin 81 mg daily. Based on clinical course I will make further recommendations. Patient's prognosis is quite poor and after due discussion, the patient does not wish to have any aggressive life-saving measures. Therefore, he will be a DNR. Thank you very much for the consult. TYSON / KITA: [id number] /
[2018-04-04] MEDS: HYDROcodone/APAP 10-325MG 1 EACH TAB PO PRN ×3 (03:36→22:38)
[2018-04-04 06:06] LABS: Anisocytosis Slight; Basophils % (A) 0 %; Eosinophils # (A) 0.1 k/uL (0-0.7); Eosinophils % (A) 2 %; HCT 41.9 % (39.0-53.0); HGB 12.9 gm/dL (13.0-17.5); Hypochromasia Slight; Lymphocytes # (A) 1.4 k/uL (1.0-4.8); Lymphocytes % (A) 17 %; MCH 26.6 pg (25.0-35.0); MCHC 30.9 g/dL (31.0-37.0); MCV 86.2 fL (80.0-100.0); Mean Platelet Volume 8.9; Monocytes # (A) 0.5 k/uL (0-1.0); Monocytes % (A) 6 %; Neutrophils # (A) 6.1 k/uL (1.3-7.7); Neutrophils % (A) 73 %; RBC 4.86 m/uL (4.30-5.90); WBC 8.3 k/uL (3.8-10.6)
[2018-04-04 06:11] LABS: INR 1.2 (<1.2); Prothrombin Time 11.9 sec (9.0-12.0)
[2018-04-04 06:22] LABS: Calcium 8.7 mg/dL (8.4-10.2); Potassium 3.6 mmol/L (3.5-5.1)
[2018-04-04 06:30] LABS: Platelet Count 50 k/uL (150-450)
[2018-04-04] MEDS: CEFEPIME 2 GM in SODIUM CHLORIDE 0.9% 50 ML IVPB SCH ×3 (08:09→22:49)
[2018-04-04] MEDS: CARVEDILOL 3.125 MG TAB PO SCH ×2 (08:10→15:38)
[2018-04-04] MEDS: FUROSEMIDE 10 MG/ML 4 ML VIAL IV SCH ×3 (08:10→22:47)
[2018-04-04] MEDS: LOSARTAN 50 MG TAB PO SCH (08:11)
[2018-04-04] MEDS: ASPIRIN 81 MG PO SCH (08:11)
[2018-04-04] MEDS: VANCOMYCIN 1,000 MG in SODIUM CHLORIDE 0.9% 250 ML IVPB SCH (12:11)
--- NOTE | 2018-04-04 12:48 | P.PN ---
Subjective Progress Note Date: 04/04/18 Principal diagnosis: Acute on chronic hypoxic respiratory failure secondary to an acute exacerbation of systolic congestive heart failure. This is an 87-year-old frail, cachectic gentleman who follows with Dr. Hallman as his primary care physician. He has a history of atrial fibrillation, coronary artery disease with previous coronary artery bypass surgery in 1989, ischemic cardiomyopathy status post AICD with most recent generator change 2014, chronic leg ulcers with previous MRSA infections and osteomyelitis and peripheral vascular disease, hypertension, hyperlipidemia, rheumatoid arthritis, bowel resection. He also has a history of pleural calcifications bilaterally suggestive of previous asbestos exposure, pulmonary fibrosis. Lifelong nonsmoker. He presented here to the emergency room yesterday his family members found him with progressive weakness unable to get out of bed and worsening shortness of breath. Chest x-ray reveals evidence of congestive heart failure with bilateral pleural effusions. ProBNP level 8780. No leukocytosis. Afebrile. No tachycardia. No tachypnea. Maintaining O2 saturations in the 90s on 4 L/m per nasal cannula. The patient is seen again today 04/04/2018 in follow-up on the selective care unit. He is a little more awake today as compared to yesterday. He currently denies any worsening shortness of breath. He has a loose nonproductive cough. Maintaining good O2 saturations in the 90s on 2 L/m per nasal cannula. His been afebrile. Hemodynamically stable. Blood cultures revealing no growth to date. White count 8.3. Hemoglobin 12.9. Platelet count 50,000. Creatinine 1.27. His heparin has been discontinued. He remains on vancomycin and cefepime. He continues to diurese well. Currently in a negative balance. Objective - Vital Signs Vital signs: Vital Signs Temp 97.0 F L 04/04/18 11:45 Pulse 54 L 04/04/18 11:45 Resp 18 04/04/18 11:45 BP 127/61 04/04/18 11:45 Pulse Ox 93 L 04/04/18 11:45 Intake & Output 04/03/18 04/04/18 04/04/18 18:59 06:59 18:59 Intake Total 240 480 240 Output Total 1100 Balance 240 -620 240 Weight 66.5 kg 66 kg Intake: Oral 240 480 240 Output: Urine 1100 Other: Voiding Method Urinal Urinal Urinal # Voids 0 # Bowel Movements 0 - Exam GENERAL EXAM: Frail, cachectic. Alert, comfortable in no apparent distress. HEAD: Normocephalic. EYES: Normal reaction of pupils, equal size. NOSE: Clear with pink turbinates. THROAT: No erythema or exudates. NECK: No masses, no JVD. CHEST: No chest wall deformity. LUNGS: Equal air entry with no crackles, wheeze, rhonchi or dullness. CVS: S1 and S2 normal with no audible murmur, regular rhythm. ABDOMEN: No hepatosplenomegaly, normal bowel sounds, no guarding or rigidity. SPINE: Kyphoscoliosis SKIN: Cellulitis lower extremities CENTRAL NERVOUS SYSTEM: No focal deficits, tone is normal in all 4 extremities. EXTREMITIES: There are changes of chronic venous stasis. - Labs CBC & Chem 7: 04/04/18 05:58 04/04/18 05:58 Labs: Abnormal Lab Results - Last 24 Hours (Table) 04/03/18 04/03/18 04/03/18 Range/Units 15:02 17:15 17:15 WBC 12.2 H (3.8-10.6) k/uL Hgb (13.0-17.5) gm/dL MCHC 29.6 L (31.0-37.0) g/dL RDW 16.7 H (11.5-15.5) % Plt Count 53 L (150-450) k/uL Neutrophils # 9.7 H (1.3-7.7) k/uL INR 1.2 H (<1.2) Chloride (98-107) mmol/L BUN (9-20) mg/dL Creatinine (0.66-1.25) mg/dL Troponin I 1.660 H* (0.000-0.034) ng/mL 04/03/18 04/04/18 04/04/18 Range/Units 20:29 05:58 05:58 WBC (3.8-10.6) k/uL Hgb 12.8 L 12.9 L (13.0-17.5) gm/dL MCHC 30.5 L 30.9 L (31.0-37.0) g/dL RDW 16.9 H 17.0 H (11.5-15.5) % Plt Count 55 L 50 L* (150-450) k/uL Neutrophils # (1.3-7.7) k/uL INR 1.2 H (<1.2) Chloride (98-107) mmol/L BUN (9-20) mg/dL Creatinine (0.66-1.25) mg/dL Troponin I (0.000-0.034) ng/mL 04/04/18 Range/Units 05:58 WBC (3.8-10.6) k/uL Hgb (13.0-17.5) gm/dL MCHC (31.0-37.0) g/dL RDW (11.5-15.5) % Plt Count (150-450) k/uL Neutrophils # (1.3-7.7) k/uL INR (<1.2) Chloride 109 H (98-107) mmol/L BUN 42 H (9-20) mg/dL Creatinine 1.27 H (0.66-1.25) mg/dL Troponin I (0.000-0.034) ng/mL Microbiology - Last 24 Hours (Table) 04/02/18 17:40 Blood Culture - Preliminary Blood No Growth after 24 hours Assessment and Plan Assessment: Impression: #1 Acute on chronic hypoxic respiratory failure secondary to an acute exacerbation of systolic congestive heart failure with a severely impaired left ventricular systolic function less than 20%. #2 Chronic atrial fibrillation. #3 Coronary artery disease with previous coronary artery bypass grafting. #4 Progressive weakness. #5 Cellulitis of the bilateral lower extremities with a history of severe peripheral vascular disease and previous MRSA infection. #6 Hypertension. #7 Hyperlipidemia. #8 Rheumatoid arthritis. #9 Pleural thickening, suspect previous asbestos exposure with pulmonary fibrosis. #10 Poor overall functional performance based on the above-mentioned multiple comorbidities. #11 Thrombocytopenia. Heparin has been discontinued. Plan: The patient was seen and evaluated by Dr. Abdalla. We will continue with his current medications. He remains on cefepime and vancomycin. Continue diuretics. We will continue to titrate down the FiO2 to maintain O2 saturations greater than 90%. We'll continue to follow and make further recommendations based on his clinical status. I, the cosigning physician, performed a history & physical examination of the patient. Lungs sounds with crackles in the bilateral posterior bases. Maintaining good O2 saturations in the 90s on 2 L/m per nasal cannula. I discussed the assessment and plan of care with my nurse practitioner, Valencia Mcbride. I attest to the above note as dictated by her.
--- NOTE | 2018-04-04 12:58 | P.PN ---
Subjective Principal diagnosis: Patient resting in bed. Awake and alert. Appears dyspneic Objective - Vital Signs Vital signs: Vital Signs Temp 97.0 F L 04/04/18 11:45 Pulse 54 L 04/04/18 11:45 Resp 18 04/04/18 11:45 BP 127/61 04/04/18 11:45 Pulse Ox 93 L 04/04/18 11:45 Intake & Output 04/03/18 04/04/18 04/04/18 18:59 06:59 18:59 Intake Total 240 480 240 Output Total 1100 Balance 240 -620 240 Weight 66.5 kg 66 kg Intake: Oral 240 480 240 Output: Urine 1100 Other: Voiding Method Urinal Urinal Urinal # Voids 0 # Bowel Movements 0 - Constitutional General appearance: Present: thin - EENT Eyes: Present: PERRLA Ears: bilateral: normal - Neck Neck: Present: normal ROM - Respiratory Respiratory: bilateral: diminished, rales - Cardiovascular Rhythm: regular - Gastrointestinal General gastrointestinal: Present: soft - Integumentary Integumentary Comment(s): Dressing wraps to bilateral lower extremities - Neurologic Neurologic: Present: CNII-XII intact - Musculoskeletal Musculoskeletal: Present: generalized weakness - Psychiatric Psychiatric: Present: A&O x's 3, appropriate affect, intact judgment & insight - Labs CBC & Chem 7: 04/04/18 05:58 04/04/18 05:58 Labs: Abnormal Lab Results - Last 24 Hours (Table) 04/03/18 04/03/18 04/03/18 Range/Units 15:02 17:15 17:15 WBC 12.2 H (3.8-10.6) k/uL Hgb (13.0-17.5) gm/dL MCHC 29.6 L (31.0-37.0) g/dL RDW 16.7 H (11.5-15.5) % Plt Count 53 L (150-450) k/uL Neutrophils # 9.7 H (1.3-7.7) k/uL INR 1.2 H (<1.2) Chloride (98-107) mmol/L BUN (9-20) mg/dL Creatinine (0.66-1.25) mg/dL Troponin I 1.660 H* (0.000-0.034) ng/mL 04/03/18 04/04/1818 Range/Units 20:29 05:58 05:58 WBC (3.8-10.6) k/uL Hgb 12.8 L 12.9 L (13.0-17.5) gm/dL MCHC 30.5 L 30.9 L (31.0-37.0) g/dL RDW 16.9 H 17.0 H (11.5-15.5) % Plt Count 55 L 50 L* (150-450) k/uL Neutrophils # (1.3-7.7) k/uL INR 1.2 H (<1.2) Chloride (98-107) mmol/L BUN (9-20) mg/dL Creatinine (0.66-1.25) mg/dL Troponin I (0.000-0.034) ng/mL 04/04/18 Range/Units 05:58 WBC (3.8-10.6) k/uL Hgb (13.0-17.5) gm/dL MCHC (31.0-37.0) g/dL RDW (11.5-15.5) % Plt Count (150-450) k/uL Neutrophils # (1.3-7.7) k/uL INR (<1.2) Chloride 109 H (98-107) mmol/L BUN 42 H (9-20) mg/dL Creatinine 1.27 H (0.66-1.25) mg/dL Troponin I (0.000-0.034) ng/mL Microbiology - Last 24 Hours (Table) 04/02/18 17:40 Blood Culture - Preliminary Blood No Growth after 24 hours - Imaging and Cardiology Chest x-ray: report reviewed Assessment and Plan Plan: Assessment Shortness of breath with the acute on chronic congestive heart failure ejection fraction less than 25% Bilateral lower lobe pneumonia Weakness multifactorial Bilateral leg ulcerations venous stasis with cellulitis History of MRSA History of previous osteomyelitis Peripheral vascular disease Mild to moderate protein calorie malnutrition BMI 19.2 Atrial fibrillation History of coronary disease ischemic cardiomyopathy with history of bypass Hypertension Hyperlipidemia Degenerative joint disease Rheumatoid arthritis Chronic leg wounds History of AICD Plan No code no CPR no ventilator PT OT evaluation possible extended care facility for rehab Continue consultation with cardiology and pulmonology Patient continues on vancomycin and Maxipime
--- NOTE | 2018-04-04 15:10 | P.PN ---
Subjective Progress Note Date: 04/04/18 This is an 87-year-old gentleman with history of ischemic cardio myopathy and prior bypass surgery, he does have a AICD in place. Presented to the hospital mainly with symptoms of progressively worsening shortness of breath with associated weakness. Cardiology was seeing the patient mainly for congestive cardiac failure. Has a lower lobe pneumonia. He was made a no code yesterday. Patient did have an episode of chest discomfort for which a troponin was drawn. His initial troponin was 0.03, subsequent troponin 1.6. He was initiated on IV heparin last evening but because of hematuria the IV heparin was discontinued. Hemoglobin this morning is 12.9, platelet count is 50. Sodium 143, potassium 3.6, BUN 42, creatinine 1.2. Patient denies any shortness of breath today, he's maintaining good oxygen saturation in the 90s. Blood cultures did not reveal any growth. Continues to diurese well. On IV Lasix 40 mg every 8 hourly. Objective - Vital Signs Vital signs: Vital Signs Temp 97.0 F L 04/04/18 11:45 Pulse 54 L 04/04/18 11:45 Resp 18 04/04/18 11:45 BP 127/61 04/04/18 11:45 Pulse Ox 93 L 04/04/18 11:45 Intake & Output 04/03/18 04/04/18 04/04/18 18:59 06:59 18:59 Intake Total 240 480 240 Output Total 1100 Balance 240 -620 240 Weight 66.5 kg 66 kg Intake: Oral 240 480 240 Output: Urine 1100 Other: Voiding Method Urinal Urinal Urinal # Voids 0 # Bowel Movements 0 - Exam PHYSICAL EXAMINATION: GENERAL: HEENT: Head is atraumatic, normocephalic. Pupils equal, round. Sclera anicteric. Conjunctiva are clear. Mucous membranes of the mouth are moist. Neck is supple. There is no elevated jugular venous pressure.] bruit is heard. HEART EXAMINATION: Heart S1, S2 systolic murmur is heard . CHEST EXAMINATION: Lungs reveal fine crackles to bilateral bases. ABDOMEN: Soft, nontender. Bowel sounds are heard. No organomegaly noted. EXTREMITIES: 1+ peripheral pulses with no evidence of peripheral edema and no calf tenderness noted. NEUROLOGIC patient is awake, alert and oriented -3. . - Labs CBC & Chem 7: 04/04/18 05:58 04/04/18 05:58 Labs: Abnormal Lab Results - Last 24 Hours (Table) 04/03/18 04/03/18 04/03/18 Range/Units 15:02 17:15 17:15 WBC 12.2 H (3.8-10.6) k/uL Hgb (13.0-17.5) gm/dL MCHC 29.6 L (31.0-37.0) g/dL RDW 16.7 H (11.5-15.5) % Plt Count 53 L (150-450) k/uL Neutrophils # 9.7 H (1.3-7.7) k/uL INR 1.2 H (<1.2) Chloride (98-107) mmol/L BUN (9-20) mg/dL Creatinine (0.66-1.25) mg/dL Troponin I 1.660 H* (0.000-0.034) ng/mL 04/03/18 04/04/18 04/04/18 Range/Units 20:29 05:58 05:58 WBC (3.8-10.6) k/uL Hgb 12.8 L 12.9 L (13.0-17.5) gm/dL MCHC 30.5 L 30.9 L (31.0-37.0) g/dL RDW 16.9 H 17.0 H (11.5-15.5) % Plt Count 55 L 50 L* (150-450) k/uL Neutrophils # (1.3-7.7) k/uL INR 1.2 H (<1.2) Chloride (98-107) mmol/L BUN (9-20) mg/dL Creatinine (0.66-1.25) mg/dL Troponin I (0.000-0.034) ng/mL 04/04/18 Range/Units 05:58 WBC (3.8-10.6) k/uL Hgb (13.0-17.5) gm/dL MCHC (31.0-37.0) g/dL RDW (11.5-15.5) % Plt Count (150-450) k/uL Neutrophils # (1.3-7.7) k/uL INR (<1.2) Chloride 109 H (98-107) mmol/L BUN 42 H (9-20) mg/dL Creatinine 1.27 H (0.66-1.25) mg/dL Troponin I (0.000-0.034) ng/mL Microbiology - Last 24 Hours (Table) 04/02/18 17:40 Blood Culture - Preliminary Blood No Growth after 24 hours Assessment and Plan Plan: Assessment and plan #1 systolic congestive heart failure acute on chronic #2 ischemic cardiomyopathy with prior AICD #3 coronary artery disease with prior bypass surgery #4 cellulitis of bilateral lower extremities # 5 PVD #6 hypertension #7 hyperlipidemia #8 rheumatoid arthritis #9 abnormal troponin, could represent acute coronary syndrome, we will maximize the patient's medical therapy. #10 thrombocytopenia Plan From cardiology's perspective, we will recommend to continue patient on current dose of IV Lasix, we will continue aspirin, Lipitor, Coreg, losartan, check lytes BUN and creatinine in the morning. DNP note has been reviewed, I agree with a documented findings and plan of care. Patient was seen and examined.
[2018-04-04] MEDS: ATORVASTATIN 20 MG TAB PO SCH (19:33)
[2018-04-05] MEDS: HYDROcodone/APAP 10-325MG 1 EACH TAB PO PRN ×3 (06:15→20:27)
[2018-04-05] MEDS ORDERED: MORPHINE SULFATE 2 MG/ML SYRINGE IV PRN (07:51)
[2018-04-05] MEDS ORDERED: VANCOMYCIN TROUGH DUE 1 EACH MISC MISCELLANE ONE (08:00)
[2018-04-05 08:21] LABS: Anisocytosis Slight; Basophils # (A) 0.1 k/uL (0-0.2); Basophils % (A) 1 %; Eosinophils # (A) 0.3 k/uL (0-0.7); Eosinophils % (A) 3 %; HCT 44.1 % (39.0-53.0); HGB 13.9 gm/dL (13.0-17.5); Hypochromasia Slight; Lymphocytes # (A) 1.3 k/uL (1.0-4.8); Lymphocytes % (A) 14 %; MCH 27.1 pg (25.0-35.0); MCHC 31.5 g/dL (31.0-37.0); Mean Platelet Volume 8.6; Monocytes # (A) 0.6 k/uL (0-1.0); Monocytes % (A) 6 %; Neutrophils # (A) 7.1 k/uL (1.3-7.7); Neutrophils % (A) 75 %; RBC 5.12 m/uL (4.30-5.90); RDW 16.4 % (11.5-15.5); WBC 9.5 k/uL (3.8-10.6)
[2018-04-05 08:23] LABS: INR 1.2 (<1.2); Prothrombin Time 11.3 sec (9.0-12.0)
[2018-04-05 08:29] LABS: Platelet Count 59 k/uL (150-450)
[2018-04-05] MEDS: ASPIRIN 81 MG PO SCH (08:32)
[2018-04-05] MEDS: CARVEDILOL 3.125 MG TAB PO SCH ×2 (08:32→17:35)
[2018-04-05] MEDS: FUROSEMIDE 10 MG/ML 4 ML VIAL IV SCH (08:32)
[2018-04-05 08:43] LABS: Calcium 8.8 mg/dL (8.4-10.2); Potassium 3.3 mmol/L (3.5-5.1)
[2018-04-05] MEDS ORDERED: VANCOMYCIN 1,250 MG in SODIUM CHLORIDE 0.9% 250 ML IVPB SCH (09:00)
[2018-04-05] MEDS: CEFEPIME 2 GM in SODIUM CHLORIDE 0.9% 50 ML IVPB SCH ×3 (09:57→23:24)
[2018-04-05] MEDS ORDERED: Potassium Replacement Protocol 1 EACH MISC MISCELLANE PRN ×2 (11:23→11:29)
[2018-04-05] MEDS: LOSARTAN 50 MG TAB PO SCH (11:39)
--- NOTE | 2018-04-05 11:57 | P.PN ---
Subjective Making arrangement for extended care facility. Patient continues on IV Lasix will be stable for transfer when on oral Lasix per cardiology. Potassium low 3.3 supplemented ordered Objective - Vital Signs Vital signs: Vital Signs Temp 96.7 F L 04/05/18 11:36 Pulse 50 L 04/05/18 11:36 Resp 24 04/05/18 11:36 BP 128/64 04/05/18 11:36 Pulse Ox 98 04/05/18 11:36 Intake & Output 04/04/18 04/05/18 04/05/18 18:59 06:59 18:59 Intake Total 720 240 180 Output Total 625 2350 Balance 95 -2110 180 Weight 66 kg Intake: Oral 720 240 180 Output: Urine 625 2350 Other: Voiding Method Urinal Urinal Indwelling Catheter # Voids 0 # Bowel Movements 0 - Constitutional General appearance: Present: thin - EENT Eyes: Present: PERRLA Ears: bilateral: normal - Respiratory Respiratory: bilateral: diminished, rales - Cardiovascular Abnormal Heart Sounds: Present: systolic murmur - Gastrointestinal General gastrointestinal: Present: soft - Integumentary Integumentary Comment(s): Lower extremities wrapped Integumentary: Present: normal - Neurologic Neurologic: Present: CNII-XII intact - Musculoskeletal Musculoskeletal: Present: generalized weakness - Psychiatric Psychiatric: Present: A&O x's 3, appropriate affect, intact judgment & insight - Labs CBC & Chem 7: 04/05/18 08:01 04/05/18 07:50 Labs: Abnormal Lab Results - Last 24 Hours (Table) 04/05/18 04/05/18 04/05/18 Range/Units 07:50 07:50 08:01 RDW 16.4 H (11.5-15.5) % Plt Count 59 L (150-450) k/uL INR 1.2 H (<1.2) Potassium 3.3 L (3.5-5.1) mmol/L BUN 47 H (9-20) mg/dL Glucose 114 H (74-99) mg/dL Microbiology - Last 24 Hours (Table) 04/02/18 17:40 Blood Culture - Preliminary Blood No Growth after 48 hours - Imaging and Cardiology Chest x-ray: report reviewed Assessment and Plan Plan: Assessment Congestive heart failure acute exacerbation systolic dysfunction ejection fraction 25% Bilateral pneumonia Generalized weakness Bilateral leg ulcerations history of MRSA History of osteomyelitis History of peripheral vascular disease Mild to moderate protein calorie malnutrition BMI 19.2 History of atrial fibrillation History of coronary disease ischemic cardiomyopathy with history of bypass Hypertension Hyperlipidemia Rheumatoid arthritis Thrombocytopenia Hypokalemia Plan Continue consultation with cardiology hopeful discharge soon to extended care facility
[2018-04-05] MEDS ORDERED: POTASSIUM CHLORIDE 10 MEQ in WATER FOR INJECTION 1 100ML.BAG IVPB SCH (12:00)
[2018-04-05] MEDS: POTASSIUM CHLORIDE ER 20 MEQ TAB.ER PO SCH ×2 (12:27→14:08)
--- NOTE | 2018-04-05 15:11 | P.PN ---
Subjective Progress Note Date: 04/05/18 Principal diagnosis: Acute on chronic hypoxic respiratory failure secondary to an acute exacerbation of systolic congestive heart failure. This is an 87-year-old frail, cachectic gentleman who follows with Dr. Hallman as his primary care physician. He has a history of atrial fibrillation, coronary artery disease with previous coronary artery bypass surgery in 1989, ischemic cardiomyopathy status post AICD with most recent generator change 2014, chronic leg ulcers with previous MRSA infections and osteomyelitis and peripheral vascular disease, hypertension, hyperlipidemia, rheumatoid arthritis, bowel resection. He also has a history of pleural calcifications bilaterally suggestive of previous asbestos exposure, pulmonary fibrosis. Lifelong nonsmoker. He presented here to the emergency room yesterday his family members found him with progressive weakness unable to get out of bed and worsening shortness of breath. Chest x-ray reveals evidence of congestive heart failure with bilateral pleural effusions. ProBNP level 8780. No leukocytosis. Afebrile. No tachycardia. No tachypnea. Maintaining O2 saturations in the 90s on 4 L/m per nasal cannula. The patient is seen again today 04/04/2018 in follow-up on the selective care unit. He is a little more awake today as compared to yesterday. He currently denies any worsening shortness of breath. He has a loose nonproductive cough. Maintaining good O2 saturations in the 90s on 2 L/m per nasal cannula. His been afebrile. Hemodynamically stable. Blood cultures revealing no growth to date. White count 8.3. Hemoglobin 12.9. Platelet count 50,000. Creatinine 1.27. His heparin has been discontinued. He remains on vancomycin and cefepime. He continues to diurese well. Currently in a negative balance. The patient is seen again today 04/05/2018 in follow-up on the selective care unit. He is currently sitting up in a chair at the bedside. A little more awake and alert today as compared to yesterday. He is maintaining good O2 saturations in the upper 90s on 3 L/m per nasal cannula. He continues to diurese well. He is in a negative balance. His been afebrile. Hemodynamically stable. White count 9.5. Hemoglobin 13.9. Creatinine 1.23. Objective - Vital Signs Vital signs: Vital Signs Temp 96.7 F L 04/05/18 11:36 Pulse 50 L 04/05/18 11:36 Resp 24 04/05/18 11:36 BP 128/64 04/05/18 11:36 Pulse Ox 98 04/05/18 11:36 Intake & Output 04/04/18 04/05/18 04/05/18 18:59 06:59 18:59 Intake Total 720 240 598 Output Total 625 2350 1200 Balance 95 -2110 -602 Weight 66 kg Intake: IV 300 Cefepime 2 gm In Sodium 50 Chloride 0.9% 50 ml @ 100 mls/hr IVPB Q8HR SANDIE Rx# :[id number] Vancomycin 1,000 mg In 250 Sodium Chloride 0.9% 250 ml @ 125 mls/hr IVPB Q24HR [facility] Rx#:[id number] Oral 720 240 298 Output: Urine 625 2350 1200 Uretheral (Adler) 1200 Other: Voiding Method Urinal Urinal Indwelling Catheter # Voids 0 # Bowel Movements 0 - Exam GENERAL EXAM: Frail, cachectic. Alert, comfortable in no apparent distress. HEAD: Normocephalic. EYES: Normal reaction of pupils, equal size. NOSE: Clear with pink turbinates. THROAT: No erythema or exudates. NECK: No masses, no JVD. CHEST: No chest wall deformity. LUNGS: Equal air entry with faint crackles in the posterior bases. CVS: S1 and S2 normal with no audible murmur, regular rhythm. ABDOMEN: No hepatosplenomegaly, normal bowel sounds, no guarding or rigidity. SPINE: Kyphoscoliosis SKIN: Cellulitis lower extremities CENTRAL NERVOUS SYSTEM: No focal deficits, tone is normal in all 4 extremities. EXTREMITIES: There are changes of chronic venous stasis. - Labs CBC & Chem 7: 04/05/18 08:01 04/05/18 07:50 Labs: Abnormal Lab Results - Last 24 Hours (Table) 04/05/18 04/05/18 04/05/18 Range/Units 07:50 07:50 08:01 RDW 16.4 H (11.5-15.5) % Plt Count 59 L (150-450) k/uL INR 1.2 H (<1.2) Potassium 3.3 L (3.5-5.1) mmol/L BUN 47 H (9-20) mg/dL Glucose 114 H (74-99) mg/dL Microbiology - Last 24 Hours (Table) 04/02/18 17:40 Blood Culture - Preliminary Blood No Growth after 48 hours Assessment and Plan Assessment: Impression: #1 Acute on chronic hypoxic respiratory failure secondary to an acute exacerbation of systolic congestive heart failure with a severely impaired left ventricular systolic function less than 20%. #2 Chronic atrial fibrillation. #3 Coronary artery disease with previous coronary artery bypass grafting. #4 Progressive weakness. #5 Cellulitis of the bilateral lower extremities with a history of severe peripheral vascular disease and previous MRSA infection. #6 Hypertension. #7 Hyperlipidemia. #8 Rheumatoid arthritis. #9 Pleural thickening, suspect previous asbestos exposure with pulmonary fibrosis. #10 Poor overall functional performance based on the above-mentioned multiple comorbidities. #11 Thrombocytopenia. Heparin has been discontinued. Plan: The patient was seen and evaluated by Dr. Abdalla. He continues to diurese well. We will repeat a chest x-ray in the a.m. We will continue to titrate down the FiO2 to maintain O2 saturations greater than 90%. We'll continue to follow and make further recommendations based on his clinical status. The plan is for discharge to an extended care facility. I, the cosigning physician, performed a history & physical examination of the patient. Lungs sounds with crackles in the bilateral posterior bases. Maintaining good O2 saturations in the 90s on 3 L/m per nasal cannula. I discussed the assessment and plan of care with my nurse practitioner, Valencia Mcbride. I attest to the above note as dictated by her.
[2018-04-05] MEDS: FUROSEMIDE 40 MG TAB PO SCH (16:08)
[2018-04-05] MEDS: ATORVASTATIN 20 MG TAB PO SCH (20:27)
[2018-04-06] MEDS ORDERED: HYDROcodone/APAP 10-325MG 1 EACH TAB ONE (02:28)
[2018-04-06] MEDS: CARVEDILOL 3.125 MG TAB PO SCH ×2 (06:13→16:39)
[2018-04-06 06:38] LABS: Anisocytosis Slight; Basophils % (A) 1 %; Eosinophils # (A) 0.3 k/uL (0-0.7); Eosinophils % (A) 4 %; HGB 14.5 gm/dL (13.0-17.5); Hypochromasia Slight; Lymphocytes # (A) 1.3 k/uL (1.0-4.8); Lymphocytes % (A) 15 %; MCH 26.9 pg (25.0-35.0); MCHC 31.5 g/dL (31.0-37.0); MCV 85.3 fL (80.0-100.0); Mean Platelet Volume 8.8; Monocytes # (A) 0.5 k/uL (0-1.0); Monocytes % (A) 6 %; Neutrophils # (A) 6.1 k/uL (1.3-7.7); Neutrophils % (A) 73 %; RBC 5.39 m/uL (4.30-5.90); RDW 16.6 % (11.5-15.5); WBC 8.3 k/uL (3.8-10.6)
[2018-04-06 06:44] LABS: Platelet Count 52 k/uL (150-450)
[2018-04-06 06:47] LABS: INR 1.1 (<1.2); Prothrombin Time 10.9 sec (9.0-12.0)
[2018-04-06 06:58] LABS: Calcium 8.7 mg/dL (8.4-10.2); Potassium 3.5 mmol/L (3.5-5.1)
[2018-04-06] MEDS ORDERED: VANCOMYCIN 1,000 MG in SODIUM CHLORIDE 0.9% 250 ML IVPB SCH (09:00)
[2018-04-06] MEDS: CEFEPIME 2 GM in SODIUM CHLORIDE 0.9% 50 ML IVPB SCH ×3 (09:00→23:11)
[2018-04-06] MEDS: HYDROcodone/APAP 10-325MG 1 EACH TAB PO PRN ×2 (09:03→16:39)
--- NOTE | 2018-04-06 09:04 | XR ---
EXAMINATION TYPE: XR chest 1V portable DATE OF EXAM: 04/06/2018 COMPARISON: Prior chest 04/03/2018 HISTORY: Congestive heart failure TECHNIQUE: Single frontal view of the chest is obtained. FINDINGS: Findings are similar. There is blunting of the costophrenic angles, bibasilar increased de nsity in the heart remains enlarged, patient is post median sternotomy. Intracardiac defibrillator le ad is stable. Interstitium is increased. There is no evident pneumothorax. Calcified pleural plaques are noted. The aorta is dense. Parenchymal density in the right upper lobe is again noted. Shoulders are high riding suggesting probable chronic rotator cuff tears. IMPRESSION: Findings compatible with pulmonary venous hypertension, interstitial edema. Correlate fo r asbestos related disease. There may be a component of interstitial lung disease. Follow-up to [facility]. Consider chest CT.
[2018-04-06] MEDS: LOSARTAN 50 MG TAB PO SCH (09:05)
[2018-04-06] MEDS: ASPIRIN 81 MG PO SCH (09:05)
[2018-04-06] MEDS: FUROSEMIDE 40 MG TAB PO SCH ×2 (09:05→16:39)
[2018-04-06] MEDS ORDERED: MORPHINE ORAL SOLN 10 MG/5 ML CUP PO PRN (10:45)
--- NOTE | 2018-04-06 11:15 | CDI ---
Last Revision, October 2017 Documentation Clarification Form Date: 04/06/2018 11:08:11 AM From: Alyssa Best RN, CCDS Admit Date: 04/02/2018 7:20:00 PM Patient Name: Juan Cedeno Visit Number: [id number] Discharge Date: ATTENTION: The Clinical Documentation Specialists (CDI) and [facility] Coding Staff appreciate your assistance in clarifying documentation. Please respond to the clarification below the line at the bottom and electronically sign. The CDI & [facility] Coding staff will review the response and follow-up if needed. Please note: Queries are made part of the Legal Health Record. If you have any questions, please contact the author of this message via ITS. Dr. Luiz Shah Acute non ST-segment elevation myocardial infarction is documented in the progress note on 04/03/18 04/04/19 Cardiology progress note: Abnormal troponin, could represent acute coronary syndrome, we will maximize the patient's medical therapy. Patient History/Risk Factors: Ischemic cardiomyopathy, Chronic atrial fibrillation, Hypertension, Myocardial infarction Clinical Indicators: Present with complaints of generalized weakness, dyspnea. Patient had an episode of chest discomfort for which troponin was drawn and was 0.03, 1.660. Vital signs: 127/61 54 18 97.0 93 % EKG Results: Atrial fibrillation, underlying rhythm, isolated ventricular paced beats. Treatment: Heparin IV (DC) Cozaar PO Carvedilol PO ASA PO In order to capture the severity of condition and necessary documentation specificity, please further clarify: Myocardial infarction ruled in Myocardial infarction ruled out Type of Infarction: STEMI NSTEMI Unable to determine Other Condition, please specify Episode of Care: Initial Episode Subsequent Episode Unable to determine Other, please specify Please continue to document in your progress notes and discharge summary in order to capture severity of illness and risk of mortality. Include clinical findings that support your diagnosis. MTDD
--- NOTE | 2018-04-06 12:05 | CDI ---
Last Revision, October 2017 Documentation Clarification Form Date: 04/06/18 From: Alyssa Best RN, CCDS Admit Date: 04/02/2018 7:20:00 PM Patient Name: Juan Cedeno Visit Number: [id number] Discharge Date: ATTENTION: The Clinical Documentation Specialists (CDI) and [facility] Coding Staff appreciate your assistance in clarifying documentation. Please respond to the clarification below the line at the bottom and electronically sign. The CDI & [facility] Coding staff will review the response and follow-up if needed. Please note: Queries are made part of the Legal Health Record. If you have any questions, please contact the author of this message via ITS. Dr. Clarence Hallman Pneumonia was documented in ED evaluation, H&P and attending progress notes. History/Risk Factors: Pneumonia, Chronic atrial fibrillation, Hypertension, Rheumatoid arthritis, Clinical Indicators: Present with complaints of generalized weakness, dyspnea. WBC/Left shift: on admission 8.3, BNP 8780 Chest x-ray: 04/02/18: Cardiomegaly, Basilar infiltrates . Correlate for atelectasis or pneumonia Lung/Breathing assessment: Bilateral rhonchi Vital signs 115/59 76 22 98.8 92 % Treatment: Vancomycin IV Maxipine IV Monitor O2 Sat's (titrate) In order to capture the severity of condition, please clarify if the condition signifies and you are treating for: Bacterial Pneumonia, specify causal organism (if known) Gram Negative Pneumonia Due to Strep Due to Staph Due to E. Coli Other bacteria (please specify) Viral Pneumonia, specify casual organism (if known) Healthcare Acquired Pneumonia/Pneumonia, unspecified Other, please specify Unable to determine Please continue to document in your progress notes and discharge summary in order to capture severity of illness and risk of mortality. Include clinical findings that support your diagnosis. MTDD
--- NOTE | 2018-04-06 12:17 | P.PN ---
Subjective Patient resting without complaint. Lasix is been changed to by mouth. Continues to have difficulty with urinary retention Adler ordered Objective - Vital Signs Vital signs: Vital Signs Temp 97.0 F L 04/06/18 08:50 Pulse 49 L 04/06/18 08:50 Resp 16 04/06/18 08:50 BP 101/53 04/06/18 08:50 Pulse Ox 95 04/06/18 08:50 Intake & Output 04/05/18 04/06/18 04/06/18 18:59 06:59 18:59 Intake Total 948 310 Output Total 1200 1561 Balance -252 -1251 Weight 65 kg Intake: IV 300 260 0.9 @20ml/hr 160 Cefepime 2 gm In Sodium 50 100 Chloride 0.9% 50 ml @ 100 mls/hr IVPB Q8HR [facility] Rx# :[id number] Vancomycin 1,000 mg In 250 Sodium Chloride 0.9% 250 ml @ 125 mls/hr IVPB Q24HR [facility] Rx#:[id number] Oral 648 50 Output: Urine 1200 1220 Straight 600 Uretheral (Adler) 1200 Post Void Residual 341 Other: Voiding Method Urinal Urinal Urinal # Voids 1 - Constitutional General appearance: Present: average body habitus - EENT Eyes: Present: PERRLA Ears: bilateral: normal - Neck Neck: Present: normal ROM - Cardiovascular Rhythm: regular - Gastrointestinal General gastrointestinal: Present: soft - Integumentary Integumentary Comment(s): Bilateral leg ulcerations noted - Neurologic Neurologic: Present: CNII-XII intact - Musculoskeletal Musculoskeletal: Present: generalized weakness - Psychiatric Psychiatric: Present: A&O x's 3, appropriate affect, intact judgment & insight - Labs CBC & Chem 7: 04/06/18 06:05 04/06/18 06:05 Labs: Abnormal Lab Results - Last 24 Hours (Table) 04/06/18 04/06/18 Range/Units 06:05 06:05 RDW 16.6 H (11.5-15.5) % Plt Count 52 L (150-450) k/uL BUN 47 H (9-20) mg/dL Microbiology - Last 24 Hours (Table) 04/02/18 17:40 Blood Culture - Preliminary Blood No Growth after 72 hours Assessment and Plan Plan: Assessment Acute on chronic exacerbation of congestive heart failure systolic dysfunction ejection fraction less than 25% Elevated troponin needs to be clarified with cardiology Urinary retention hematuria related to the same Bilateral pneumonia gram-positive presumptive Generalized weakness multifactorial Bilateral leg ulcerations secondary to venous stasis with cellulitis failure of outpatient therapy History of MRSA History of osteomyelitis Peripheral vascular disease Mild to moderate protein calorie malnutrition Atrial fibrillation Coronary disease with ischemic cardiomyopathy with history of bypass Hypertension Hyperlipidemia Degenerative joint disease Rheumatoid arthritis History of AICD Thrombocytopenia unknown etiology Hypokalemia corrected Plan continue consultation with pulmonology and cardiology Patient on Vanco and cefepime Hopeful discharge soon extended care facility has had consultation with social work specialist
--- NOTE | 2018-04-06 15:30 | P.PN ---
Subjective Progress Note Date: 04/06/18 This is an 87-year-old frail, cachectic gentleman who follows with Dr. Hallman as his primary care physician. He has a history of atrial fibrillation, coronary artery disease with previous coronary artery bypass surgery in 1989, ischemic cardiomyopathy status post AICD with most recent generator change 2014, chronic leg ulcers with previous MRSA infections and osteomyelitis and peripheral vascular disease, hypertension, hyperlipidemia, rheumatoid arthritis, bowel resection. He also has a history of pleural calcifications bilaterally suggestive of previous asbestos exposure, pulmonary fibrosis. Lifelong nonsmoker. He presented here to the emergency room yesterday his family members found him with progressive weakness unable to get out of bed and worsening shortness of breath. Chest x-ray reveals evidence of congestive heart failure with bilateral pleural effusions. ProBNP level 8780. No leukocytosis. Afebrile. No tachycardia. No tachypnea. Maintaining O2 saturations in the 90s on 4 L/m per nasal cannula. The patient is seen again today 04/04/2018 in follow-up on the selective care unit. He is a little more awake today as compared to yesterday. He currently denies any worsening shortness of breath. He has a loose nonproductive cough. Maintaining good O2 saturations in the 90s on 2 L/m per nasal cannula. His been afebrile. Hemodynamically stable. Blood cultures revealing no growth to date. White count 8.3. Hemoglobin 12.9. Platelet count 50,000. Creatinine 1.27. His heparin has been discontinued. He remains on vancomycin and cefepime. He continues to diurese well. Currently in a negative balance. The patient is seen again today 04/05/2018 in follow-up on the selective care unit. He is currently sitting up in a chair at the bedside. A little more awake and alert today as compared to yesterday. He is maintaining good O2 saturations in the upper 90s on 3 L/m per nasal cannula. He continues to diurese well. He is in a negative balance. His been afebrile. Hemodynamically stable. White count 9.5. Hemoglobin 13.9. Creatinine 1.23. On 04/06/2018, the patient is feeling well and has no specific complaints. He has diuresed nicely. His renal function is remaining stable with a creatinine of 1.06 and BUN of 47. The patient is not having any significant shortness of breath. He is resting comfortably in bed. The neck fluid balance over the past 24 hours his been -2 L and the patient has diabetes another 1.5 L over the past 8 hours. His body weight is down to 65 kg. He is actually she is also improved. He is pulse oxing 94-95% on 3 L of oxygen nasal cannula. The patient is still on Lasix 40 mg by mouth twice a day. He remains on a combination of cefepime and vancomycin as broad-spectrum antibiotic coverage. No fever. No chills. No leukocytosis. No other complaints otherwise. Chest x -ray from today shows pulmonary vessel congestion and interstitial edema. There is an underlying component of asbestos exposure/asbestosis and possibly a component of interstitial lung disease. Objective - Vital Signs Vital signs: Vital Signs Temp 97.0 F L 04/06/18 08:50 Pulse 53 L 04/06/18 11:35 Resp 22 04/06/18 11:35 BP 146/68 04/06/18 11:35 Pulse Ox 94 L 04/06/18 11:35 Intake & Output 04/05/18 04/06/18 04/06/18 18:59 06:59 18:59 Intake Total 948 310 Output Total 1200 1561 400 Balance -252 -1251 -400 Weight 65 kg Intake: IV 300 260 0.9 @20ml/hr 160 Cefepime 2 gm In Sodium 50 100 Chloride 0.9% 50 ml @ 100 mls/hr IVPB Q8HR SANDIE Rx# :[id number] Vancomycin 1,000 mg In 250 Sodium Chloride 0.9% 250 ml @ 125 mls/hr IVPB Q24HR SANDIE Rx#:[id number] Oral 648 50 Output: Urine 1200 1220 400 Straight 600 Uretheral ([place]) 1200 Post Void Residual 341 Other: Voiding Method Urinal Urinal Indwelling Catheter # Voids 1 - Exam GENERAL EXAM: Frail, cachectic. Alert, comfortable in no apparent distress. HEAD: Normocephalic. EYES: Normal reaction of pupils, equal size. NOSE: Clear with pink turbinates. THROAT: No erythema or exudates. NECK: No masses, no JVD. CHEST: No chest wall deformity. LUNGS: Equal air entry with faint crackles in the posterior bases. CVS: S1 and S2 normal with no audible murmur, regular rhythm. ABDOMEN: No hepatosplenomegaly, normal bowel sounds, no guarding or rigidity. SPINE: Kyphoscoliosis SKIN: Cellulitis lower extremities CENTRAL NERVOUS SYSTEM: No focal deficits, tone is normal in all 4 extremities. EXTREMITIES: There are changes of chronic venous stasis. - Labs CBC & Chem 7: 04/06/18 06:05 04/06/18 06:05 Labs: Abnormal Lab Results - Last 24 Hours (Table) 04/06/18 04/06/18 Range/Units 06:05 06:05 RDW 16.6 H (11.5-15.5) % Plt Count 52 L (150-450) k/uL BUN 47 H (9-20) mg/dL Microbiology - Last 24 Hours (Table) 04/02/18 17:40 Blood Culture - Preliminary Blood No Growth after 72 hours Assessment and Plan Plan: Impression: #1 Acute on chronic hypoxic respiratory failure secondary to an acute exacerbation of systolic congestive heart failure with a severely impaired left ventricular systolic function less than 20%. Clinically the patient is improved considerably. The patient had diuresed with IV Lasix initially and currently is on oral Lasix. Significant improvement in her fluid balance and the patient has improved in terms of his oxygenation, Liters of oxygen nasal cannula with a pulse ox of 94-95%. The patient has an AICD in place. The patient is also known to have coronary artery with previous bypass surgery. #2 Chronic atrial fibrillation. #3 Coronary artery disease with previous coronary artery bypass grafting. #4 Progressive weakness. #5 Cellulitis of the bilateral lower extremities with a history of severe peripheral vascular disease and previous MRSA infection. #6 Hypertension. #7 Hyperlipidemia. #8 Rheumatoid arthritis. Along with history of degenerative arthritis. #9 Pleural thickening, suspect previous asbestos exposure with pulmonary fibrosis. #10 Poor overall functional performance based on the above-mentioned multiple comorbidities. #11 Thrombocytopenia. Heparin has been discontinued. Plan Continue oral Lasix. Discharge planning is in progress and the patient is looking to go to [facility] for further recuperation. Consider stopping antibiotics including a combination of cefepime and vancomycin. No significant segments of the lower extremities in the blood culture has been negative and the patient has been afebrile. Monitor platelet count. We will follow.
[2018-04-06] MEDS: ATORVASTATIN 20 MG TAB PO SCH (21:17)
[2018-04-07] MEDS: HYDROcodone/APAP 10-325MG 1 EACH TAB PO PRN ×3 (02:29→18:59)
[2018-04-07] MEDS: CARVEDILOL 3.125 MG TAB PO SCH ×2 (06:33→19:01)
[2018-04-07 06:39] LABS: Anisocytosis Slight; Basophils # (A) 0.1 k/uL (0-0.2); Basophils % (A) 1 %; Eosinophils # (A) 0.3 k/uL (0-0.7); Eosinophils % (A) 4 %; HCT 45.3 % (39.0-53.0); HGB 14.1 gm/dL (13.0-17.5); Hypochromasia Slight; Lymphocytes # (A) 1.4 k/uL (1.0-4.8); Lymphocytes % (A) 16 %; MCH 26.7 pg (25.0-35.0); MCHC 31.2 g/dL (31.0-37.0); MCV 85.6 fL (80.0-100.0); Mean Platelet Volume 8.8; Monocytes # (A) 0.5 k/uL (0-1.0); Monocytes % (A) 5 %; Neutrophils # (A) 6.6 k/uL (1.3-7.7); Neutrophils % (A) 73 %; RBC 5.29 m/uL (4.30-5.90); RDW 16.8 % (11.5-15.5); WBC 9.1 k/uL (3.8-10.6)
[2018-04-07 06:47] LABS: Potassium 3.2 mmol/L (3.5-5.1)
[2018-04-07 07:00] LABS: Platelet Count 56 k/uL (150-450)
[2018-04-07 07:05] LABS: INR 1.1 (<1.2); Prothrombin Time 10.8 sec (9.0-12.0)
[2018-04-07] MEDS: ASPIRIN 81 MG PO SCH (08:32)
[2018-04-07] MEDS: LOSARTAN 50 MG TAB PO SCH (08:32)
[2018-04-07] MEDS: CEFEPIME 2 GM in SODIUM CHLORIDE 0.9% 50 ML IVPB SCH (08:32)
[2018-04-07] MEDS: FUROSEMIDE 40 MG TAB PO SCH ×2 (08:32→19:01)
[2018-04-07 08:46] VITALS: TEMP 98
[2018-04-07] MEDS ORDERED: VANCOMYCIN 1,250 MG in SODIUM CHLORIDE 0.9% 250 ML IVPB SCH (09:00)
[2018-04-07] MEDS: POTASSIUM CHLORIDE ER 20 MEQ TAB.ER PO SCH ×2 (11:25→14:21)
[2018-04-07] MEDS ORDERED: Magnesium Replacement Protocol 1 EACH MISC MISCELLANE PRN (11:42)
[2018-04-07 11:50] VITALS: BP 148/71; PULSE 57; RESP 16
[2018-04-07] MEDS: MAGNESIUM SULFATE-D5W PMX 1 GM in DEXTROSE/WATER 1 100ML.BAG IVPB SCH ×2 (12:10→14:21)
--- NOTE | 2018-04-07 12:45 | P.PN ---
Subjective Progress Note Date: 04/07/18 Principal diagnosis: Acute on chronic hypoxic respiratory failure secondary to an acute exacerbation of systolic congestive heart failure. This is an 87-year-old frail, cachectic gentleman who follows with Dr. Hallman as his primary care physician. He has a history of atrial fibrillation, coronary artery disease with previous coronary artery bypass surgery in 1989, ischemic cardiomyopathy status post AICD with most recent generator change 2014, chronic leg ulcers with previous MRSA infections and osteomyelitis and peripheral vascular disease, hypertension, hyperlipidemia, rheumatoid arthritis, bowel resection. He also has a history of pleural calcifications bilaterally suggestive of previous asbestos exposure, pulmonary fibrosis. Lifelong nonsmoker. He presented here to the emergency room yesterday his family members found him with progressive weakness unable to get out of bed and worsening shortness of breath. Chest x-ray reveals evidence of congestive heart failure with bilateral pleural effusions. ProBNP level 8780. No leukocytosis. Afebrile. No tachycardia. No tachypnea. Maintaining O2 saturations in the 90s on 4 L/m per nasal cannula. The patient is seen again today 04/04/2018 in follow-up on the selective care unit. He is a little more awake today as compared to yesterday. He currently denies any worsening shortness of breath. He has a loose nonproductive cough. Maintaining good O2 saturations in the 90s on 2 L/m per nasal cannula. His been afebrile. Hemodynamically stable. Blood cultures revealing no growth to date. White count 8.3. Hemoglobin 12.9. Platelet count 50,000. Creatinine 1.27. His heparin has been discontinued. He remains on vancomycin and cefepime. He continues to diurese well. Currently in a negative balance. The patient is seen again today 04/05/2018 in follow-up on the selective care unit. He is currently sitting up in a chair at the bedside. A little more awake and alert today as compared to yesterday. He is maintaining good O2 saturations in the upper 90s on 3 L/m per nasal cannula. He continues to diurese well. He is in a negative balance. His been afebrile. Hemodynamically stable. White count 9.5. Hemoglobin 13.9. Creatinine 1.23. On 04/06/2018, the patient is feeling well and has no specific complaints. He has diuresed nicely. His renal function is remaining stable with a creatinine of 1.06 and BUN of 47. The patient is not having any significant shortness of breath. He is resting comfortably in bed. The neck fluid balance over the past 24 hours his been -2 L and the patient has diabetes another 1.5 L over the past 8 hours. His body weight is down to 65 kg. He is actually she is also improved. He is pulse oxing 94-95% on 3 L of oxygen nasal cannula. The patient is still on Lasix 40 mg by mouth twice a day. He remains on a combination of cefepime and vancomycin as broad-spectrum antibiotic coverage. No fever. No chills. No leukocytosis. No other complaints otherwise. Chest x -ray from today shows pulmonary vessel congestion and interstitial edema. There is an underlying component of asbestos exposure/asbestosis and possibly a component of interstitial lung disease. The patient is seen again today 04/07/2018 in follow-up on the selective care unit. He is currently sitting up in a chair at bedside. He is awake and alert in no acute distress. He is maintaining good O2 saturations in the mid 90s now on 2 L/m per nasal cannula. His been afebrile. Hemodynamically stable. He continues to diurese well. Current weight down to 63.5 kg. Blood cultures reveal no growth. White count 9.1. Hemoglobin 14.1. Creatinine 0.90. Objective - Vital Signs Vital signs: Vital Signs Temp 98.0 F 04/07/18 08:25 Pulse 57 L 04/07/18 11:20 Resp 16 04/07/18 11:20 BP 148/71 04/07/18 11:20 Pulse Ox 96 04/07/18 11:20 Intake & Output 04/06/18 04/07/18 04/07/18 18:59 06:59 18:59 Intake Total 708 236 Output Total 1000 1400 Balance -292 -1400 236 Weight 63.5 kg Intake: Oral 708 236 Output: Urine 1000 1400 Other: Voiding Method Indwelling Catheter Indwelling Catheter Indwelling Catheter - Exam GENERAL EXAM: Frail, cachectic. Alert, comfortable in no apparent distress. HEAD: Normocephalic. EYES: Normal reaction of pupils, equal size. NOSE: Clear with pink turbinates. THROAT: No erythema or exudates. NECK: No masses, no JVD. CHEST: No chest wall deformity. LUNGS: Equal air entry with faint crackles in the posterior bases. CVS: S1 and S2 normal with no audible murmur, regular rhythm. ABDOMEN: No hepatosplenomegaly, normal bowel sounds, no guarding or rigidity. SPINE: Kyphoscoliosis SKIN: Cellulitis lower extremities CENTRAL NERVOUS SYSTEM: No focal deficits, tone is normal in all 4 extremities. EXTREMITIES: There are changes of chronic venous stasis. - Labs CBC & Chem 7: 04/07/18 06:04/07/18 06:01 Labs: Abnormal Lab Results - Last 24 Hours (Table) 04/07/18 04/07/18 Range/Units 06:01 06: RDW 16.8 H (11.5-15.5) % Plt Count 56 L (150-450) k/uL Potassium 3.2 L (3.5-5.1) mmol/L BUN 41 H (9-20) mg/dL Microbiology - Last 24 Hours (Table) 04/02/18 17:40 Blood Culture - Preliminary Blood No Growth after 96 hours Assessment and Plan Assessment: Impression: #1 Acute on chronic hypoxic respiratory failure secondary to an acute exacerbation of systolic congestive heart failure with a severely impaired left ventricular systolic function less than 20%. #2 Chronic atrial fibrillation. #3 Coronary artery disease with previous coronary artery bypass grafting. #4 Progressive weakness. #5 Cellulitis of the bilateral lower extremities with a history of severe peripheral vascular disease and previous MRSA infection. #6 Hypertension. #7 Hyperlipidemia. #8 Rheumatoid arthritis. #9 Pleural thickening, suspect previous asbestos exposure with pulmonary fibrosis. #10 Poor overall functional performance based on the above-mentioned multiple comorbidities. #11 Thrombocytopenia. Heparin has been discontinued. Plan: The patient was seen and evaluated by Dr. Abdalla. He continues to diurese well. Weight down another 2 kg. We will continue to titrate down the FiO2 to maintain O2 saturations greater than 90%. The plan is for discharge to an extended care facility. I, the cosigning physician, performed a history & physical examination of the patient. Lungs sounds with crackles in the bilateral posterior bases. Maintaining good O2 saturations in the 90s on 2 L/m per nasal cannula. I discussed the assessment and plan of care with my nurse practitioner, Valencia Mcbride. I attest to the above note as dictated by her.
--- NOTE | 2018-04-07 15:14 | P.DS ---
Providers Date of admission: 04/02/18 19:20 Expected date of discharge: 04/07/18 Attending physician: Clarence De Anda Consults: 04/03/18 01:10 Consult Physician Routine Consulting Provider: Andrae Moore Consult Reason/Comments: Pneumonia, CHF Do you want consulting provider notified?: Yes, Notify in am 04/03/18 01:13 Consult Physician Routine Consulting Provider: Paul Milligan Consult Reason/Comments: CHF exacerbation Do you want consulting provider notified?: Yes, Notify in am Primary care physician: Clarence Hallman Hospital Course: Final Diagnoses: #1 Acute on chronic hypoxic respiratory failure secondary to an acute exacerbation of systolic congestive heart failure with a severely impaired left ventricular systolic function less than 20%. Ischemic cardiomyopathy with prior AICD. #2 abnormal troponin, possible acute coronary syndrome, maximizing medical therapy #3 Chronic atrial fibrillation. #4 Coronary artery disease with previous coronary artery bypass grafting. #5 Progressive weakness. #6 Cellulitis of the bilateral lower extremities with a history of severe peripheral vascular disease and previous MRSA infection. #7 Hypertension. #8 Hyperlipidemia. #9 Rheumatoid arthritis. Hospital course: This is an 87-year-old gentleman admitted with shortness of breath, multifactorial and multiple other medical issues including poor overall functional performance given multiple comorbidities. Evaluated by pulmonary, cardiology. Maintained on IV antibiotics, nebulized bronchodilators, IV push Lasix. Diuresed well. Significant clinical improvement. Patient has been cleared for discharge by both cardiology and pulmonary. Patient and family considering comfort care. Patient is being discharged to [facility] subacute rehab in a stable condition with guarded prognosis. Physical Exam: Gen.: Sitting up in chair, no acute distress, alert and oriented 3, frail, cardiac hearing. Lungs: Fine bibasilar crackles.CV: Regular S1 and S2, systolic murmur, no rubs or gallops.ABD: Soft, nontender, no organomegaly, positive bowel sounds NEURO: No focal deficits. The impression and plan of care has been dictated as directed. : I performed a history and examination of this patient, discussed the same with the dictator. I agree with the dictator's note ,documented as a scribe. Any additional findings or plans will be noted. Time taken: 35 minutes Patient Condition at Discharge: Stable Plan - Discharge Summary New Discharge Prescriptions: New Acetaminophen Tab [Tylenol] 650 mg PO Q6HR PRN tab PRN Reason: Mild Pain Or Fever > 100.5 Carvedilol [Coreg] 3.125 mg PO BID-W/MEALS tab Furosemide [Lasix] 40 mg PO BID@0900,1600 tab Losartan [Cozaar] 100 mg PO DAILY tab Continue Aspirin 81 mg PO DAILY chew Simvastatin [Zocor] 40 mg PO HS HYDROcodone/APAP 10-325MG [[place] 10-325] 1 tab PO QID PRN #12 tab PRN Reason: Pain Discontinued Furosemide [Lasix] 20 mg PO HS@1600 Losartan [Cozaar] 50 mg PO DAILY Carvedilol [Coreg] 6.25 mg PO BID Furosemide [Lasix] 40 mg PO QAM Discharge Medication List Aspirin 81 mg PO DAILY chew 03/16/17 [Rx] Simvastatin [Zocor] 40 mg PO HS 02/28/18 [History] Acetaminophen Tab [Tylenol] 650 mg PO Q6HR PRN tab 04/07/18 [Rx] Carvedilol [Coreg] 3.125 mg PO BID-W/MEALS tab 04/07/18 [Rx] Furosemide [Lasix] 40 mg PO BID@0900,1600 tab 04/07/18 [Rx] HYDROcodone/APAP 10-325MG [[place] 10-325] 1 tab PO QID PRN #12 tab 04/07/18 [Rx] Losartan [Cozaar] 100 mg PO DAILY tab 04/07/18 [Rx] Follow up Appointment(s)/Referral(s): [facility] [Provider Group] - 1 Week Clarence Hallman MD [Primary Care Provider] - 1 Week (after dc from [facility]) Andrae Moore DO [Doctor of Osteopathic Medicine] - 1 Week Patient Instructions/Handouts: Heart Failure (DC), Heart Healthy Diet (DC) Activity/Diet/Wound Care/Special Instructions: Estephania on D/C CBC,BMP in 3 days antibiotics completed DIET: CHF Diet
[2018-04-07 17:24] LABS: Magnesium 1.9 mg/dL (1.6-2.3); Potassium 3.8 mmol/L (3.5-5.1)
--- NOTE | 2018-04-12 13:41 | P.PN ---
Progress Note - Text Progress Note Date: 04/12/18 This is an addendum to the cardiology progress note dictated. Clinical picture on this admission suggest non-Q-wave myocardial infarction. DNP note has been reviewed, I agree with a documented findings and plan of care. Patient was seen and examined.
== END 2018-04-07 19:29 | disposition other institution (70) | DRG 280 ==
LOC: EC 17:06 → 4MS4W 19:20 → 6SEL 04-03 01:20
PROVIDERS: ADMIT Family Medicine; ATTEND Family Medicine
DX: I11.0 Hypertensive heart disease with heart failure (principal); J15.6 Pneumonia due to other Gram-negative bacteria; I21.4 Non-ST elevation (NSTEMI) myocardial infarction; J96.21 Acute and chronic respiratory failure with hypoxia; E41 Nutritional marasmus; L03.115 Cellulitis of right lower limb; L03.116 Cellulitis of left lower limb; Z68.1 Body mass index [BMI] 19.9 or less, adult; E44.0 Moderate protein-calorie malnutrition; I50.23 Acute on chronic systolic (congestive) heart failure; I25.10 Atherosclerotic heart disease of native coronary artery without angina pectoris; I25.2 Old myocardial infarction; I25.5 Ischemic cardiomyopathy; I48.2 Chronic atrial fibrillation; I87.8 Other specified disorders of veins; I70.241 Atherosclerosis of native arteries of left leg with ulceration of thigh; I70.239 Atherosclerosis of native arteries of right leg with ulceration of unspecified site; T57 Toxic effect of other inorganic substances; J68.4 Chronic respiratory conditions due to chemicals, gases, fumes and vapors; M06.9 Rheumatoid arthritis, unspecified; M19.90 Unspecified osteoarthritis, unspecified site; R32 Unspecified urinary incontinence; R62.7 Adult failure to thrive; Y95 Nosocomial condition; Z79.82 Long term (current) use of aspirin; D69.6 Thrombocytopenia, unspecified; E11.51 Type 2 diabetes mellitus with diabetic peripheral angiopathy without gangrene; E78.5 Hyperlipidemia, unspecified; E87.6 Hypokalemia; Z79.899 Other long term (current) drug therapy; Z82.3 Family history of stroke; Z82.49 Family history of ischemic heart disease and other diseases of the circulatory system; Z86.14 Personal history of Methicillin resistant Staphylococcus aureus infection; Z90.49 Acquired absence of other specified parts of digestive tract; Z95.1 Presence of aortocoronary bypass graft; Z95.810 Presence of automatic (implantable) cardiac defibrillator; Z66 Do not resuscitate; Z87.01 Personal history of pneumonia (recurrent); R53.1 Weakness; Z51.5 Encounter for palliative care
CPT/HCPCS: 36415; 71045; 71046; 72100; 72170; 80048; 80053; 80202; 81003; 82550; 82553; 83605; 83735; 83880; 84132; 84484; 85025; 85027; 85610; 85730; 87040; 93005; 94760; 96365; 96375; 99285

== ENCOUNTER 2018-04-08 20:39 | Observation (INO) | payer MEDICARE ==
[2018-04-08] MEDS ORDERED: SODIUM CHLORIDE 0.9% 1,000 ML IV STA (21:03)
[2018-04-08] MEDS ORDERED: MORPHINE SULFATE 2 MG/ML SYRINGE IV STA (21:03)
--- NOTE | 2018-04-08 21:09 | ED ---
General Adult HPI - General Chief complaint: Back Pain/Injury Stated complaint: lt hip pain Time Seen by Provider: 04/08/18 20:48 Source: patient, family, EMS, RN notes reviewed, old records reviewed Mode of arrival: EMS Limitations: no limitations - History of Present Illness Initial comments: If complaint and history of present illness is 89-year-old male who was in hospital several days ago and recently transferred to [facility] for physical therapy. The patient was no code while in hospital per family. The patient is not getting relief of his chronic back pain with the available pain medications at the facility. While in hospital patient is being treated with oral antibiotics for chronic MRSA infection both lower extremities. When asked the patient states and agrees to a chemical code only should his heart stop. - Related Data Home Medications Medication Instructions Recorded Confirmed Simvastatin [Zocor] 40 mg PO HS 02/28/18 04/03/18 Previous Rx's Medication Instructions Recorded Aspirin 81 mg PO DAILY chew 03/16/17 Acetaminophen Tab [Tylenol] 650 mg PO Q6HR PRN tab 04/07/18 Carvedilol [Coreg] 3.125 mg PO BID-W/MEALS tab 04/07/18 Furosemide [Lasix] 40 mg PO BID@0900,1600 tab 04/07/18 HYDROcodone/APAP 10-325MG [[place] 1 tab PO QID PRN #12 tab 04/07/18 10-325] Losartan [Cozaar] 100 mg PO DAILY tab 04/07/18 Potassium Chloride ER [K-Dur 20] 20 meq PO DAILY #1 tab 04/07/18 Allergies Allergy/AdvReac Type Severity Reaction Status Date / Time No Known Allergies Allergy Verified 04/08/18 20:47 Review of Systems ROS Statement: Those systems with pertinent positive or pertinent negative responses have been documented in the HPI. Review of systems. The patient is hard of hearing. Complains of low back pain which is chronic. While in hospital patient was receiving IV morphine which was covering the pain. As an outpatient oral V[place] did not cover the pain. He was sent emergency room for relief of pain. Past medical problems significant for hyperlipidemia, hypertension, previous NM , pneumonia, rheumatoid arthritis, vascular disorder, chronic bilateral lower extremity infectionsMRSA. Surgeries include AICD, back surgery, bowel resection , coronary bypass, hernia repair, tonsillectomy and small bowel resection. Family history negative. ALLERGIES none. ROS Other: All systems not noted in ROS Statement are negative. Past Medical History Past Medical History: Atrial Fibrillation, Coronary Artery Disease (CAD), Chest Pain / Angina, Heart Failure, Hyperlipidemia, Hypertension, Myocardial Infarction (NM), Osteoarthritis (OA), Pneumonia, Rheumatoid Arthritis (RA), Skin Disorder, Vascular Disorder Additional Past Medical History / Comment(s): has had chronic leg wounds-seen before at [facility]. pt stated he currently has sores on both legs.past falls, uses walker/cane, chronic back pain,, ischemic cardiomyopathy. Pulmonary edema - 2016, [place] Last Myocardial Infarction Date:: 1989 History of Any Multi-Drug Resistant Organisms: MRSA Date of last positivie culture/infection: 02/28/18 MDRO Source:: LEFT LEG Past Surgical History: AICD, Back Surgery, Bowel Resection, Coronary Bypass/CABG , Heart Catheterization, Hernia Repair, Tonsillectomy Additional Past Surgical History / Comment(s): small bowel resection for history of small bowel obstruction, yessy inguinal hernia repair, 5 vessel CABG in 1989 at [facility], back surgery x3, AICD placement/had generator change in 2014, back surgery, previous history of bowel resection, tonsillectomy, hernia repair Past Anesthesia/Blood Transfusion Reactions: No Reported Reaction Type of Cardiac Device: AICD Device Placement Date:: May 19, 2015 Past Psychological History: No Psychological Hx Reported Smoking Status: Never smoker Past Alcohol Use History: None Reported Past Drug Use History: None Reported - Past Family History Father Family Medical History: Coronary Artery Disease (CAD) Additional Family Medical History / Comment(s): of heart attack age 86 Mother Additional Family Medical History / Comment(s): age 77 of stroke or heart attack General Exam - General Exam Comments Initial Comments: General: The patient is frail, awake, hard of hearing, complaining of low back pain even after oral pain medication. Vital signs temperature 97.7 pulse 61 respiratory rate 16 pulse ox 95% room air blood pressure 141/65 Eye: Pupils are equal, round and reactive to light, extra-ocular movements are intact ; Ears, nose, mouth and throat: Mildly dry mucous membranes Neck: Advanced arthritic changes with chronic neck and back pain. Cardiovascular: There is a regular rate and rhythm. No murmur, Respiratory: Lungs are clear to auscultation, respirations are non-labored, breath sounds are equal. Gastrointestinal: No pain on palpation of the abdomen. Active bowel sounds. Back: Chronic back pain with history of decubitus ulcer. Patient not rolled for examination because of his severe back pain at this time. Musculoskeletal: Pressure sores on lower heels, patted heel protectors in place. Chronic lower extremity cellulitisMRSA per family .Neurological: No hard of hearing the patient did answer questions concerning pain. Also concerning his wishes for chemical code only which was explained to him. Skin: Cellulitis lower extremities.Psychiatric: Limitations: no limitations Course Vital Signs 04/08/18 20:45 Temperature 97.7 F Pulse Rate 61 Respiratory 16 Rate Blood Pressure 141/65 O2 Sat by Pulse 95 Oximetry Medical Decision Making - Medical Decision Making Medical decision making; this is a 87-year-old male with intractable back pain not controlled with oral medications. Patient's labs show white count of 8.8 hemoglobin 15 hematocrit of 49 with a potassium 3.7. BUN 42 creatinine 1.0 the GFR 60. Glucose 112. Urine shows 12 reds 17 whites. Patient be admitted for intractable back pain, comfort measures. Case discussed withTon lee, on-call for Dr. Hallman. - Lab Data Result diagrams: 04/08/18 21:12 04/08/18 21:12 Lab Results 04/08/18 04/08/18 04/08/18 Range/Units 21:12 21:12 21:12 WBC 8.8 (3.8-10.6) k/uL RBC 5.90 (4.30-5.90) m/uL Hgb 15.2 (13.0-17.5) gm/dL Hct 49.4 (39.0-53.0) % MCV 83.7 (80.0-100.0) fL MCH 25.8 (25.0-35.0) pg MCHC 30.8 L (31.0-37.0) g/dL RDW 16.7 H (11.5-15.5) % Plt Count 60 L (150-450) k/uL Neutrophils % 70 % Lymphocytes % 18 % Monocytes % 8 % Eosinophils % 1 % Basophils % 1 % Neutrophils # 6.1 (1.3-7.7) k/uL Lymphocytes # 1.6 (1.0-4.8) k/uL Monocytes # 0.7 (0-1.0) k/uL Eosinophils # 0.1 (0-0.7) k/uL Basophils # 0.1 (0-0.2) k/uL Anisocytosis Slight Sodium 142 (137-145) mmol/L Potassium 3.7 (3.5-5.1) mmol/L Chloride 102 (98-107) mmol/L Carbon Dioxide 27 (22-30) mmol/L Anion Gap 13 mmol/L BUN 42 H (9-20) mg/dL Creatinine 1.00 (0.66-1.25) mg/dL Est GFR (CKD-EPI)AfAm 79 (>60 ml/min/1.73 sqM) Est GFR (CKD-EPI)NonAf 68 (>60 ml/min/1.73 sqM) Glucose 112 H (74-99) mg/dL Calcium 9.0 (8.4-10.2) mg/dL Total Bilirubin 0.9 (0.2-1.3) mg/dL AST 36 (17-59) U/L ALT 39 (21-72) U/L Alkaline Phosphatase 280 H (38-126) U/L Total Protein 5.9 L (6.3-8.2) g/dL Albumin 2.9 L (3.5-5.0) g/dL Urine Color Yellow Urine Appearance Cloudy (Clear) Urine pH 5.0 (5.0-8.0) Ur Specific [place] 1.009 (1.001-1.035) Urine Protein 1+ H (Negative) Urine Glucose (UA) Negative (Negative) Urine Ketones Negative (Negative) Urine Blood Moderate H (Negative) Urine Nitrite Negative (Negative) Urine Bilirubin Negative (Negative) Urine Urobilinogen <2.0 (<2.0) mg/dL Ur Leukocyte Esterase Moderate H (Negative) Urine RBC 12 H (0-5) /hpf Urine WBC 17 H (0-5) /hpf Amorphous Sediment Rare H (None) /hpf Urine Bacteria Rare H (None) /hpf Hyaline Casts 1 (0-2) /lpf Urine Mucus Rare H (None) /hpf Disposition Clinical Impression: Back pain of lumbar region with sciatica Disposition: ADMITTED IP TO THIS [facility] Condition: Poor Is patient prescribed a controlled substance at d/c from ED?: No Referrals: Clarence Hallman MD [Primary Care Provider] - 1-2 days
[2018-04-08 21:39] LABS: Anisocytosis Slight; Basophils # (A) 0.1 k/uL (0-0.2); Basophils % (A) 1 %; Eosinophils # (A) 0.1 k/uL (0-0.7); Eosinophils % (A) 1 %; HCT 49.4 % (39.0-53.0); HGB 15.2 gm/dL (13.0-17.5); Lymphocytes # (A) 1.6 k/uL (1.0-4.8); Lymphocytes % (A) 18 %; MCH 25.8 pg (25.0-35.0); MCHC 30.8 g/dL (31.0-37.0); MCV 83.7 fL (80.0-100.0); Mean Platelet Volume 9.1; Monocytes # (A) 0.7 k/uL (0-1.0); Monocytes % (A) 8 %; Neutrophils # (A) 6.1 k/uL (1.3-7.7); Neutrophils % (A) 70 %; RDW 16.7 % (11.5-15.5); WBC 8.8 k/uL (3.8-10.6)
[2018-04-08 21:49] LABS: Albumin 2.9 g/dL (3.5-5.0); Amorphous Sediment,Urine Rare /hpf; Appearance,Urine Cloudy (Clear); Bacteria,Urine Rare /hpf; Bilirubin,Urine Negative (Negative); Blood,Urine Moderate (Negative); Color,Urine Yellow; Glucose,Urine (UA) Negative (Negative); Hyaline Casts,Urine 1 /lpf (0-2); Ketones,Urine Negative (Negative); Leukocyte Esterase,Urine Moderate (Negative); Mucus,Urine Rare /hpf; Nitrite,Urine Negative (Negative); Platelet Count 60 k/uL (150-450); Potassium 3.7 mmol/L (3.5-5.1); Protein,Urine 1+ (Negative); RBC,Urine 12 /hpf (0-5); Specific Gravity,Urine 1.009 (1.001-1.035); Total Bilirubin 0.9 mg/dL (0.2-1.3); Total Protein 5.9 g/dL (6.3-8.2); Urobilinogen,Urine <2.0 mg/dL (<2.0); WBC,Urine 17 /hpf (0-5)
[2018-04-08] MEDS ORDERED: NALOXONE 0.4 MG/ML 1 ML VIAL IV PRN (21:58)
[2018-04-08] MEDS ORDERED: SODIUM CHLORIDE 0.9% 1,000 ML IV SCH (22:00)
[2018-04-08] MEDS ORDERED: MORPHINE SULFATE 2 MG/ML SYRINGE IVP STA (22:25)
[2018-04-09] MEDS: MORPHINE SULFATE 2 MG/ML SYRINGE IV PRN ×3 (02:32→15:44)
[2018-04-09 06:35] VITALS: BP 134/71; PULSE 51; RESP 16; TEMP 97.8
[2018-04-09] MEDS ORDERED: CARVEDILOL 3.125 MG TAB PO SCH (07:30)
[2018-04-09] MEDS ORDERED: POTASSIUM CHLORIDE ER 20 MEQ TAB.ER PO SCH (09:00)
[2018-04-09] MEDS ORDERED: PANTOPRAZOLE 40 MG/10 ML VIAL IV SCH (09:00)
[2018-04-09] MEDS ORDERED: LOSARTAN 50 MG TAB PO SCH (09:00)
[2018-04-09] MEDS ORDERED: FUROSEMIDE 40 MG TAB PO SCH (09:00)
[2018-04-09] MEDS ORDERED: ASPIRIN 81 MG PO SCH (09:00)
--- NOTE | 2018-04-09 13:33 | P.HPIM ---
History of Present Illness Patient is a very pleasant gentleman with multiple medical problems including extremely low ejection fraction bedbound very low Karnofsky score group home resident. With the decubitus ulcerations. Patient has multiple hospitalizations. Patient was discharged from my service couple days ago. At the time of discharge me and my nurse practitioner had extensive discussion with the family regarding hospice and comfort care initially family decided on hospice later I believe because of financial issues, hospice was not opted at that time. Patient comes back again with uncontrolled pain on oral medications , after extensive discussion with the family patient is being admitted this time as inpatient hospice for recurrent symptomatic management. Hospice services will be consulted. All other medications were discontinued except for comfort medications. Review of Systems Unable to obtain Past Medical History Past Medical History: Atrial Fibrillation, Coronary Artery Disease (CAD), Chest Pain / Angina, Heart Failure, Hyperlipidemia, Hypertension, Myocardial Infarction (MT), Osteoarthritis (OA), Pneumonia, Rheumatoid Arthritis (RA), Skin Disorder, Vascular Disorder Additional Past Medical History / Comment(s): has had chronic leg wounds-seen before at [facility]. pt stated he currently has sores on both legs.past falls, uses walker/cane, chronic back pain,, ischemic cardiomyopathy. Pulmonary edema - 2016, [place] Last Myocardial Infarction Date:: 1989 History of Any Multi-Drug Resistant Organisms: MRSA Date of last positivie culture/infection: 02/28/18 MDRO Source:: LEFT LEG Past Surgical History: AICD, Back Surgery, Bowel Resection, Coronary Bypass/CABG , Heart Catheterization, Hernia Repair, Tonsillectomy Additional Past Surgical History / Comment(s): small bowel resection for history of small bowel obstruction, yessy inguinal hernia repair, 5 vessel CABG in 1989 at [facility], back surgery x3, AICD placement/had generator change in 2014, back surgery, previous history of bowel resection, tonsillectomy, hernia repair Past Anesthesia/Blood Transfusion Reactions: No Reported Reaction Type of Cardiac Device: AICD Device Placement Date:: May 19, 2015 Past Psychological History: No Psychological Hx Reported Smoking Status: Never smoker Past Alcohol Use History: None Reported Past Drug Use History: None Reported - Past Family History Father Family Medical History: Coronary Artery Disease (CAD) Additional Family Medical History / Comment(s): of heart attack age 86 Mother Additional Family Medical History / Comment(s): age 77 of stroke or heart attack Medications and Allergies Home Medications Medication Instructions Recorded Confirmed Type Aspirin 81 mg PO DAILY chew 03/16/17 04/09/18 Rx Acetaminophen Tab [Tylenol] 650 mg PO Q6HR PRN tab 04/07/18 04/09/18 Rx Losartan [Cozaar] 100 mg PO DAILY tab 04/07/18 04/09/18 Rx Potassium Chloride ER [K-Dur 20] 20 meq PO DAILY #1 tab 04/07/18 04/09/18 Rx Ammonium Lactate Cream [Lac-Hydrin 1 applic TOPICAL BID 04/09/18 04/09/18 History 12% Cream] Atorvastatin [Lipitor] 20 mg PO HS@2100 04/09/18 04/09/18 History Carvedilol [Coreg] 3.125 mg PO BID@0900,1700 04/09/18 04/09/18 History Furosemide [Lasix] 40 mg PO BID@0600,1400 04/09/18 04/09/18 History HYDROcodone/APAP 10-325MG [[place] 1 tab PO Q6H PRN 04/09/18 04/09/18 History 10-325] Allergies Allergy/AdvReac Type Severity Reaction Status Date / Time No Known Allergies Allergy Verified 04/09/18 12:50 Physical Exam Vitals: Vital Signs Temp Pulse Pulse Resp BP BP Pulse Ox 04/09/18 05:20 97.8 F 51 L 16 134/71 92 L 04/08/18 23:39 52 L 04/08/18 23:15 97.5 F L 52 L 22 160/72 94 L 04/08/18 22:34 61 18 133/64 98 04/08/18 20:45 97.7 F 61 16 141/65 95 Intake and Output 04/08/18 04/09/18 04/09/18 22:59 06:59 14:59 Intake Total 480 Balance 480 Intake: Intake, IV Titration 480 Amount Sodium Chloride 0.9% 1, 480 000 ml @ 80 mls/hr IV . [id number] [facility] Rx#:[id number] Other: Voiding Method Indwelling Catheter Indwelling Catheter Weight 63.503 kg PHYSICAL EXAMINATION: GENERAL: Is arousable but drowsy excessively sleepy HEENT: Pupils are round and equally reacting to light. EOMI. No scleral icterus. No conjunctival pallor. Normocephalic, atraumatic. No pharyngeal erythema. No thyromegaly. CARDIOVASCULAR: S1 and S2 present. No murmurs, rubs, or gallops. PULMONARY: Decreased respiration rhonchus breath sounds gurgly sounds ABDOMEN: Soft, nontender, nondistended, normoactive bowel sounds. No palpable organomegaly. MUSCULOSKELETAL: No joint swelling or deformity. EXTREMITIES: No cyanosis, clubbing, or pedal edema. NEUROLOGICAL: Unable to assess SKIN: Decubitus ulcerations unchanged Results CBC & Chem 7: 04/08/18 21:12 04/08/18 21:12 Labs: Abnormal Lab Results - Last 24 Hours (Table) 04/08/18 04/08/18 04/08/18 Range/Units 21:12 21:12 21:12 MCHC 30.8 L (31.0-37.0) g/dL RDW 16.7 H (11.5-15.5) % Plt Count 60 L (150-450) k/uL BUN 42 H (9-20) mg/dL Glucose 112 H (74-99) mg/dL Alkaline Phosphatase 280 H (38-126) U/L Total Protein 5.9 L (6.3-8.2) g/dL Albumin 2.9 L (3.5-5.0) g/dL Urine Protein 1+ H (Negative) Urine Blood Moderate H (Negative) Ur Leukocyte Esterase Moderate H (Negative) Urine RBC 12 H (0-5) /hpf Urine WBC 17 H (0-5) /hpf Amorphous Sediment Rare H (None) /hpf Urine Bacteria Rare H (None) /hpf Urine Mucus Rare H (None) /hpf Microbiology - Last 24 Hours (Table) 04/08/18 21:12 Urine Culture - Preliminary Urine,Catheterized Thrombosis Risk Factor Assmnt - Choose All That Apply Any of the Below Risk Factors Present?: Yes Each Risk Factor Represents 3 Points: Age 75 years or older Thrombosis Risk Factor Assessment Total Risk Factor Score: 3 Thrombosis Risk Factor Assessment Level: Moderate Risk Assessment and Plan Plan: -Congestive heart failure chronic systolic dysfunction, acute exacerbation is alert at this time -Chronic atrial fibrillation -Generalized deconditioning -Extremely poor functionality -Coronary artery disease -Peripheral vascular disease -Hypertension Hyperlipidemia -Chronic low back pain Patient will be started on inpatient hospice measures and comfort measures and hospice services was consulted
[2018-04-09] MEDS ORDERED: ATORVASTATIN 20 MG TAB PO SCH (21:00)
--- NOTE | 2018-04-10 10:50 | P.DS ---
Providers Date of admission: 04/08/18 21:58 Attending physician: Clarence Hallman Primary care physician: Clarence Hallman Hospital Course: Patient is being admitted as inpatient hospice Patient Condition at Discharge: Poor Plan - Discharge Summary New Discharge Prescriptions: No Action Aspirin 81 mg PO DAILY chew Acetaminophen Tab [Tylenol] 650 mg PO Q6HR PRN tab PRN Reason: Mild Pain Or Fever > 100.5 Losartan [Cozaar] 100 mg PO DAILY tab Potassium Chloride ER [K-Dur 20] 20 meq PO DAILY #1 tab HYDROcodone/APAP 10-325MG [[place] 10-325] 1 tab PO Q6H PRN PRN Reason: Pain Carvedilol [Coreg] 3.125 mg PO BID@0900,1700 Furosemide [Lasix] 40 mg PO BID@0600,1400 Atorvastatin [Lipitor] 20 mg PO HS@2100 Ammonium Lactate Cream [Lac-Hydrin 12% Cream] 1 applic TOPICAL BID Discharge Medication List Aspirin 81 mg PO DAILY chew 03/16/17 [Rx] Acetaminophen Tab [Tylenol] 650 mg PO Q6HR PRN tab 04/07/18 [Rx] Losartan [Cozaar] 100 mg PO DAILY tab 04/07/18 [Rx] Potassium Chloride ER [K-Dur 20] 20 meq PO DAILY #1 tab 04/07/18 [Rx] Ammonium Lactate Cream [Lac-Hydrin 12% Cream] 1 applic TOPICAL BID 04/09/18 [ History] Atorvastatin [Lipitor] 20 mg PO HS@2100 04/09/18 [History] Carvedilol [Coreg] 3.125 mg PO BID@0900,1700 04/09/18 [History] Furosemide [Lasix] 40 mg PO BID@0600,1400 04/09/18 [History] HYDROcodone/APAP 10-325MG [[place] 10-325] 1 tab PO Q6H PRN 04/09/18 [History] Follow up Appointment(s)/Referral(s): Clarence Hallman MD [Primary Care Provider] - 1-2 days Discharge Disposition: DISCH TO [facility]
== END 2018-04-09 16:55 | disposition hospice, inpatient (51) ==
LOC: EC 20:39 → 5MS5E 21:58
PROVIDERS: ADMIT Family Medicine; ATTEND Family Medicine
DX: I11.0 Hypertensive heart disease with heart failure (principal); I50.23 Acute on chronic systolic (congestive) heart failure; I48.2 Chronic atrial fibrillation; I25.10 Atherosclerotic heart disease of native coronary artery without angina pectoris; I73.9 Peripheral vascular disease, unspecified; E78.5 Hyperlipidemia, unspecified; G89.29 Other chronic pain; M54.5 Low back pain; M54.30 Sciatica, unspecified side; L89.90 Pressure ulcer of unspecified site, unspecified stage; I25.2 Old myocardial infarction; M19.90 Unspecified osteoarthritis, unspecified site; M06.9 Rheumatoid arthritis, unspecified; I25.5 Ischemic cardiomyopathy; J81.1 Chronic pulmonary edema; H91.90 Unspecified hearing loss, unspecified ear; Z86.14 Personal history of Methicillin resistant Staphylococcus aureus infection; Z87.01 Personal history of pneumonia (recurrent); Z91.81 History of falling; Z95.1 Presence of aortocoronary bypass graft; Z98.0 Intestinal bypass and anastomosis status; Z95.810 Presence of automatic (implantable) cardiac defibrillator; Z82.3 Family history of stroke; Z79.82 Long term (current) use of aspirin; Z79.899 Other long term (current) drug therapy; Z66 Do not resuscitate; Z74.01 Bed confinement status
CPT/HCPCS: 99285 ×2; 96374 ×2; 96361 ×5; 96376 ×3; 96375; 36415; 80053; 85025; 81001; 87086; G0378 ×2; J2270 ×2; C9113

== ENCOUNTER 2018-04-09 17:04 | Inpatient (IN) | payer OTHER ==
[2018-04-09] MEDS ORDERED: LORazepam 2 MG/ML INJ IV PRN (17:12)
[2018-04-09] MEDS ORDERED: SCOPOLAMINE 1.5MG/72HR PATCH TRANSDERM SCH (21:00)
[2018-04-09] MEDS: MORPHINE SULFATE 2 MG/ML SYRINGE IVP PRN (21:45)
[2018-04-10 00:05] VITALS: RESP 20
[2018-04-10] MEDS: MORPHINE SULFATE 2 MG/ML SYRINGE IVP PRN ×2 (01:45→05:53)
[2018-04-10 06:00] VITALS: PULSE 46
--- NOTE | 2018-04-10 10:51 | P.HPIM ---
History of Present Illness Patient is a very pleasant gentleman with multiple medical problems including extremely low ejection fraction bedbound very low Karnofsky score [facility] resident. With the decubitus ulcerations. Patient has multiple hospitalizations. Patient was discharged from my service couple days ago. At the time of discharge me and my nurse practitioner had extensive discussion with the family regarding hospice and comfort care initially family decided on hospice later I believe because of financial issues, hospice was not opted at that time. Patient comes back again with uncontrolled pain on oral medications , after extensive discussion with the family patient is being admitted this time as inpatient hospice for recurrent symptomatic management. Hospice services will be consulted. All other medications were discontinued except for comfort medications. Past Medical History Past Medical History: Atrial Fibrillation, Coronary Artery Disease (CAD), Chest Pain / Angina, Heart Failure, Hyperlipidemia, Hypertension, Myocardial Infarction (MD), Osteoarthritis (OA), Pneumonia, Rheumatoid Arthritis (RA), Skin Disorder, Vascular Disorder Additional Past Medical History / Comment(s): has had chronic leg wounds-seen before at [facility]. pt stated he currently has sores on both legs.past falls, uses walker/cane, chronic back pain,, ischemic cardiomyopathy. Pulmonary edema - 2016, [place] Last Myocardial Infarction Date:: 1989 History of Any Multi-Drug Resistant Organisms: MRSA Date of last positivie culture/infection: 02/28/18 MDRO Source:: LEFT LEG Past Surgical History: AICD, Back Surgery, Bowel Resection, Coronary Bypass/CABG , Heart Catheterization, Hernia Repair, Tonsillectomy Additional Past Surgical History / Comment(s): small bowel resection for history of small bowel obstruction, yessy inguinal hernia repair, 5 vessel CABG in 1989 at [facility], back surgery x3, AICD placement/had generator change in 2014, back surgery, previous history of bowel resection, tonsillectomy, hernia repair Past Anesthesia/Blood Transfusion Reactions: No Reported Reaction Type of Cardiac Device: AICD Device Placement Date:: May 19, 2015 Past Psychological History: No Psychological Hx Reported Smoking Status: Never smoker Past Alcohol Use History: None Reported Past Drug Use History: None Reported - Past Family History Father Family Medical History: Coronary Artery Disease (CAD) Additional Family Medical History / Comment(s): of heart attack age 86 Mother Additional Family Medical History / Comment(s): age 77 of stroke or heart attack Medications and Allergies Home Medications Medication Instructions Recorded Confirmed Type Aspirin 81 mg PO DAILY chew 03/16/17 04/09/18 Rx Acetaminophen Tab [Tylenol] 650 mg PO Q6HR PRN tab 04/07/18 04/09/18 Rx Losartan [Cozaar] 100 mg PO DAILY tab 04/07/18 04/09/18 Rx Potassium Chloride ER [K-Dur 20] 20 meq PO DAILY #1 tab 04/07/18 04/09/18 Rx Ammonium Lactate Cream [Lac-Hydrin 1 applic TOPICAL BID 04/09/18 04/09/18 History 12% Cream] Atorvastatin [Lipitor] 20 mg PO HS@2100 04/09/18 04/09/18 History Carvedilol [Coreg] 3.125 mg PO BID@0900,1700 04/09/18 04/09/18 History Furosemide [Lasix] 40 mg PO BID@0600,1400 04/09/18 04/09/18 History HYDROcodone/APAP 10-325MG [[place] 1 tab PO Q6H PRN 04/09/18 04/09/18 History 10-325] Allergies Allergy/AdvReac Type Severity Reaction Status Date / Time No Known Allergies Allergy Verified 04/09/18 12:50 Physical Exam Vitals: Vital Signs Pulse Resp Pulse Ox 04/10/18 03:30 46 L 20 86 L 04/09/18 23:00 50 L 20 86 L Intake and Output 04/09/18 04/10/18 04/10/18 22:59 06:59 14:59 Output Total 500 Balance -500 Output: Urine 500 Other: Voiding Method Indwelling Catheter Weight 63.5 kg PHYSICAL EXAMINATION: GENERAL: Is arousable but drowsy excessively sleepy HEENT: Pupils are round and equally reacting to light. EOMI. No scleral icterus. No conjunctival pallor. Normocephalic, atraumatic. No pharyngeal erythema. No thyromegaly. CARDIOVASCULAR: S1 and S2 present. No murmurs, rubs, or gallops. PULMONARY: Decreased respiration rhonchus breath sounds gurgly sounds ABDOMEN: Soft, nontender, nondistended, normoactive bowel sounds. No palpable organomegaly. MUSCULOSKELETAL: No joint swelling or deformity. EXTREMITIES: No cyanosis, clubbing, or pedal edema. NEUROLOGICAL: Unable to assess SKIN: Decubitus ulcerations unchanged Thrombosis Risk Factor Assmnt - Choose All That Apply Each Risk Factor Represents 2 Points: Patient confined to bed Each Risk Factor Represents 3 Points: Age 75 years or older Thrombosis Risk Factor Assessment Total Risk Factor Score: 5 Thrombosis Risk Factor Assessment Level: High Risk Assessment and Plan Plan: Assessment and Plan Plan: -Congestive heart failure chronic systolic dysfunction, acute exacerbation is alert at this time -Chronic atrial fibrillation -Generalized deconditioning -Extremely poor functionality -Coronary artery disease -Peripheral vascular disease -Hypertension Hyperlipidemia -Chronic low back pain Patient will be started on inpatient hospice measures and comfort measures and hospice services was consulted
--- NOTE | 2018-04-10 10:52 | P.DS ---
Providers Date of admission: 04/09/18 17:04 Attending physician: Annika De Anda Primary care physician: Clarence Hallman [facility] Course: Patient today please refer to nursing documentation for time of . Plan - Discharge Summary New Discharge Prescriptions: No Action Aspirin 81 mg PO DAILY chew Acetaminophen Tab [Tylenol] 650 mg PO Q6HR PRN tab PRN Reason: Mild Pain Or Fever > 100.5 Losartan [Cozaar] 100 mg PO DAILY tab Potassium Chloride ER [K-Dur 20] 20 meq PO DAILY #1 tab HYDROcodone/APAP 10-325MG [[place] 10-325] 1 tab PO Q6H PRN PRN Reason: Pain Carvedilol [Coreg] 3.125 mg PO BID@0900,1700 Furosemide [Lasix] 40 mg PO BID@0600,1400 Atorvastatin [Lipitor] 20 mg PO HS@2100 Ammonium Lactate Cream [Lac-Hydrin 12% Cream] 1 applic TOPICAL BID Discharge Medication List Aspirin 81 mg PO DAILY chew 03/16/17 [Rx] Acetaminophen Tab [Tylenol] 650 mg PO Q6HR PRN tab 04/07/18 [Rx] Losartan [Cozaar] 100 mg PO DAILY tab 04/07/18 [Rx] Potassium Chloride ER [K-Dur 20] 20 meq PO DAILY #1 tab 04/07/18 [Rx] Ammonium Lactate Cream [Lac-Hydrin 12% Cream] 1 applic TOPICAL BID 04/09/18 [ History] Atorvastatin [Lipitor] 20 mg PO HS@2100 04/09/18 [History] Carvedilol [Coreg] 3.125 mg PO BID@0900,1700 04/09/18 [History] Furosemide [Lasix] 40 mg PO BID@0600,1400 04/09/18 [History] HYDROcodone/APAP 10-325MG [[place] 10-325] 1 tab PO Q6H PRN 04/09/18 [History] Discharge Disposition: - Preliminary Cause of Preliminary Cause of : Congestive heart failure
== END 2018-04-10 07:10 | disposition expired | DRG 951 ==
LOC: 5MS5E 17:04
PROVIDERS: ADMIT Internal Medicine; ATTEND Internal Medicine
DX: Z51.5 Encounter for palliative care (principal); I50.33 Acute on chronic diastolic (congestive) heart failure; I11.0 Hypertensive heart disease with heart failure; E78.5 Hyperlipidemia, unspecified; G89.29 Other chronic pain; I25.10 Atherosclerotic heart disease of native coronary artery without angina pectoris; I25.2 Old myocardial infarction; I25.5 Ischemic cardiomyopathy; I48.2 Chronic atrial fibrillation; I73.9 Peripheral vascular disease, unspecified; L89.90 Pressure ulcer of unspecified site, unspecified stage; M06.9 Rheumatoid arthritis, unspecified; Z74.01 Bed confinement status; Z79.82 Long term (current) use of aspirin; Z79.899 Other long term (current) drug therapy; Z82.3 Family history of stroke; Z82.49 Family history of ischemic heart disease and other diseases of the circulatory system; Z90.49 Acquired absence of other specified parts of digestive tract; Z95.1 Presence of aortocoronary bypass graft; Z95.810 Presence of automatic (implantable) cardiac defibrillator